=== PATIENT | male | born 1945 | race Caucasian/White ===

== ENCOUNTER → 2017-09-19 08:16 | Outpatient (CLI) | payer MEDICARE, OTHER, SELFPAY ==
--- NOTE | 2017-09-19 08:35 | MERGEMPI_ITS ---
*[facility]* *[facility]* [address] [place] [address] Myocardial Perfusion Imaging - SPECT Kumar protocol Date of study: 09/19/2017 *PATIENT PRESENTATION* Height: 175.3cm (69in) Blood Pressure: Weight: 116.4kg (256lb) BSA: 2.43m^2 Referring physician: Russell Moreira Ordering physician: Jimmy Swann Impressions: Normal myocardial perfusion and contraction after pharmacological stress. Summary: 1. Myocardial perfusion imaging: No myocardial perfusion defects noted. 2. The calculated left ventricular ejection fraction after stress: 57%. LV global systolic function is normal. No left ventricular regional motion abnormality. 3. 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 4. Imaging information: gated. Image quality reduced due to diaphragmatic attenuation. Attenuation correction used. Indication: R07.9. History: REASON FOR TESTING: EXERTIONAL CHEST PAIN OVER THE LAST SEVERAL MONTHS. PMH: HYPERTENSION, HYPERLIPIDEMIA, DEPRESSION, DM, CAD S/P LAD STENTING IN 2001, AND NSTEMI S/PLAD TANVI 10/2013. ERECTILE DISORDER. FAMILY HX: FATHER- HYPERTENSION, HYPERCHOLESTEROLEMIA, ASCD. MOTHER- CVA, HYPERCHOLESTEROLEMIA. SMOKING: FORMER SMOKER. QUIT 2001 EXCERCISE: NO REGULAR EXCERCISE. Risk factors: Cholesterol: 178mg/dl. HDL: 54mg/dl. LDL: 114mg/dl. Triglycerides: 84mg/dl. ALLERGIES: NKDA. MEDICATIONS: ASPIRIN 81 MG DAILY, ATORVASTATIN 80 MG DAILY, BUPROPION HCL 150 MG BID, LORATADINE 10 MG DAILY, LOSARTAN 50 MG DAILY, METOPROLOL 25 MG BID, MULTIVITAMIN 1 DAILY, NITROGLYCERIN 0.4 MG SL NEEDED, SILDENAFIL 50 MG NEEDED, TICAGRELOR 90 MG BID. Imaging Technique: Protocol: Kumar protocol. Acquisition: Gated SPECT; 1 day - rest/stress. The patient was imaged in the supine position. Attenuation correction used. Isotope administration: - Rest. Tc[99m]-sestamibi. Dose: 12.6mCi. Injection time: 09:00 AM. Injection to stress time: 00:45. - Stress. Tc[99m]-sestamibi. Dose: 37mCi. Injection time: 11:25 AM. 1-2 min before end of exercise Baseline ECG: LAST EKG 10/17/13- SINUS RHYTHM, FIRST DEGREE AVB, RBBB, LAFB. HR 62. TODAY'S EKG-SINUS RHYTH, FIRST DEGREE AVB, RBBB, LAFB. HR 62. 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 Stress protocol: + +---+ +---+ !Stage !HR !BP (mmHg) !Sat! + +---+ +---+ !Baseline supine !62 !180/94 (123)!97%! + +---+ +---+ !Baseline standing !62 !174/90 (118)!---! + +---+ +---+ !Stage I; 1.7mph, 10degrees; 3 min!124!184/90 (121)!95%! + +---+ +---+ !Recovery; 1 min !132!210/98 (135)!---! + +---+ +---+ !Recovery; 3 min !89 !218/90 (133)!---! + +---+ +---+ !Recovery; 6 min !79 !178/88 (118)!---! + +---+ +---+ * Stress results: The rate-pressure product for the peak heart rate and blood pressure was 20038tt Hg/min. Stress ECG: EXCERCISE TESTING ENDED IN 4MINS, 15 SECS DUE TO FATIGUE . MAX HR WAS 138, 93% OF TARGET. HYPERTENSIVE BLOOD PRESSURE RESPONSE. METS: 6.14. ECTOPY: NONE NOTED. ANGINA: NO REPORTED CHEST PAIN OR PRESSURE. ISCHEMIA: NO ISCHEMIC CHANGES NOTED, FUNCTIONAL CAPACITY: AVERAGE CAPACITY. Myocardial perfusion: Imaging information: gated. Image quality reduced due to diaphragmatic attenuation. Left ventricular size is normal. No myocardial perfusion defects noted. Ventricular Function (Wall Motion): The calculated left ventricular ejection fraction after stress: 57%. LV global systolic function is normal. No left ventricular regional motion abnormality. Study data: Russell Moreira MD supervised and was readily available during the procedure. This study was interpreted by [facility]. Study status: Routine. Consent: The risks, benefits, and alternatives to the procedure were explained to the patient and informed consent was obtained. Procedure: Initial setup. A baseline ECG was recorded. Surface ECG leads and manual cuff blood pressure measurements were monitored. Heart sounds: Normal. Lung sounds: Normal. Treadmill exercise testing was performed using the Kumar protocol. Study completion: All catheters inserted during the procedure were removed. The patient tolerated the procedure well and was discharged from the lab. Discharge: The patient left the laboratory in stable condition. Birthdate: Patient birthdate: 1945. Sex: Gender: male. Study date: Study date: 09/19/2017. Study time: 08:35 AM. Signature Documentation: - The imaging portion of this study was interpreted by [facility]utter Russell Moreira MD. - The Stress ECG portion of this study was interpreted by Russell Moreira MD. Electronically signed by Russell Moreira 09/19/2017 12:58
== END ==
PROVIDERS: PCP Family Medicine; Visit Provider Family Medicine
DX: R07.89 Other chest pain (principal); I10 Essential (primary) hypertension; E78.5 Hyperlipidemia, unspecified; Z95.5 Presence of coronary angioplasty implant and graft
CPT/HCPCS: 78452; 93017; 93016; 93018

== ENCOUNTER 2017-10-29 11:38 | Outpatient (CLI) | payer MEDICARE, OTHER, SELFPAY ==
[2017-10-29 14:57] LABS: BUN 16 mg/dL (7-18); Calcium 9.1 mg/dL (8.5-10.1); Chloride 104 mmol/L (98-107); Glucose 99 mg/dL (70-100); Potassium 4.3 mmol/L (3.5-5.1); Sodium 141 mmol/L (136-145)
== END 2017-10-29 11:58 ==
PROVIDERS: PCP Family Medicine; Visit Provider Family Medicine
DX: I10 Essential (primary) hypertension (principal)
CPT/HCPCS: 36415; 80048

== ENCOUNTER 2018-10-19 16:37 | Emergency (ER) | payer MEDICARE, OTHER, SELFPAY ==
[2018-10-19] VITALS (41 sets, daily range): BP systolic 133–178; BP diastolic 61–97; PULSE 56–92; RESP 11–24; TEMP 36.7; O2SAT 92–98
[2018-10-19 17:18] LABS: Abs Immature Grans 0.03 k/cumm (0.0-0.09); Absolute Basophil Count 0.05 k/cumm (0.0-0.2); Absolute Eosinophil Count 0.09 k/cumm (0.0-0.7); Absolute Lymphocyte Count 2.06 k/cumm (1.2-3.4); Absolute Monocyte Count 0.77 k/cumm (0.11-0.7); Absolute Neutrophil Count 7.51 k/cumm (1.2-6.7); Basophils % 0.5; Eosinophils % 0.9; HGB 15.1 g/dL (13.5-17.5); Immature Grans % 0.3; Lymphocytes % 19.6; Mean Corp. HGB Concentration 33.6 g/dL (32.0-36.0); Mean Corpuscular Hemoglobin 30.5 pg (27.0-33.0); Mean Corpuscular Volume 90.9 fL (80-95); Monocytes % 7.3; Neutrophils % 71.4; Platelet Count 266 x1000/uL (130-400); RBC 4.95 m/cumm (4.50-6.00); White Blood Cell Count 10.51 k/cumm (4.4-10.8)
[2018-10-19] MEDS: MORPHine 10 MG/ML VIAL 2 MG IVP ×2 (17:19→18:18)
[2018-10-19] MEDS: Ondansetron 4 MG/2 ML VIAL IVP (17:19)
[2018-10-19 17:31] LABS: PTT Activated 24.8 sec (21.0-31.4); Prothrombin Time 10.4 sec (9.3-11.0)
--- NOTE | 2018-10-19 17:32 | DI.RAD_ITS ---
SYMPTOM/DIAGNOSIS: CHEST PAIN PA AND LATERAL CHEST: The heart is at the upper limits of normal in size. Lungs appear grossly clear. No pleural effusion is seen. CONCLUSION: No evidence of acute intrapulmonary process.
[2018-10-19 17:36] LABS: ALT 32 U/L (16-63); AST 19 U/L (15-37); Albumin 3.5 g/dL (3.4-5.0); Alkaline Phosphatase 66 U/L (46-116); Anion Gap 8.7 mmol/L (3-11); BUN 22 mg/dL (7-18); Bilirubin, Total 0.5 mg/dL (0.2-1.0); CO2 27.3 mmol/L (21.0-32.0); CREATININE 1.01 mg/dL (0.70-1.30); Calcium 9.1 mg/dL (8.5-10.1); Chloride 105 mmol/L (98-107); Glucose 116 mg/dL (70-100); Magnesium 1.5 mg/dL (1.8-2.4); NT-proBNP 646 pg/mL; Potassium 3.7 mmol/L (3.5-5.1); Sodium 141 mmol/L (136-145); Total Protein 7.1 g/dL (6.4-8.2)
[2018-10-19 17:39] LABS: Troponin I 0.11 ng/mL (0.00-0.06)
[2018-10-19] MEDS: Aspirin 81 MG CHEW 324 MG CH (17:59)
--- NOTE | 2018-10-19 18:07 | DI.VRAD_ITS ---
EXAM: XR Chest, 2 Views EXAM DATE/TIME: 10/19/2018 5:06 PM CLINICAL HISTORY: 72 years old, male; Chest pain TECHNIQUE: Imaging protocol: XR of the chest Views: 2 views. COMPARISON: CR LEFT RIBS TO INCLUDE CXR 09/07/2014 6:39 PM FINDINGS: Lungs: Hyperexpanded lung maki consistent with COPD Pleural space: Unremarkable. No pleural effusion. No pneumothorax. Heart/Mediastinum: Stable cardiac silhouette Bones/joints: Osseous structures are stable IMPRESSION: Hyperexpanded lung maki consistent with COPD Dictated and Authenticated by: Kika George MD. Ordering:SARAY Bailey MD
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
[2018-10-19] MEDS: Heparin 5,000 UNITS/ML VIAL 6700 UNITS IV (19:20)
== END 2018-10-19 20:55 ==
LOC: ER 17:26
PROVIDERS: Emergency Provider Physician Assistant; PCP Family Medicine
DX: R07.9 Chest pain, unspecified (principal); I25.2 Old myocardial infarction; Z87.891 Personal history of nicotine dependence
CPT/HCPCS: 36415; 80053; 93005; 96365; 96367; 96375; 96376; 99285; 71046; 83735; 83880; 84484; 85025; 85610; 85730; 93010; J1644; J2270; J2405

== ENCOUNTER 2018-11-05 15:06 | Outpatient (RCR) | payer MEDICARE, OTHER, SELFPAY | END 2018-11-11 23:59 | disposition home or self-care (01) | LOC: CR 15:06 | PROVIDERS: PCP Family Medicine; Visit Provider Family Medicine | DX: Z51.89 Encounter for other specified aftercare (principal) ==

== ENCOUNTER 2018-12-09 13:07 | Outpatient (RCR) | payer MEDICARE, OTHER, SELFPAY | END 2018-12-12 23:59 | disposition home or self-care (01) | LOC: CR 13:07 | PROVIDERS: PCP Family Medicine; Visit Provider Family Medicine | DX: Z51.89 Encounter for other specified aftercare (principal) | CPT/HCPCS: S9472 ==

== ENCOUNTER 2019-01-08 11:40 | Outpatient (RCR) | payer MEDICARE, OTHER, SELFPAY | END 2019-01-11 23:59 | disposition home or self-care (01) | LOC: CR 11:40 | PROVIDERS: PCP Family Medicine; Visit Provider Family Medicine | DX: Z51.89 Encounter for other specified aftercare (principal); I25.2 Old myocardial infarction; Z98.61 Coronary angioplasty status | CPT/HCPCS: S9472 ==

== ENCOUNTER 2019-02-07 14:22 | Outpatient (RCR) | payer MEDICARE, OTHER, SELFPAY | END 2019-02-11 23:59 | disposition home or self-care (01) | LOC: CR 14:22 | PROVIDERS: PCP Family Medicine; Visit Provider Family Medicine | DX: Z51.89 Encounter for other specified aftercare (principal); I25.2 Old myocardial infarction; Z98.61 Coronary angioplasty status | CPT/HCPCS: S9472 ==

== ENCOUNTER 2019-03-12 11:02 | Outpatient (RCR) | payer MEDICARE, OTHER, SELFPAY | END 2019-03-14 23:59 | disposition home or self-care (01) | LOC: CR 11:02 | PROVIDERS: PCP Family Medicine; Visit Provider Family Medicine | DX: Z51.89 Encounter for other specified aftercare (principal); I25.2 Old myocardial infarction; Z98.61 Coronary angioplasty status | CPT/HCPCS: S9472 ==

== ENCOUNTER 2019-04-11 13:39 | Outpatient (RCR) | payer MEDICARE, OTHER, SELFPAY | END 2019-04-12 23:59 | disposition home or self-care (01) | LOC: CR 13:39 | PROVIDERS: PCP Family Medicine; Visit Provider Family Medicine | DX: I25.2 Old myocardial infarction (principal); Z98.61 Coronary angioplasty status; Z51.89 Encounter for other specified aftercare | CPT/HCPCS: S9472 ==

== ENCOUNTER 2019-04-18 13:44 | Outpatient (RCR) | payer MEDICARE, OTHER, SELFPAY | END 2019-05-13 23:59 | disposition home or self-care (01) | LOC: CR 13:44 | PROVIDERS: PCP Family Medicine; Visit Provider Family Medicine | DX: I25.2 Old myocardial infarction (principal); Z98.61 Coronary angioplasty status; Z51.89 Encounter for other specified aftercare | CPT/HCPCS: S9472 ==

== ENCOUNTER 2020-06-25 03:58 | Outpatient (CLI) | payer MEDICARE, OTHER, SELFPAY ==
[2020-06-25 12:00] LABS: Hemoglobin A1C 6.6 % (<5.7)
[2020-06-25 12:49] LABS: Calculated LDL 64 mg/dL (<100); Cholesterol 118 mg/dL (<200); HDL Cholesterol 46 mg/dL (40-60); Potassium 4.8 mmol/L (3.5-5.1); Triglyceride 44 mg/dL (<150)
== END 2020-06-25 03:59 | disposition home or self-care (01) ==
LOC: LBO 03:59
PROVIDERS: PCP Nurse Practitioner; Visit Provider Nurse Practitioner
DX: I10 Essential (primary) hypertension (principal); R73.03 Prediabetes; I25.10 Atherosclerotic heart disease of native coronary artery without angina pectoris
CPT/HCPCS: 36415; 80061; 82565; 83036; 84132

== ENCOUNTER → 2020-07-06 08:57 | Outpatient (BNVA) | payer MEDICARE, OTHER, SELFPAY | PROVIDERS: PCP Nurse Practitioner; Referring Provider Nurse Practitioner; Visit Provider Surgery | DX: L72.3 Sebaceous cyst (principal); I25.2 Old myocardial infarction; Z79.01 Long term (current) use of anticoagulants | CPT/HCPCS: 99212; 99213 ==

== ENCOUNTER → 2020-07-16 09:25 | Outpatient (BNVA) | payer MEDICARE, OTHER, SELFPAY | PROVIDERS: PCP Nurse Practitioner; Referring Provider Nurse Practitioner; Visit Provider Surgery | DX: L72.3 Sebaceous cyst (principal) | CPT/HCPCS: 11404; 11422; 99212 ==

== ENCOUNTER 2020-08-02 14:41 | Emergency (ER) | payer MEDICARE, OTHER, SELFPAY ==
[2020-08-02] VITALS (17 sets, daily range): BP systolic 102–135; BP diastolic 48–62; PULSE 58–64; RESP 7–19; TEMP 36.6; O2SAT 90–96
--- NOTE | 2020-08-02 14:30 | RT.EKG_ITS ---
APPROVED REPORT Exam: Resting ECG Reason for Exam: chest trauma Patient Location: E HR:62 bpm ECG Measurements Heart Rate 62 AXIS HI 264 P 0 QRSd 153 QRS -93 QT 421 T 24 QTc 430 Conclusion Sinus rhythm...normal P axis, V-rate 60- 99 Prolonged HI interval...HI >220, V-rate 50- 90 RBBB and LAFB...QRSd >120mS, axis(-40,240) Physician: No stemi, unchanged
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
[2020-08-02] MEDS: Acetaminophen 500 MG TAB 1000 MG PO (15:08)
[2020-08-02] MEDS: Lidocaine 5% Patch 1 PATCH TP (15:08)
[2020-08-02 15:17] LABS: Abs Immature Grans 0.05 10^3/uL (0.0-0.06); Absolute Basophil Count 0.06 10^3/uL (0.0-0.2); Absolute Eosinophil Count 0.03 10^3/uL (0.0-0.7); Absolute Lymphocyte Count 1.21 10^3/uL (1.2-3.4); Absolute Neutrophil Count 10.27 10^3/uL (1.2-6.7); Basophils % 0.5; Eosinophils % 0.2; HCT 44.1 % (40.0-50.0); HGB 14.3 g/dL (13.5-17.5); Immature Grans % 0.4; Lymphocytes % 9.7; MCHC 32.4 % (32.0-36.0); MCV 92.6 fL (80-95); MPV 9.7 fL (8.0-11.0); Monocytes % 7.2; Nucleated RBC 0 %; Platelet Count 306 10^3/uL (130-400); RBC 4.76 10^6/uL (4.36-5.78); RDW 14.6 % (11.8-14.1); RDW-SD 49.9 fL; WBC 12.52 10^3/uL (4.4-10.8)
[2020-08-02 15:32] LABS: ALT 51 U/L (16-63); AST 31 U/L (15-37); Albumin 3.3 g/dL (3.4-5.0); Alkaline Phosphatase 65 U/L (46-116); Anion Gap 9.6 mmol/L (3-11); BUN 19 mg/dL (7-18); Bilirubin, Total 0.6 mg/dL (0.2-1.0); CO2 25.4 mmol/L (21.0-32.0); CREATININE 1.3 mg/dL (0.70-1.30); Calcium 9.2 mg/dL (8.5-10.1); Chloride 105 mmol/L (98-107); Estimated GFR 53.67 (mL/min/1.73m2); Glucose 151 mg/dL (74-106); Lipase 94 U/L (73-393); Potassium 4.6 mmol/L (3.5-5.1); Sodium 140 mmol/L (136-145); Total Protein 6.9 g/dL (6.4-8.2)
[2020-08-02 15:42] LABS: Troponin I < 0.05 ng/mL (<0.06)
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
--- NOTE | 2020-08-03 08:07 | ED.FU.B_ITS ---
Dr. Resendiz called today to state he noted a discrepancy on the CT chest read as negative for fracture per vrad yesterday as Possible acute versus chronic left superior sternal fracture at the chondral junction with the left 1st rib. Please correlate clinically. Review of pt's chart notes that pt c/o L sided chest pain. These images were pushed to [facility] trauma who reviewed them and noted that if this is an acute fracture, recommendations would have been for 6 to 8 hours of observation in the ED with a negative troponin and EKG. Review of chart notes that patient had a negative troponin and unchanged EKG from previous. Recommend discussion with patient and if he denies any palpitations, dizziness or other concerning cardiac type symptoms, recommend supportive care with pain control at this time and no other recommendations. Patient was called at home stating that he has had some pain in the area but denies any palpitations, dizziness, shortness of breath. Patient is on Plavix and aspirin and cannot take ibuprofen. He is requesting Tylenol No. 3 for pain. A prescription for 7 tablets of Acetaminophen 300mg/codeine 30 mg sent electronically to [facility] in [place]. Dr. Resendiz also noted an Incidental 7 millimeter mean diameter left upper lobe pulmonary nodule. Six-month follow-up chest CT recommended in a smoker, 12 month follow-up chest CT in a nonsmoker. of which pt had been made aware yesterday. This was also discussed with patient and he is aware and will follow up with his primary care doctor in [address] chest. Patient also advised to follow-up with his primary care doctor within the next week for reevaluation and to return here immediately with any worsening symptoms.
== END 2020-08-02 17:28 | disposition home or self-care (01) ==
PROVIDERS: Emergency Provider Student in an Organized Health Care Education/Training Program; PCP Nurse Practitioner
DX: R07.82 Intercostal pain (principal); M25.512 Pain in left shoulder
CPT/HCPCS: 36415; 71250; 80053; 83690; 93005; 99285; 84484; 85025; 93010

== ENCOUNTER 2020-10-25 04:18 | Outpatient (CLI) | payer MEDICARE, OTHER, SELFPAY | END 2020-10-25 04:19 | disposition home or self-care (01) | LOC: LBO 04:18 | PROVIDERS: PCP Nurse Practitioner; Visit Provider Nurse Practitioner | DX: I10 Essential (primary) hypertension (principal); E11.9 Type 2 diabetes mellitus without complications | CPT/HCPCS: 36415; 82565 ==

== ENCOUNTER 2020-11-04 00:26 | Outpatient (CLI) | payer MEDICARE, OTHER, SELFPAY ==
--- NOTE | 2020-11-04 07:30 | DI.CT_ITS ---
Exam(s) CT CHEST WO EXAM: CT CHEST WO CLINICAL HISTORY: follow up PULMONARY NODULE,R91.1. TECHNIQUE: Multi planar reconstructions were performed. CONTRAST MATERIAL: None COMPARISON: CT CT CHEST WO from 08/02/[address] THORACIC SPINE RECONS from 08/02/2020 FINDINGS: CHEST: LUNGS: The previously described 6-7 millimeter nodule in the posterior segment the left upper lobe is unchanged. No new additional left lung findings. No pleural effusion. In the opposite-right lung there is an unchanged 4 millimeter nodule in the right middle lobe. Anoth er smaller nearby 2 millimeter nodules also unchanged. Tiny calcified granuloma in the posterior bas al segment of the right lower lobe is unchanged. No new right lung findings. No pleural effusion. There are no new significant findings in the trachea and mainstem bronchi. MEDIASTINUM: There is no obvious hilar nor mediastinal adenopathy. Visualized thyroid unremarkable.No obvious axillary adenopathy CARDIAC: Heart size normal. No pericardial effusion. Heavy coronary artery calcification in LAD not ed.Caliber of the thoracic aorta is within normal limits. VISUALIZED UPPER ABDOMEN:No significant adrenal masses. Multiple tiny splenic granulomas noted. Gal lbladder is surgically absent. Tiny granuloma in the right hepatic lobe noted. OSSEOUS: No significant osseous lesions.. IMPRESSION: 1. Stable appearance of the small bilateral nodules, unchanged from the recent CT scan of 08/03/2019, 3 months ago. No new focal pulmonary findings nor pleural effusions. No obvious intrathoracic minesh opathy. 2. Coronary artery calcification is noted. 3. Recommend follow-up CT scan in 6 months. RADIATION DOSE DELIVERED: 712.7mGy.cm Total DLP DATA REPOSITORY: All CT scans at this facility are submitted to the National Radiology Data Registry (NRDR) Dose Index Registry (DIR) with the [employer] (ACR). RADIATION OPTIMIZATION: All CT scans at this facility use at least one of these dose optimization te chniques: automated exposure control; mA and/or kV adjustment per patient size (includes targeted exa ms where dose is matched to clinical indication); or iterative reconstruction.
== END 2020-11-04 00:46 ==
PROVIDERS: PCP Nurse Practitioner; Visit Provider Nurse Practitioner
DX: R91.1 Solitary pulmonary nodule (principal); I25.10 Atherosclerotic heart disease of native coronary artery without angina pectoris
CPT/HCPCS: 71250

== ENCOUNTER 2021-03-08 12:48 | Outpatient (CLI) | payer MEDICARE, OTHER, SELFPAY ==
--- NOTE | 2021-03-08 09:45 | DI.US_ITS ---
Exam(s) US SCROTUM EXAM: US SCROTUM CLINICAL HISTORY: worsening testicular pain, N50.819. TECHNIQUE: Scrotal ultrasound performed using grayscale, color-flow and spectral Doppler analysis. COMPARISON: No exams were available for comparison FINDINGS: Right testicle: 3.8 x 2.2 x 3.0 cm Echogenicity: Normal. Contour: Smooth. Mass: None seen. Microlithiasis: None. Hydrocele: There is a small hydrocele. It measures 3.9 x 1.2 x 3.3 cm. Variocele: None. Hernia: No peristalsing bowel loop identified. Epididymis: Normal. Right inguinal region: No mass is seen sonographically. Left testicle: 3.4 x 1.9 x 2.3 cm Echogenicity: Normal. Contour: Smooth. Mass: None seen. Microlithiasis: None. Hydrocele: None. Variocele: None. Hernia: No peristalsing bowel loop identified. Epididymis: Normal. DOPPLER: Color: Symmetric and uniform, no hyperemia. Duplex: Bilateral testicular arterial waveforms visualized. IMPRESSION: 1. Normal appearing bilateral testicles. 2. Small right hydrocele. 3. No sonographic evidence of a right inguinal mass or hernia. DATA REPOSITORY:
== END 2021-03-08 13:08 ==
PROVIDERS: PCP Nurse Practitioner; Visit Provider Nurse Practitioner
DX: N50.811 Right testicular pain (principal); N43.3 Hydrocele, unspecified
CPT/HCPCS: 76870

== ENCOUNTER 2021-06-02 18:48 | Inpatient (IN) | payer MEDICARE, OTHER, SELFPAY ==
[2021-06-02] VITALS (27 sets, daily range): BP systolic 110–140; BP diastolic 55–96; PULSE 57–72; RESP 10–21; TEMP 36.4–36.7; O2SAT 94–99
--- NOTE | 2021-06-02 18:45 | DI.CT_ITS ---
Exam(s) CT HEAD - STROKE PROTOCOL EXAM: CT HEAD - STROKE PROTOCOL CLINICAL HISTORY: left sided weakness, balance issues for 3 days. TECHNIQUE: Imaging Protocol: Axial computed tomography images with coronal and sagittal reformatted images were created and reviewed COMPARISON: No exams were available for comparison FINDINGS: Ventricles and Extra axial spaces: Ventricular asymmetry due to mild right-sided edema. Hemorrhage: None. Cerebral parenchyma: Mild atrophy greatest in the frontal regions. Area of intermediate low signal i n the right basal ganglia region as well as low-density in the right parietal region, watershed area, consistent with subacute infarcts. Midline shift: None. Brainstem/Cerebellum: Normal. Calvarium: Normal. Visualized Paranasal sinuses/Mastoids: Clear. Soft Tissues: Unremarkable. IMPRESSION: Areas of subacute infarct in the right basal ganglia and right parietal lobe. RADIATION DOSE DELIVERED: 768.42mGy.cm Total DLP DATA REPOSITORY: All CT scans at this facility are submitted to the National Radiology Data Registry (NRDR) Dose Index Registry (DIR) with the [employer] (ACR). RADIATION OPTIMIZATION: All CT scans at this facility use at least one of these dose optimization te chniques: automated exposure control; mA and/or kV adjustment per patient size (includes targeted exa ms where dose is matched to clinical indication); or iterative reconstruction.
--- NOTE | 2021-06-02 18:45 | RT.EKG_ITS ---
APPROVED REPORT Exam: Resting ECG Reason for Exam: stroke Patient Location: E HR:58 bpm ECG Measurements Heart Rate 58 AXIS WV 307 P 55 QRSd 149 QRS -71 QT 449 T 1 QTc 439 Conclusion Sinus bradycardia...rate< 60 Prolonged WV interval...WV >220, V-rate 50- 90 RBBB and LAFB...QRSd >120mS, axis(-40,240) sinus bradycardia, prolonged WV, normal QT, bifasciular block old
--- NOTE | 2021-06-02 18:58 | DI.RAD_ITS ---
Exam(s) XR PORTABLE CHEST AP EXAM: XR PORTABLE CHEST AP CLINICAL HISTORY: left sided weakness, hx of CAD TECHNIQUE: 2D digital imaging was performed. Portable semi-erect view. COMPARISON: CR,XR XR CHEST 2V PA LATERAL from 10/19/[address] CHEST WO from 11/04/2020 FINDINGS: LUNGS: Suboptimally inflated but clear. No pleural abnormality seen. HEART: Normal. Aorta mildly tortuous. MEDIASTINUM: Normal. BONES: Degenerative changes. IMPRESSION: No acute pulmonary findings. DATA REPOSITORY: RADIATION DOSE DELIVERED:
--- NOTE | 2021-06-02 19:16 | ED.GENADUL_ITS ---
Discharge Plan Disposition Patient Disposition: STILL A PATIENT Condition: Stable Discharge Details Chief Complaint: CVA/TIA Clinical Impression: Ischemic stroke, Weakness, Facial droop Primary Care Provider: Renae Ferrer ED Provider: Jordy George Home Meds and New Rx's Prescriptions: No Action lisinopril 40 mg tablet 40 mg PO DAILY Qty: 90 4RF atenolol 25 mg tablet 25 mg PO DAILY Qty: 90 4RF metformin 500 mg tablet 500 mg PO BID Qty: 180 4RF sildenafil [Viagra] 50 mg tablet 50 mg PO PRN Qty: 10 3RF Rx Instructions: as directed, do not use within 24 hrs of Nitro cyclobenzaprine 10 mg tablet 10 mg PO HS Qty: 30 0RF multivitamin Tablet 1 tab PO DAILY 0RF nitroglycerin [Nitrostat] 0.4 mg tablet, sublingual 0.4 mg Sublingual PRN Qty: 25 3RF Rx Instructions: 1 TAB SL PRN chest pain hydrochlorothiazide 25 mg tablet 25 mg PO DAILY Qty: 90 4RF aspirin [Aspir-81] 81 MG tablet,delayed release (DR/EC) 81 mg PO DAILY 0RF atorvastatin 80 mg tablet 80 mg PO DAILY Qty: 90 4RF ipratropium bromide 42 mcg (0.06 %) spray,non-aerosol 2 spray ENRIQUE TID PRN (Reason: allergy symptoms) Qty: 15 11RF Rx Instructions: administer into each nostril amlodipine 10 mg tablet 10 mg PO DAILY Qty: 90 4RF Medical Decision Making 75-year-old male history of coronary disease, stent, presents with 3 days of worsening left upper and lower extremity weakness, left facial droop and balance issues, normal speech, 4 out of 5 strength left upper and left lower, 5 out of 5 strength upper and lower on the right extremity, left facial droop, concern for subacute stroke versus intracranial hemorrhage versus less likely Salcedo's palsy versus less likely electrolyte abnormality or infectious process. Screening labs imaging CT CTA head neck, close reassessment patient is outside window for thrombolytics, will need admission for MRI and neurology work-up 20: 37 resting comfortably no acute distress, evidence of subacute stroke right hemispheres consider embolic process given multifocal nature, currently determine what anticoagulant patient is on. Awaiting CTA results will be admitted for MRI and neurology. HPI General Date/Time Provider Initiated Documentation: 06/02/21 18:57 . HPI Narrative: 75-year-old male history of coronary disease, stents, presents brought in by EMS from bar, over the past 3 days his family and friends have noticed that he has had worsening balance and weakness specifically on his left side, patient had 1 drink in front of him per EMS, fingerstick normal in the field, patient is on blood thinner however he does not know which 1. Related Data Home Medications Medication Instructions Recorded Confirmed aspirin 81 mg tablet,delayed 81 mg PO DAILY tab-cap 10/22/13 04/05/21 release (Aspir-) metformin 500 mg tablet 500 mg PO BID #180 tab 08/05/20 04/05/21 atorvastatin 80 mg tablet 80 mg PO DAILY #90 tab-cap 08/31/20 04/05/21 ipratropium bromide 42 mcg (0.06 2 spray ENRIQUE TID PRN #15 ml 08/31/20 04/05/21 %) nasal spray amlodipine 10 mg tablet 10 mg PO DAILY #90 tab 09/30/20 04/05/21 atenolol 25 mg tablet 25 mg PO DAILY #90 tab 12/10/20 04/05/21 lisinopril 40 mg tablet 40 mg PO DAILY #90 tab 12/10/20 04/05/21 sildenafil 50 mg tablet (Viagra) 50 mg PO PRN #10 tab-cap 02/24/21 04/05/21 cyclobenzaprine 10 mg tablet 10 mg PO HS #30 tab 03/17/21 04/05/21 hydrochlorothiazide 25 mg tablet 25 mg PO DAILY #90 tab 04/05/21 04/05/21 multivitamin 1 tab PO DAILY 04/05/21 04/05/21 nitroglycerin 0.4 mg sublingual 0.4 mg SUBLINGUAL PRN #25 tab 04/05/21 04/05/21 tablet (Nitrostat) Previous Rx's Medication Instructions Recorded metformin 500 mg tablet 500 mg PO BID #180 tab 08/05/20 atorvastatin 80 mg tablet 80 mg PO DAILY #90 tab-cap 08/31/20 ipratropium bromide 42 mcg (0.06 2 spray ENRIQUE TID PRN #15 ml 08/31/20 %) nasal spray amlodipine 10 mg tablet 10 mg PO DAILY #90 tab 09/30/20 atenolol 25 mg tablet 25 mg PO DAILY #90 tab 12/10/20 lisinopril 40 mg tablet 40 mg PO DAILY #90 tab 12/10/20 sildenafil 50 mg tablet (Viagra) 50 mg PO PRN #10 tab-cap 02/24/21 cyclobenzaprine 10 mg tablet 10 mg PO HS #30 tab 03/17/21 hydrochlorothiazide 25 mg tablet 25 mg PO DAILY #90 tab 04/05/21 nitroglycerin 0.4 mg sublingual 0.4 mg SUBLINGUAL PRN #25 tab 04/05/21 tablet (Nitrostat) Allergies Allergy/AdvReac Type Severity Reaction Status Date / Time No Known Drug Allergies Allergy Unverified 06/02/21 19:29 General Stated Complaint: CVA/TIA YANELIS: 2 Review of Systems Narrative: Review of Systems Constitutional: negative Eyes: negative ENT: negative Cardiovascular: negative Respiratory: negative Gastrointestinal: negative : negative Musculoskeletal: negative Skin: negative Neurologic: Left-sided weakness, balance issues Psych: negative PFSH All Active Problems (Updated 06/02/21 @ 20:39 by Jordy George MD) Ischemic stroke (Acute) Weakness (Acute) Facial droop (Acute) Groin pain, chronic, right (Acute) Incidental lung nodule, > 3mm and < 8mm (Acute) 10/2020 CT 6-7mm KANIKA lobe; repeat 6 months 11/2020- pt refuses f/u CT Skin lesion (Acute) 11/2020- removed [facility] [place] benign Diabetes type 2, controlled (Acute) Essential hypertension (Acute) Status post coronary artery stent placement (Acute) 10/2018 (most recent) now has a total of 5 ([facility] [place]) NSTEMI (non-ST elevated myocardial infarction) (Acute) most recent 10/2018 [facility] [place] Diarrhea (Acute) Gastroesophageal reflux disease (Acute 01/28/13) diet controlled CAD (coronary artery disease) (Chronic) Hyperlipidemia (Chronic) Obesity (Chronic) Erectile dysfunction (Chronic) Seasonal allergies (Chronic) Medical History Closed fracture of radius Depression resolved when taken off beta neftali History of tobacco use quit smoking age 48 Myocardial infarct, old a. 1994 Perforation of tympanic membrane Pilonidal cyst 2 surgeries in the past- stable Surgical History Cholecystectomy (~09/2013) History of Surgical Procedure a. Tonsillectomy. b. Pilonidal cysts removed. c. Stenting LAD 2001 d. vasectomy PROCEDURES EXCISION OF PILONID CYST INSERT 1 VASCULAR STENT, 12/14; HEART Status post cholecystectomy Status post tonsillectomy Status post vasectomy Tonsillectomy Vasectomy Family History Mother Hyperlipidemia Stroke Breast cancer Father , 59 Diabetes Essential hypertension Heart disease Hyperlipidemia Maternal Grandfather Essential hypertension Heart disease Paternal Grandfather No problems noted. Maternal Grandmother Stroke Paternal Grandmother No problems noted. Sister No problems noted. Son No problems noted. Daughter No problems noted. Social History (Updated 12/20/20 @ 12:14 by Saima Ariza) Smoking/Tobacco Use Status: Former Tobacco Use tobacco type: cigarettes, pipe and cigars Tobacco: How many years used: 27 Second Hand Exposure: Yes Smoking risk assessment performed?: Yes Alcohol Intake: current Alcohol Intake frequency: a few times a week Alcohol type: beer, wine and hard liquor Substance use type: marijuana Caregiver/Support person: No Household members: none Housing: house Communication Needs: Hard of Hearing and Corrective Lenses Do you need help understanding health information?: Rarely Pets and animals: No Sexually active: No Current gender identity: decline to answer What is your relationship status?: How often do you talk on the phone with friends or family?: once per week How often do you get together with friends or relatives?: once per week How often do you attend scientologist or jewish services?: decline to answer Do you belong to any clubs or organized social groups?: yes Panel score (0-1 are the most socially isolated patients): 1 What type of physical activity do you participate in: none Nery/Episcopal: Holiness Special nery needs: No Seatbelt use: always Helmet use: Yes Helmet use: always Drive intox or ride w/intox limo driver: No Do you feel safe at home: Yes Do you feel safe in your relationship?: Yes Exam Narrative Exam Narrative: Physical Examination General: alert, awake, cooperative, resting comfortably, no acute distress HEENT: normocephalic, atraumatic; PERRL, EOM intact, conjunctiva normal; no nasal discharge; moist mucous membranes, oral and pharyngeal mucosa normal, tolerating secretions Neck: supple, trachea midline; full ROM Chest: normal to inspection Respiratory: normal respiratory effort, speaking in full sentences, clear to auscultation, no wheezing, rales or rhonchi Cardiac: regular rate, regular rhythm, S1S2 intact, no murmurs rubs or gallops GI: abdomen soft, non-tender, non-distended; no palpable mass or hepatosplenomegaly Skin: no lesions, rashes or trauma appreciated Neuro: AAOx3, normal speech, moving all extremities, 4 out of 5 strength left upper and left lower extremity, 5 out of 5 strength right upper and right lower extremity, slight facial droop left labial fold, normal speech, given patient's presentation I did not ambulate him Psych: Appropriate mood and affect Course Vital Signs Vital signs: Vital Signs Temperature 36.7 C 06/02/21 18:53 Pulse 57 L 06/02/21 18:53 Respiratory Rate 16 06/02/21 18:53 Blood Pressure 137/66 06/02/21 18:53 Pulse Oximetry 99 06/02/21 18:53 Temperature 36.7 C 06/02/21 18:53 Temperature Source Temporal Artery Scan 06/02/21 18:53 Pulse 57 L 06/02/21 18:53 Respiratory Rate 16 06/02/21 18:53 Respiratory Effort 06/02/21 18:53 Blood Pressure 137/66 06/02/21 18:53 Blood Pressure Position Supine 06/02/21 18:53 Pulse Oximetry 99 06/02/21 18:53 Oxygen Delivery Method Room Air 06/02/21 18:53 Oxygen Flow Rate 0 06/02/21 18:53 Pain Level 4 06/02/21 18:53 Comment 06/02/21 18:53
--- NOTE | 2021-06-02 19:23 | DI.VRAD_ITS ---
Addendum created by Yana Keita MD on 06/02/2021 7:28:47 PM EDT: I discussed case findings with Jordy George 06/02/2021 7:28 PM EDT. Initial report created on 06/02/2021 7:22:34 PM EDT: PROCEDURE INFORMATION: Exam: CT Head Without Contrast Exam date and time: 06/02/2021 7:13 PM Age: 75 years old Clinical indication: Weakness, extremity; Left; Additional info: Stroke protocol TECHNIQUE: Imaging protocol: Computed tomography of the head without contrast. Radiation optimization: All CT scans at this facility use at least one of these dose optimization techniques: automated exposure control; mA and/or kV adjustment per patient size (includes targeted exams where dose is matched to clinical indication); or iterative reconstruction. Other technique: STROKE PROTOCOL was implemented. COMPARISON: No relevant prior studies available. FINDINGS: Brain: Cerebral volume loss noted. There are areas of decreased attenuation involving the right basal ganglia and right temporoparietal watershed region with loss of weiss-white matter differentiation. The basal ganglial configuration is lobular extending to the centrum semiovale. There may be some very subtle involvement of the anterior right temporal lobe versus beam hardening artifact from bone of the middle cranial fossa. Scattered areas of decreased attenuation in the deep periventricular white matter consistent with small vessel ischemic change. No evidence for acute intracranial hemorrhage. Cerebral ventricles: No ventriculomegaly. Paranasal sinuses: Visualized sinuses are unremarkable. No fluid levels. Mastoid air cells: Visualized mastoid air cells are well aerated. Bones/joints: Unremarkable. No acute fracture. Soft tissues: Unremarkable. IMPRESSION: 1. Concern for cytotoxic edema involving right basal ganglia and parietotemporal watershed. Mild temporal lobe involvement on the right not excludable. 2. Senescent changes noted. ASSESSMENT: ASPECTS ([place] Stroke Program Early CT Score) is 8. Dictated and Authenticated by: Yana Keita MD. Ordering:LINDY Spence MD
[2021-06-02 19:29] LABS: Abs Immature Grans 0.04 10^3/uL (0.0-0.06); Absolute Basophil Count 0.08 10^3/uL (0.0-0.2); Absolute Eosinophil Count 0.08 10^3/uL (0.0-0.7); Absolute Lymphocyte Count 2.25 10^3/uL (1.2-3.4); Absolute Neutrophil Count 7.44 10^3/uL (1.2-6.7); Basophils % 0.7; Eosinophils % 0.7; HCT 36.3 % (40.0-50.0); HGB 11.5 g/dL (13.5-17.5); Immature Grans % 0.4; MCH 30.3 pg (27.0-33.0); MCHC 31.7 % (32.0-36.0); MCV 95.8 fL (80-95); MPV 9.8 fL (8.0-11.0); Monocytes % 7.5; Neutrophils % 69.7; Platelet Count 233 10^3/uL (130-400); RBC 3.79 10^6/uL (4.36-5.78); RDW 15.6 % (11.8-14.1); RDW-SD 54.8 fL; WBC 10.69 10^3/uL (4.4-10.8)
--- NOTE | 2021-06-02 19:30 | DI.VRAD_ITS ---
PROCEDURE INFORMATION: Exam: XR Chest Exam date and time: 06/02/2021 7:05 PM Age: 75 years old Clinical indication: Other: Weakness; Additional info: Stroke protocol TECHNIQUE: Imaging protocol: XR of the chest. Views: 1 view. Other technique: Portable exam. COMPARISON: CT CHEST WO 11/04/2020 1:17 PM FINDINGS: Lungs: There appear to be 1 or 2 calcified granulomata present in the lungs. No focal consolidation. Pleural spaces: Unremarkable. No pleural effusion. No pneumothorax. Heart/Mediastinum: Borderline cardiomegaly. Vasculature: Moderate aortic ectasia. Bones/joints: Unremarkable. IMPRESSION: No definite acute abnormality seen in the chest. Dictated and Authenticated by: Yana Keita MD. Ordering:LINDY Spence MD
[2021-06-02 19:43] LABS: PTT Activated 24.2 sec (21.0-27.5); Prothrombin Time 10.4 sec (9.3-11.0)
--- NOTE | 2021-06-02 19:45 | DI.CT_ITS ---
Exam(s) CT BRAIN NECK CTA EXAM: CT BRAIN NECK CTA CLINICAL HISTORY: left sided weakness. TECHNIQUE: Imaging Protocol: Axial CT angiography was performed with multi-slice acquisition and mu lti-planar and/or 3D reconstructions. CONTRAST MATERIAL: Intravenous: Omnipaque 350 Contrast volume:structured data in ml COMPARISON: CT CT HEAD - STROKE PROTOCOL from 06/02/2021 FINDINGS: CT Head W contrast: Ventricles and Extra axial spaces: Ventricular asymmetry secondary to mild edema. Hemorrhage: None. Cerebral parenchyma: Right basal ganglia and right parietal infarcts. Midline shift: None. Brainstem/Cerebellum: Normal. Calvarium: Normal. Visualized Paranasal sinuses/Mastoids: Clear. Soft Tissues: Unremarkable. Enhancement: No enhancing mass. CTA Brain W: Internal Carotid Arteries: Petrous: Normal. Cavernous: Normal. Cerebral: Normal. Middle Cerebral Arteries: Right: Occlusion middle cerebral artery at the M2 segments and severe stenosis of the M3 and M4 segme nts. No aneurysm. Left: No aneurysm, occlusion or significant stenosis. Anterior Cerebral Arteries: Right: No aneurysm, occlusion or significant stenosis. Left: No aneurysm, occlusion or significant stenosis. Posterior cerebral Arteries: Right: No aneurysm, occlusion or significant stenosis. Left: No aneurysm, occlusion or significant stenosis. Vertebral Arteries: Right: No aneurysm, occlusion or significant stenosis. Left: No aneurysm, occlusion or significant stenosis. Basilar Artery: No aneurysm, occlusion or significant stenosis. CTA Neck W: Common Carotid: Right: No aneurysm, occlusion or significant stenosis. Left: No aneurysm, occlusion or significant stenosis. External Carotid: Right: No aneurysm, occlusion or significant stenosis. Left: No aneurysm, occlusion or significant stenosis. Internal Carotid: Right: No aneurysm, occlusion or significant stenosis. Left: No aneurysm, occlusion or significant stenosis. Vertebral Artery: Right: No aneurysm, occlusion or significant stenosis. Left: No aneurysm, occlusion or significant stenosis. Lung Apices: Respiratory motion. Bones: Degenerative changes lower cervical spine. Soft Tissues: Normal. IMPRESSION: 1. 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 Severe stenosis of the M3 and M4 segments. 2. Subacute infarcts right basal ganglia and right parietal lobe. 3. Normal CTA examination of the neck. RADIATION DOSE DELIVERED: 1,351.57mGy.cm Total DLP 1,351.57mGy.cm Total DLP DATA REPOSITORY: All CT scans at this facility are submitted to the National Radiology Data Registry (NRDR) Dose Index Registry (DIR) with the [employer] (ACR). RADIATION OPTIMIZATION: All CT scans at this facility use at least one of these dose optimization te chniques: automated exposure control; mA and/or kV adjustment per patient size (includes targeted exa ms where dose is matched to clinical indication); or iterative reconstruction.
[2021-06-02 19:54] LABS: ALT 46 U/L (16-63); AST 31 U/L (15-37); Albumin 3.2 g/dL (3.4-5.0); Alkaline Phosphatase 67 U/L (46-116); Anion Gap 10.5 mmol/L (3-11); BUN 18 mg/dL (7-18); Bilirubin, Total 0.6 mg/dL (0.2-1.0); CO2 25.5 mmol/L (21.0-32.0); CREATININE 0.9 mg/dL (0.70-1.30); Calcium 8.8 mg/dL (8.5-10.1); Chloride 103 mmol/L (98-107); ETHANOL BLOOD 47.6 mg/dL (<10); Glucose 81 mg/dL (74-106); Magnesium 1.7 mg/dL (1.8-2.4); Potassium 3.5 mmol/L (3.5-5.1); Sodium 139 mmol/L (136-145); Total Protein 6.4 g/dL (6.4-8.2); Troponin I < 50 ng/L (<or=60)
[2021-06-02 20:39] LABS: Clarity Clear (Clear); Glucose Negative (Negative); Ketones 15 mg/dL (Negative); Leukocyte Esterase Negative (Negative); Nitrite Negative (Negative); Specific Gravity > 1.030 (1.005-1.025); pH 5.5 (5-8)
--- NOTE | 2021-06-02 20:39 | DI.VRAD_ITS ---
Addendum created by Yana Keita MD on 06/02/2021 8:44:56 PM EDT: I discussed case findings with Jordy George 06/02/2021 8:43 PM EDT. Initial report created on 06/02/2021 8:39:01 PM EDT: PROCEDURE INFORMATION: Exam: CT Angiography Head With Contrast, Arteriography Exam date and time: 06/02/2021 8:09 PM Age: 75 years old Clinical indication: Weakness; Additional info: Left sided weakness TECHNIQUE: Imaging protocol: Computed tomography angiography of the head with contrast. Exam focused on the arteries. 3D rendering (Not supervised by radiologist): MIP and/or 3D reconstructed images were created by the technologist. Radiation optimization: All CT scans at this facility use at least one of these dose optimization techniques: automated exposure control; mA and/or kV adjustment per patient size (includes targeted exams where dose is matched to clinical indication); or iterative reconstruction. Contrast material: OMNI 350; Contrast volume: 100 ml; Contrast route: INTRAVENOUS (IV); COMPARISON: CT HEAD - STROKE PROTOCOL 06/02/2021 7:13 PM FINDINGS: ANTERIOR CIRCULATION: Right internal carotid artery: Unremarkable. Intracranial segment is patent with no significant stenosis. No aneurysm. Right middle cerebral artery: There is thrombus and occlusion of the right M2 segment with markedly decreased flow with near total occlusion in the M3 and M4 segments of the middle cerebral artery. There may be M 5 involvement as well. Right anterior cerebral artery: Unremarkable. No occlusion or significant stenosis. No aneurysm. Left internal carotid artery: Unremarkable. Intracranial segment is patent with no significant stenosis. No aneurysm. Left middle cerebral artery: Unremarkable. No occlusion or significant stenosis. No aneurysm. Left anterior cerebral artery: Unremarkable. No occlusion or significant stenosis. No aneurysm. POSTERIOR CIRCULATION: Right vertebral artery: Unremarkable. No occlusion or significant stenosis. No aneurysm. Left vertebral artery: Unremarkable. No occlusion or significant stenosis. No aneurysm. Basilar artery: Unremarkable. No occlusion or significant stenosis. No aneurysm. Right posterior cerebral artery: Unremarkable. No occlusion or significant stenosis. No aneurysm. Left posterior cerebral artery: Unremarkable. No occlusion or significant stenosis. No aneurysm. Brain: No definite mass, mass effect, or midline shift. Cerebral ventricles: No ventriculomegaly. Bones/joints: Unremarkable. No acute fracture. Soft tissues: Unremarkable. IMPRESSION: Findings of concern for acute thrombus in the right MCA M2 segment with markedly decreased flow and near total occlusion in the M3, M4 and probable M 5 segments. PROCEDURE INFORMATION: Exam: CT Angiography Neck With Contrast Exam date and time: 06/02/2021 8:09 PM Age: 75 years old Clinical indication: Weakness; Additional info: Left sided weakness TECHNIQUE: Imaging protocol: Computed tomography angiography of the neck with contrast. 3D rendering (Not supervised by radiologist): MIP and/or 3D reconstructed images were created by the technologist. Radiation optimization: All CT scans at this facility use at least one of these dose optimization techniques: automated exposure control; mA and/or kV adjustment per patient size (includes targeted exams where dose is matched to clinical indication); or iterative reconstruction. Contrast material: OMNI 350; Contrast volume: 100 ml; Contrast route: INTRAVENOUS (IV); COMPARISON: CT HEAD - STROKE PROTOCOL 06/02/2021 7:13 PM FINDINGS: Right common carotid artery: No stenosis. No dissection or occlusion. Right internal carotid artery: No stenosis of the extracranial segment. No dissection or occlusion. Right external carotid artery: No occlusion or stenosis of the origin. Left common carotid artery: No stenosis. No dissection or occlusion. Left internal carotid artery: No stenosis of the extracranial segment. No dissection or occlusion. Left external carotid artery: No occlusion or stenosis of the origin. Right vertebral artery: No stenosis. No dissection or occlusion. Left vertebral artery: No stenosis. No dissection or occlusion. Soft tissues: Normal. No significant soft tissue swelling. Bones/joints: No acute fracture. IMPRESSION: No evidence for hemodynamically significant stenosis or occlusion. REFERENCES: NASCET CRITERIA. The degree of internal carotid artery stenosis is based on NASCET criteria. Normal is no stenosis. Mild is less than 50% stenosis. Moderate is 50-69% stenosis. Severe is 70% to 99% stenosis. Total occlusion is no detectable patent lumen. Dictated and Authenticated by: Yana Keita MD. Ordering:LINDY Spence MD
[2021-06-02 20:40] LABS: Bilirubin Negative (Negative); Blood Negative (Negative); Urobilinogen 0.2 EU/dL (Up TO 0.2)
[2021-06-02 21:02] LABS: *AMPHETAMINES SCREEN URINE Negative (Negative); *BARBITURATES SCREEN URINE Negative (Negative); *BENZODIAZEPINES SCREEN URINE Negative (Negative); Cannabinoids THC Positive (Negative); Cocaine Screen,Urine Negative (Negative); METHADONE URINE SCREEN Negative (Negative); OPIATES URINE SCREEN Negative (Negative)
--- NOTE | 2021-06-02 21:04 | ED.PROG_ITS ---
Date of service: 06/02/21 Time of Service: 21:04 Medical Decision Making Case is signed out to me by my colleague Dr. Radha Mayberry. Please refer to his HPI, physical exam, assessment and plan. Time of transfer of care 8:45 PM Abbreviated history, patient states that for the last 4 days he has been weak on the left-hand side. In spite of this he has continued to go through life, this evening he was found at the bar after having a few drinks and was acting a bit more weak than normal on the left-hand side. He was brought into the ER for further assessment. Family states that about 4 to 5 hours prior to arrival he felt that his symptoms may have gotten a little bit worse. Initial CT scan demonstrated prior strokes, Dr. Radha Mayberry then ordered CTA which showed evidence of an acute thrombus in the right MCA M2 segment markedly decreased flow near total occlusion in the M3, M4, and M5 segments. Results were received from [facility] at 8:40 PM. We did go in and reassessed the patient, and his neurologic assessment remained stable. We will reach out to [facility] for further discussion with neurology about the case. Of note initially the patient did think that he was on an anticoagulant medication, however nursing was able to verify just now that he is actually not on an anticoagulant and he is only on aspirin. 10:15 PM Discussed the case with [facility] neurology Dr. Quintero. He reviewed the images and assessment. At this time clinically the patient actually looks very well. Minimal decrease in strength on the left upper and lower extremity. Minimal left-sided facial droop. Patient feels very functional otherwise. He actually drove himself here from [place] [employer], and has been walking around all day, including here initially. After discussion with [facility], they do not feel that the patient would be a candidate for thrombolytics secondary to the timing of 4 days for the symptoms, additionally on their review of the imaging they feel that there is not necessarily a large clot present, however even if there was, they feel that the damage/ischemic damage to the tissue has already been done and based on his exam that the risk is a direct process recommend full dose aspirin, 300 mg of Plavix, and antihypercholesterol medication. They do not recommend heparin at this time. They recommend MRI as well. Otherwise I do not recommend transfer at this time. Discussed the case with the hospitalist Dr. Castañeda, he agrees with the assessment and plan. I have extensively reviewed the treatment plan with the patient. I have addressed all patient concerns at this time. I have also discussed the plan with the admitting physician and they agree with the current assessment and plan and have agreed to assume responsibility for the patient. All parties demonstrate verbal understanding and agreement with our assessment and plan at this time. The documentation in this chart was dictated using [employer] dictation software. Please excuse any dictation errors. Sign Out Sign Out Data: Sign Out Comment: awaiting CTA results for admission for neuro/MRI, subacute ischemic stroke Last updated by Jordy George MD at 06/02/21 20:41 Discharge Plan Disposition Patient Disposition: [facility] Condition: Stable Discharge Details Clinical Impression: Ischemic stroke, Weakness, Facial droop Primary Care Provider: Renae Ferrer ED Provider: Rubén Cobos Home Meds and New Rx's Prescriptions: No Action lisinopril 40 mg tablet 40 mg PO DAILY Qty: 90 4RF atenolol 25 mg tablet 25 mg PO DAILY Qty: 90 4RF metformin 500 mg tablet 500 mg PO BID Qty: 180 4RF sildenafil [Viagra] 50 mg tablet 50 mg PO PRN Qty: 10 3RF Rx Instructions: as directed, do not use within 24 hrs of Nitro cyclobenzaprine 10 mg tablet 10 mg PO HS Qty: 30 0RF multivitamin Tablet 1 tab PO DAILY 0RF nitroglycerin [Nitrostat] 0.4 mg tablet, sublingual 0.4 mg Sublingual PRN Qty: 25 3RF Rx Instructions: 1 TAB SL PRN chest pain hydrochlorothiazide 25 mg tablet 25 mg PO DAILY Qty: 90 4RF aspirin [Aspir-81] 81 MG tablet,delayed release (DR/EC) 81 mg PO DAILY 0RF atorvastatin 80 mg tablet 80 mg PO DAILY Qty: 90 4RF ipratropium bromide 42 mcg (0.06 %) spray,non-aerosol 2 spray ENRIQUE TID PRN (Reason: allergy symptoms) Qty: 15 11RF Rx Instructions: administer into each nostril amlodipine 10 mg tablet 10 mg PO DAILY Qty: 90 4RF
[2021-06-02 21:16] LABS: Tricyclic Antidepressants Negative (Negative)
[2021-06-02] MEDS: Clopidogrel 300 MG TAB PO (22:07)
[2021-06-02] MEDS: Aspirin 325 MG TAB PO (22:08)
--- NOTE | 2021-06-02 22:15 | HPE_ITS ---
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 He has a family history of atherosclerotic vessel disease and has been on high-dose statin with atorvastatin 80 mg daily and baby aspirin along with atenolol. In the ED he was loaded with Plavix 300 mg and will continue 75 mg daily. His aspirin was increased to full dose 325 mg daily and he will continue atorvastatin with beta-neftali to be metoprolol split dosing attempted to have permissive hypertension. Patient neurological symptoms appear to have slightly worsened since the ED note the patient was awakened from sleep for exam. Plan MRI with PT, OT and CARDIOLOGY PHYSICIAN to evaluate. Patient is a full code. He was not a candidate for tPA or more aggressive therapy because of late presentation as per [facility] teleneurology. He was advised to not have use of aspirin or Lovenox for DVT prophylaxis while having further evaluation of his subacute right CVA. (2) Essential hypertension: Status: Chronic Assessment and plan: Patient will be treated with metoprolol rather than atenolol and hold his other antihypertensives with permissive hypertension while being evaluated for his acute neurological symptoms. (3) Diabetes type 2, controlled: Status: Chronic Assessment and plan: Monitor while in the hospital with glucometer checks AC at bedtime as well as short acting insulin coverage if needed using sensitive scale. History of Present Illness History of Present Illness Chief Complaint: Left-sided weakness Narrative: This is a 75-year-old male patient who describes a 4 to 5 day history of intermittent left-sided weakness and left facial droop which he did not seek care until symptoms worsen and several hours prior to presentation to the ED via EMS. Patient was having a drink at the local [employer] bar and had driven himself to that location. He was evaluated in the ED and found to have positive CT for subacute changes in the right MCA distribution. He also was found to have decreased flow password. He had an acute thrombus in the same region. Teleneurology did not recommend acute intervention with patient outside window for tPA but did advise increased aspirin and loaded with Plavix with plans to continue. Presentation would include MRI with echo and bubble study. Cardiac monitoring was recommended as well. Hospitalization he was comfortable and seemed to have left-sided facial droop and weakness slightly increased from what was described by the last ED physician exam with strength being 4 out of 5. Patient was awakened in bed during my exam. He had no complaints of headache. He has had a history of atherosclerotic vessel disease. His risk factors are elevated. He does have high-dose statin as chronic treatment because of his heart disease and was only on a baby aspirin along with atenolol. It was advised that we observe patient with permissive hypertension with was to be performed with holding his usual regimen and having split dose metoprolol for blood pressure management. Patient offers no further history or complaints. See ED report with hand off and updated history. 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 Review of Systems Narrative: 13 point review of systems otherwise unrevealing or stable. Patient lives independently. PFS All Active Problems (Updated 06/03/21 @ 14:35 by Edvin Castañeda) Right sided cerebral hemisphere cerebrovascular accident (Acute) Ischemic stroke (Acute) Weakness (Acute) Facial droop (Acute) Groin pain, chronic, right (Acute) Incidental lung nodule, > 3mm and < 8mm (Acute) 10/2020 CT 6-7mm KANIKA lobe; repeat 6 months 11/2020- pt refuses f/u CT Skin lesion (Acute) 11/2020- removed [facility] benign Diabetes type 2, controlled (Chronic) Essential hypertension (Chronic) Status post coronary artery stent placement (Acute) 10/2018 (most recent) now has a total of 5 ([facility]) NSTEMI (non-ST elevated myocardial infarction) (Acute) most recent 10/2018 [facility] Diarrhea (Acute) Gastroesophageal reflux disease (Acute 01/28/13) diet controlled CAD (coronary artery disease) (Chronic) Hyperlipidemia (Chronic) Obesity (Chronic) Erectile dysfunction (Chronic) Seasonal allergies (Chronic) Medical History Closed fracture of radius Depression resolved when taken off beta neftali History of tobacco use quit smoking age 48 Myocardial infarct, old a. 1994 Perforation of tympanic membrane Pilonidal cyst 2 surgeries in the past- stable Surgical History Cholecystectomy (~09/2013) History of Surgical Procedure a. Tonsillectomy. b. Pilonidal cysts removed. c. Stenting LAD 2001 d. vasectomy PROCEDURES EXCISION OF PILONID CYST INSERT 1 VASCULAR STENT, 12/14; HEART Status post cholecystectomy Status post tonsillectomy Status post vasectomy Tonsillectomy Vasectomy Family History Mother Hyperlipidemia Stroke Breast cancer Father , 59 Diabetes Essential hypertension Heart disease Hyperlipidemia Maternal Grandfather Essential hypertension Heart disease Paternal Grandfather No problems noted. Maternal Grandmother Stroke Paternal Grandmother No problems noted. Sister No problems noted. Son No problems noted. Daughter No problems noted. Social History Smoking/Tobacco Use Status: Former Tobacco Use tobacco type: cigarettes, pipe and cigars Tobacco: How many years used: 27 Second Hand Exposure: Yes Smoking risk assessment performed?: Yes Alcohol Intake: current Alcohol Intake frequency: a few times a week Alcohol type: beer, wine and hard liquor Substance use type: marijuana Caregiver/Support person: No Household members: none Housing: house Communication Needs: Hard of Hearing and Corrective Lenses Do you need help understanding health information?: Rarely Pets and animals: No Sexually active: No Current gender identity: decline to answer What is your relationship status?: How often do you talk on the phone with friends or family?: once per week How often do you get together with friends or relatives?: once per week How often do you attend anglican or restoration services?: decline to answer Do you belong to any clubs or organized social groups?: yes Panel score (0-1 are the most socially isolated patients): 1 What type of physical activity do you participate in: none Nery/Church: Pentecostalism Special nery needs: No Seatbelt use: always Helmet use: Yes Helmet use: always Drive intox or ride w/intox motor bus driver: No Do you feel safe at home: Yes Do you feel safe in your relationship?: Yes Meds Allergies and Home Medications Allergies Allergy/AdvReac Type Severity Reaction Status Date / Time No Known Drug Allergies Allergy Unverified 06/02/21 19:29 Home Medications Medication Instructions Recorded Confirmed Type aspirin 81 mg tablet,delayed 81 mg PO DAILY tab-cap 10/22/13 06/02/21 History release (Aspir-) metformin 500 mg tablet 500 mg PO BID #180 tab 08/05/20 06/02/21 Rx atorvastatin 80 mg tablet 80 mg PO DAILY #90 tab-cap 08/31/20 06/02/21 Rx ipratropium bromide 42 mcg (0.06 2 spray ENRIQUE TID PRN #15 ml 08/31/20 06/02/21 Rx %) nasal spray amlodipine 10 mg tablet 10 mg PO DAILY #90 tab 09/30/20 06/02/21 Rx atenolol 25 mg tablet 25 mg PO DAILY #90 tab 12/10/20 06/02/21 Rx lisinopril 40 mg tablet 40 mg PO DAILY #90 tab 12/10/20 06/02/21 Rx sildenafil 50 mg tablet (Viagra) 50 mg PO PRN #10 tab-cap 02/24/21 06/02/21 Rx cyclobenzaprine 10 mg tablet 10 mg PO HS #30 tab 03/17/21 06/02/21 Rx hydrochlorothiazide 25 mg tablet 25 mg PO DAILY #90 tab 04/05/21 06/02/21 Rx multivitamin 1 tab PO DAILY 04/05/21 06/02/21 History nitroglycerin 0.4 mg sublingual 0.4 mg SUBLINGUAL PRN #25 tab 04/05/21 06/02/21 Rx tablet (Nitrostat) Exam Narrative Exam Narrative: General: Patient appears older than stated age, he is easily awakened and speaks clearly with only slight dysarthria with his left facial droop. In no acute distress. Alert and oriented x3. HEENT: Normocephalic, long weiss hair and weiss fontana with coarsened facial features. There is a left-sided facial droop when patient looks upward and at rest with the left corner of the mouth drooping. Eyes with pupils equal and reactive light symmetrically, extraocular movement intact and sclera anicteric. Oropharynx with moist mucosa. Tongue protrudes midline. Neck: Supple without JVD. No auscultated bruits. Back: Stooped posture without CVA tenderness. Lungs: Fair aeration and clear to auscultation percussion. Heart: Regular rate and rhythm with no appreciable murmur or gallop. Abdomen: Obese contour, soft nontender to palpation with no palpable hepatosplenomegaly. Genitalia/rectal exam: Exam deferred. Extremities: Without clubbing, cyanosis or pitting edema. No joint swelling. Joints have fair range of motion with patient having decreased movement of his left side. Peripheral pulses grossly intact. Skin: Pale, warm and dry with rough texture and slight decrease turgor. Neuro: Cranial nerves II through XII grossly intact except for left facial droop. Right upper and lower extremity has normal strength and movement. Left upper extremity with decreased grasp and 3 out of 5 strength with left lower extremity having 2-3 out of 5 strength and positive Babinski. Psych: Flattened affect with normal mood. No abnormal thought processes. Remote and recent memory appear to be grossly intact. Results Imaging Imaging Studies: Exam: CT Head Without Contrast Exam date and time: 06/02/2021 7:13 PM Age: 75 years old Clinical indication: Weakness, extremity; Left; Additional info: Stroke protocol TECHNIQUE: Imaging protocol: Computed tomography of the head without contrast. Radiation optimization: All CT scans at this facility use at least one of these dose optimization techniques: automated exposure control; mA and/or kV adjustment per patient size (includes targeted exams where dose is matched to clinical indication); or iterative reconstruction. Other technique: STROKE PROTOCOL was implemented. COMPARISON: No relevant prior studies available. FINDINGS: Brain: Cerebral volume loss noted. There are areas of decreased attenuation involving the right basal ganglia and right temporoparietal watershed region with loss of weiss-white matter differentiation. The basal ganglial configuration is lobular extending to the centrum semiovale. There may be some very subtle involvement of the anterior right temporal lobe versus beam hardening artifact from bone of the middle cranial fossa. Scattered areas of decreased attenuation in the deep periventricular white matter consistent with small vessel ischemic change. No evidence for acute intracranial hemorrhage. Cerebral ventricles: No ventriculomegaly. Paranasal sinuses: Visualized sinuses are unremarkable. No fluid levels. Mastoid air cells: Visualized mastoid air cells are well aerated. Bones/joints: Unremarkable. No acute fracture. Soft tissues: Unremarkable. IMPRESSION: 1. Concern for cytotoxic edema involving right basal ganglia and parietotemporal watershed. Mild temporal lobe involvement on the right not excludable. 2. Senescent changes noted. Exam: CT Angiography Head With Contrast, Arteriography Exam date and time: 06/02/2021 8:09 PM Age: 75 years old Clinical indication: Weakness; Additional info: Left sided weakness TECHNIQUE: Imaging protocol: Computed tomography angiography of the head with contrast. Exam focused on the arteries. 3D rendering (Not supervised by radiologist): MIP and/or 3D reconstructed images were created by the technologist. Radiation optimization: All CT scans at this facility use at least one of these dose optimization techniques: automated exposure control; mA and/or kV adjustment per patient size (includes targeted exams where dose is matched to clinical indication); or iterative reconstruction. Contrast material: OMNI 350; Contrast volume: 100 ml; Contrast route: INTRAVENOUS (IV);? COMPARISON: CT HEAD - STROKE PROTOCOL 06/02/2021 7:13 PM FINDINGS: ANTERIOR CIRCULATION: Right internal carotid artery: Unremarkable. Intracranial segment is patent with no significant stenosis. No aneurysm. Right middle cerebral artery: There is thrombus and occlusion of the right M2 segment with markedly decreased flow with near total occlusion in the M3 and M4 segments of the middle cerebral artery. There may be M 5 involvement as well. Right anterior cerebral artery: Unremarkable. No occlusion or significant stenosis. No aneurysm.? Left internal carotid artery: Unremarkable. Intracranial segment is patent with no significant stenosis. No aneurysm. Left middle cerebral artery: Unremarkable. No occlusion or significant stenosis. No aneurysm.? Left anterior cerebral artery: Unremarkable. No occlusion or significant stenosis. No aneurysm.? POSTERIOR CIRCULATION: Right vertebral artery: Unremarkable. No occlusion or significant stenosis. No aneurysm.? Left vertebral artery: Unremarkable. No occlusion or significant stenosis. No aneurysm.? Basilar artery: Unremarkable. No occlusion or significant stenosis. No aneurysm. Right posterior cerebral artery: Unremarkable. No occlusion or significant stenosis. No aneurysm.? Left posterior cerebral artery: Unremarkable. No occlusion or significant stenosis. No aneurysm.? Brain: No definite mass, mass effect, or midline shift. Cerebral ventricles: No ventriculomegaly. Bones/joints: Unremarkable. No acute fracture. Soft tissues: Unremarkable. IMPRESSION: Findings of concern for acute thrombus in the right MCA M2 segment with markedly decreased flow and near total occlusion in the M3, M4 and probable M 5 segments. PROCEDURE INFORMATION: Exam: CT Angiography Neck With Contrast Exam date and time: 06/02/2021 8:09 PM Age: 75 years old Clinical indication: Weakness; Additional info: Left sided weakness TECHNIQUE: Imaging protocol: Computed tomography angiography of the neck with contrast. 3D rendering (Not supervised by radiologist): MIP and/or 3D reconstructed images were created by the technologist. Radiation optimization: All CT scans at this facility use at least one of these dose optimization techniques: automated exposure control; mA and/or kV adjustment per patient size (includes targeted exams where dose is matched to clinical indication); or iterative reconstruction. Contrast material: OMNI 350; Contrast volume: 100 ml; Contrast route: INTRAVENOUS (IV);? COMPARISON: CT HEAD - STROKE PROTOCOL 06/02/2021 7:13 PM FINDINGS: Right common carotid artery: No stenosis. No dissection or occlusion. Right internal carotid artery: No stenosis of the extracranial segment. No dissection or occlusion. Right external carotid artery: No occlusion or stenosis of the origin.? Left common carotid artery: No stenosis. No dissection or occlusion. Left internal carotid artery: No stenosis of the extracranial segment. No dissection or occlusion. Left external carotid artery: No occlusion or stenosis of the origin.? Right vertebral artery: No stenosis. No dissection or occlusion. Left vertebral artery: No stenosis. No dissection or occlusion. Soft tissues: Normal. No significant soft tissue swelling. Bones/joints: No acute fracture. IMPRESSION: No evidence for hemodynamically significant stenosis or occlusion. Labs Result diagrams: 06/03/21 06:00 06/03/21 06:00 Labs: Laboratory Results - last 24 hr 06/02/21 06/02/21 06/02/21 18:58 19:05 19:05 WBC 10.69 RBC 3.79 L Hgb 11.5 L Hct 36.3 L MCV 95.8 H MCH 30.3 MCHC 31.7 L RDW 15.6 H Plt Count 233 MPV 9.8 Immature Gran % 0.4 Neutrophils % 69.7 Lymphocytes % 21.0 Monocytes % 7.5 Eosinophils % 0.7 Basophils % 0.7 Nucleated RBC % 0.0 Absolute Neutrophils 7.44 H Absolute Lymphocytes 2.25 Absolute Monocytes 0.80 Absolute Eosinophils 0.08 Absolute Basophils 0.08 PT 10.4 INR 1.0 APTT 24.2 Sodium 139 Potassium 3.5 Chloride 103 Carbon Dioxide 25.5 Anion Gap 10.5 BUN 18 Creatinine 0.9 Estimated GFR/1.73 m2 >= 60.00 Glucose 81 Calcium 8.8 Magnesium 1.7 L Total Bilirubin 0.6 AST 31 ALT 46 Alkaline Phosphatase 67 Troponin I < 50 Total Protein 6.4 Albumin 3.2 L TSH 2.60 Urine Color Urine Clarity Urine pH Ur Specific Nixon Urine Protein Urine Ketones Urine Blood Urine Nitrite Urine Bilirubin Urine Urobilinogen Ur Leukocyte Esterase Urine Glucose Urine Opiates Screen Urine Methadone Screen Ur Barbiturates Screen Ur Tricyclics Screen Ur Amphetamines Screen U Benzodiazepines Scrn Urine Cocaine Screen Ur THC Screen Ethyl Alcohol 47.6 H 06/02/21 06/02/21 20:27 20:27 WBC RBC Hgb Hct MCV MCH MCHC RDW Plt Count MPV Immature Gran % Neutrophils % Lymphocytes % Monocytes % Eosinophils % Basophils % Nucleated RBC % Absolute Neutrophils Absolute Lymphocytes Absolute Monocytes Absolute Eosinophils Absolute Basophils PT INR APTT Sodium Potassium Chloride Carbon Dioxide Anion Gap BUN Creatinine Estimated GFR/1.73 m2 Glucose Calcium Magnesium Total Bilirubin AST ALT Alkaline Phosphatase Troponin I Total Protein Albumin TSH Urine Color Yellow Urine Clarity Clear Urine pH 5.5 Ur Specific Nixon > 1.030 H Urine Protein Negative Urine Ketones 15 H Urine Blood Negative Urine Nitrite Negative Urine Bilirubin Negative Urine Urobilinogen 0.2 Ur Leukocyte Esterase Negative Urine Glucose Negative Urine Opiates Screen Negative Urine Methadone Screen Negative Ur Barbiturates Screen Negative Ur Tricyclics Screen Negative Ur Amphetamines Screen Negative U Benzodiazepines Scrn Negative Urine Cocaine Screen Negative Ur THC Screen Positive A Ethyl Alcohol Last Vital Signs Temp 36.7 C 06/02/21 18:53 Pulse 71 06/02/21 21:31 Resp 16 06/02/21 21:50 BP 131/69 06/02/21 21:31 Pulse Ox 96 06/02/21 21:10
[2021-06-02 23:49] LABS: Source Nasal/Nares
[2021-06-03] VITALS (9 sets, daily range): BP systolic 128–158; BP diastolic 52–70; PULSE 48–60; RESP 16–18; TEMP 36.3–36.9; O2SAT 94–97
[2021-06-03 00:55] LABS: COVID-19 PCR Negative (Negative)
[2021-06-03] MEDS: Magnesium Oxide 400 MG TAB PO ×3 (01:15→19:48)
[2021-06-03 06:19] LABS: Abs Immature Grans 0.04 10^3/uL (0.0-0.06); Absolute Basophil Count 0.08 10^3/uL (0.0-0.2); Absolute Eosinophil Count 0.17 10^3/uL (0.0-0.7); Absolute Lymphocyte Count 2.06 10^3/uL (1.2-3.4); Absolute Neutrophil Count 6.61 10^3/uL (1.2-6.7); Basophils % 0.8; Eosinophils % 1.7; HCT 37.4 % (40.0-50.0); HGB 12.3 g/dL (13.5-17.5); Immature Grans % 0.4; Lymphocytes % 20.7; MCH 30.4 pg (27.0-33.0); MCHC 32.9 % (32.0-36.0); MCV 92.6 fL (80-95); MPV 9.9 fL (8.0-11.0); Neutrophils % 66.4; Platelet Count 217 10^3/uL (130-400); RBC 4.04 10^6/uL (4.36-5.78); RDW 15.4 % (11.8-14.1); RDW-SD 52.8 fL; WBC 9.96 10^3/uL (4.4-10.8)
[2021-06-03 06:35] LABS: Magnesium 1.9 mg/dL (1.8-2.4)
[2021-06-03 06:41] LABS: ALT 38 U/L (16-63); AST 23 U/L (15-37); Alkaline Phosphatase 67 U/L (46-116); Anion Gap 6.7 mmol/L (3-11); BUN 15 mg/dL (7-18); Bilirubin, Total 0.6 mg/dL (0.2-1.0); CO2 25.3 mmol/L (21.0-32.0); CREATININE 0.7 mg/dL (0.70-1.30); Calcium 8.4 mg/dL (8.5-10.1); Chloride 105 mmol/L (98-107); Glucose 105 mg/dL (74-106); Potassium 3.3 mmol/L (3.5-5.1); Sodium 137 mmol/L (136-145); Total Protein 5.8 g/dL (6.4-8.2)
--- NOTE | 2021-06-03 07:00 | DI.MRI_ITS ---
Exam(s) MR BRAIN WO EXAM: MR BRAIN WO CLINICAL HISTORY: Right CVA. TECHNIQUE: Multiplanar multisequence MRI of the brain was performed. CONTRAST MATERIAL: noncontrast. COMPARISON: CT CT BRAIN NECK CTA from 06/02/2021 FINDINGS: Exam mildly limited by patient motion. VENTRICLES AND EXTRA AXIAL SPACES: Mild ventricular asymmetry due to mild edema related to right skyler ventricular infarct. HEMORRHAGE: T1 weighted images show high signal peripherally in the gyri of the right posterior parie geo lobe. Susceptibility weighted images show a minimal amount of increased susceptibility artifact consistent with mild amount of hemorrhage. CEREBRAL PARENCHYMA: Areas of restricted diffusion seen in the right basal ganglia extending along th e right lateral ventricle, worst at the region of the right parietal lobe as well as anterior aspect of the right temporal lobe. Mild underlying atrophy and white matter changes of small vessel disease . No space-occupying lesion identified. MIDLINE SHIFT: None. BRAINSTEM/CEREBELLUM: Normal. CALVARIUM: Normal. ENHANCEMENT: No suspicious enhancement identified. VISUALIZED PARANASAL SINUSES/MASTOIDS: Clear. OTHER FINDINGS: Decreased flow void distal right middle cerebral artery. Partially empty sella. IMPRESSION: Subacute infarct right posterior parietal lobe with a mild amount of hemorrhagic transformation. Inf arcts also seen in the anterior right temporal lobe and right basal ganglia. DATA REPOSITORY:
--- NOTE | 2021-06-03 07:43 | DI.US_ITS ---
APPROVED REPORT EXAM: Comprehensive 2D, Doppler, and color-flow Echocardiogram Patient Location: In-Patient Room/Bed: [facility] Property Officer: Micaela Woods RDCS (AE) Indications: Right CVA Echo Enhancing Agent Indication: Rule out Shunt Agent(s) / Amount(s) Used: Agitated Saline 24.0 cc Comments: Contrast study was performed with 3 IV injections of 10ccs of agitated normal saline, at [facility], with cough and post valsalva maneuver. Negative contrast study for shunt flow. Other Information Study Quality: Fair. Technically limited study due to body habitus, inability to position patient. Conclusion Normal left ventricular wall thickness and chamber size. Estimated ejection fraction is 55 to 60%. Wall motion is normal Right ventricle appears grossly normal in size and function Both atria are normal in size There is no structural or hemodynamically significant valvular disease No intracardiac shunting is identified with agitated saline injection Wall motion Left Ventricle The left ventricle is normal size. The left ventricular systolic function is normal. The left ventric ular ejection fraction is within the normal range. There is normal left ventricular wall thickness. T here is normal LV segmental wall motion. There is no ventricular septal defect visualized. LVEF is 58 %. Right Ventricle Right ventricle is grossly normal in size. Right ventricular systolic function is grossly normal. Atria The left atrium size is normal. The right atrium size is normal. The interatrial septum is intact wit h no evidence for an atrial septal defect. Saline bubble contrast intravenous injection does not demo nstrate PFO. Aortic Valve The aortic valve is normal in structure. Aortic valve is trileaflet. There is no aortic valvular sten osis. No aortic regurgitation is present. Mitral Valve The mitral valve is normal in structure. No evidence of mitral valve stenosis. Mild mitral regurgitat ion. Tricuspid Valve The tricuspid valve is normal in structure. There is no tricuspid valve stenosis. Trace tricuspid reg urgitation. Unable to assess PA pressure. Pulmonic Valve Pulmonic valve is not well visualized. There is no pulmonic valvular stenosis. There is no pulmonic v alvular regurgitation. Great Vessels The aortic root is normal in size. Ascending aorta is not well visualized. Aortic arch is not well vi sualized. IVC is normal in size and collapses >50% with inspiration. Pericardium Technically limited subcostal views. 2D Dimensions IVSD d PLAX 0.99 cm M: 0.6-1.2 LV Vol A2C d MOD 80.8 mL LVPW d PLAX 0.97 cm M: 0.6 - 1.2 LV Vol A4C d MOD 93.7 mL LVID d PLAX 4.62 cm M: 4.2 - 5.8 LA Area A4C s MOD 17.11 cm2 LVDs 3.20 cm M: 2.5 - 4.0 LA Area A2C s MOD 16.28 cm2 Ao Root d 2.99 cm M: 3.1 - 3.7 LV EF A4C MOD 58.6 % RA Area A4C 14.95 cm2 LV EF A2C MOD 57.6 % Ao Asc Diam d 3.48 cm M: 2.6 - 3.4 LV EF Biplane MOD 58.2 % LV EF Teichholz 57.0 % SV 51.44 mL LVEF (Falcon's) 58.20 % M: 52 - 72 LV Volume 88.38 mL M: 62 - 150 LV Volume Index 39.81 mL/m2 M: 34 - 74 LV Vol Biplane MOD 88.4 mL FS 29.80 % M-Mode TAPSE 1.58 cm (M/F) >1.7 LV Diastology MV E' medial 0.069 (>0.07 m/s) E/A Ratio 1.5 LV E/e MED 11.90 (<14) MV E Vmax 0.83 (0.4-1.3 m/s) MV E' lateral 0.060 (>0.1 m/s) MV A Vmax 0.55 (0.4-1.3 m/s) LV E/e LAT 13.70 (<14) MV E/A Ratio 1.46 MV E/E' medial 11.93 MV E/E' lateral 13.70 Aortic Valve LVOT Area 3.53 cm2 AoV Area Vmax 3.14 cm2 LVOT Vmax 1.03 m/s ALIREZA Mean Terry. 3.19 cm2 LVOT Mean Terry. 0.70 m/s LVOT Peak Grad 4.3 mmHg LVOT Mean Grad 2.2 mmHg LVOT VTI 0.231 m LVOT Diam s 2.10 cm AoV Vmax 1.16 m/s Velocity Ratio 0.88 AoV Mean Terry. 0.77 m/s AoV Peak Grad 5.4 mmHg LVOT SV 81.59 mL AoV Mean Grad 2.8 mmHg AoV VTI 0.268 m AoV Area VTI 3.04 cm2 Mitral Valve MV DT 255 (160-240 msec) MV PHT 74 msec MV Area PHT 2.98 cm2 MV VTI 0.335 m MV Area VTI 2.44 (4.0-6.0 cm2) Pulmonary Valve PV Vmax 0.93 (0.5-1.5 m/s) RVOT Peak Gr. 2.04 mmHg PV Peak Grad 3.5 mmHg RVOT Mean Gr. 1.10 mmHg PV Mean Grad 2.0 mmHg RVOT VTI 0.179 m PV VTI 0.242 m RVOT Vmax 0.71 m/s
[2021-06-03] MEDS: Clopidogrel 75 MG TAB PO (07:55)
[2021-06-03] MEDS: Aspirin 325 MG TAB PO (07:56)
[2021-06-03] MEDS: Multivitamin TAB 1 TAB PO (07:56)
[2021-06-03] MEDS: Atorvastatin 40 MG TAB 80 MG PO (07:57)
[2021-06-03] MEDS: Potassium Chloride 20 MEQ TABCR PO (09:31)
[2021-06-03] MEDS: Thiamine 100 MG TAB PO (09:31)
[2021-06-03] MEDS: MAGNESIUM SULFATE 2 GM/50 ML BAG IVPB (09:31)
[2021-06-03] MEDS: Enoxaparin 40 MG/0.4 ML SYR SC (09:31)
--- NOTE | 2021-06-03 09:50 | IN_ITS ---
Date of service: 06/03/21 Time of Service: 09:50 PT Notes Visit Reasons: Subacute Right CVA Physical Therapy Inpatient Initial Evaluation Date: 06/03/2021 Referring Doctor: Edvin Castañeda MD PT Orders: PT CONSULT: Safety consult for D/C Precautions: Fall. Standard. Activity as tolerated. Patient Profile/Admitting Diagnosis: Anoop is a 75-year-old male who presented to the ED on 06/02/2021 due to weakness on the left hand and the left leg along with a left facial droop. Patient was diagnosed with a right sided cerebral hemisphere cerebrovascular accident, essential hypertension, and type 2 diabetes mellitus. PMHX: All Active Problems?(Updated 06/02/21 @ 22:55 by Edvin Castañeda) Right sided cerebral hemisphere cerebrovascular accident (Acute) Ischemic stroke (Acute) Weakness (Acute) Facial droop (Acute) Groin pain, chronic, right (Acute) Incidental lung nodule, > 3mm and < 8mm (Acute) 10/2020 CT 6-7mm KANIKA lobe; repeat 6 months 11/2020- pt refuses f/u CTSkin lesion (Acute) 11/2020- [place] [facility] benignDiabetes type 2, controlled (Acute) Essential hypertension (Acute) Status post coronary artery stent placement (Acute) 10/2018 (most recent) now has a total of 5 ([facility]NSTEMI (non-ST elevated myocardial infarction) (Acute) most recent 10[facility] [place]) Gastroesophageal reflux disease (Acute 01/28/13) diet controlled CAD (coronary artery disease) (Chronic) Hyperlipidemia (Chronic) Obesity (Chronic) Erectile dysfunction (Chronic) Seasonal allergies (Chronic) Medical History? Closed fracture of radius Depression resolved when taken off beta blockerHistory of tobacco use quit smoking age 48Myocardial infarct, old a.? 1995Perforation of tympanic membrane Pilonidal cyst 2 surgeries in the past- stable Surgical History? Cholecystectomy (~09/2013) History of Surgical Procedure a. Tonsillectomy. b. Pilonidal cysts removed. c. Stenting LAD 2001 d.? vasectomyPROCEDURES EXCISION OF PILONID CYST INSERT 1 VASCULAR STENT, 12/14;? HEART Status post cholecystectomy Status post tonsillectomy Status post vasectomy Tonsillectomy Vasectomy Social History/Home Situation: Lives alone in a private home with 4 steps to enter with rails on both sides. He has another flight of steps to the second part of the house where his bedroom is. Independent with all aspects of ADLs prior to admission. 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 Equipment Owned/DME: [facility] Subjective: Agreeable to PT consult. Reports weakness left upper extremity and lower extremity. While sitting at edge of bed denied headache, chest pain, and dizziness. However when he was transferred to the bedside commode began to report increasing dizziness. Nurse King retook vital signs which were all within normal limits. Agreeable to [facility] prior to discharge to home. Objective: General Observation: IV in the left UE. Left UE flaccid. Supine in bed. Nurse present throughout mobility assessment. Facial asymmetry noted. Mental Status: Alert and oriented as to person, place, time, and purpose. Able to pay attention, focus, and respond appropriately. Pain: Denies Vital Signs: Within normal limits as taken by nurse King after bed to bedside commode transfer ROM: Right Upper Extremity: Shoulder Flexion allows 100 degrees. Shoulder abduction allows 90 degrees. Elbow flexion WFL. Wrist flexion WFL. Functional opening and closing of hand WFL. Left Upper Extremity: Shoulder Flexion about 30 degrees. Shoulder abduction allows about 30 degrees. Elbow flexion none. Wrist flexion none. Functional opening and closing of hand unable. Right Lower Extremity: Hip flexion WFL. Hip abduction WFL. Knee flexion WFL. Ankle dorsiflexion WFL. Ankle plantarflexion WFL. Left Lower Extremity: Hip flexion lacks about 10 degrees from 90 degrees while seated at bed. Hip abduction allows 10 degrees. Knee flexion -45 to 90 degrees. Ankle dorsiflexion to neutral only. Ankle plantarflexion WFL. Strength: Right Upper Extremity: Shoulder flexors 3-/5. Shoulder abductors 3-/5. Elbow flexors 4-/5. Elbow extensors 4-/5. Mechanics Supervisor strong. Left Upper Extremity: Shoulder flexors 2-/5. Shoulder abductors 2-/5. Elbow flexors 0/5. Elbow extensors 0/5. Mechanics Supervisor absent. Right Lower Extremity: Hip flexors 4-/5. Hip abductors 4-/5. Knee flexors 4-/5. Knee extensors 4-/5. Ankle dorsiflexors 4-/5. Ankle plantarflexors 4-/5. Left Lower Extremity: Hip flexors 3-/5. Hip abductors 3-/5. Knee flexors 3-/5. Knee extensors 3-/5. Ankle dorsiflexors 3-/5. Ankle plantarflexors 3-/5. Bed Mobility/Transfers: Rolling minimal assist Supine to sit minimal assist Sit to supine minimal assist Sit to stand minimal assist of 2 Stand to sit minimal assist of 2 Bed to bedside commode minimal assist of 2 Bedside commode to bedside chair minimal assist of 2 Gait: 6 steps + 10 steps using FWW. L grasp absent and needed full assist of PT to prevent L hand from sliding off the handle. Required minimla assist and standby assist of Nurse Christine for safety and IV pole management. Increased trunk lean to L. Decreased step heigh/length on L. Balance: Static Sitting: Fair Dynamic Sitting: Fair Static Standing: Poor Dynamic Standing: Poor Special Tests: Mobility Limitations Standardized Measure [facility] AM-PAC 6 clicks Basic Mobility Inpatient Short Form: Raw Score: 11 CMS Score: 73% deficit Informed Consent/Education: Patient was instructed in purpose of PT consult and plan of care. Agreeable to proceed with established PT POC to achieve personal goals. Assessment: L UE/LE weakness from right MCA thrombotic stroke, left UE more affected than left LE. Functional mobility decline, dependent with transfers and ambulation tasks, impaired balance, increased risk for falls due to. Patient presents with clinical signs and symptoms consistent with current/admitting diagnoses that have resulted to mobility limitations, gait instability, generalized weakness, and overall ADL decline as demonstrated by the following impairment level findings: 1. Decreased strength to L LUE /LE major muscle groups 2. Impaired sitting/standing balance 3. Impaired activity tolerance 4. Limitation of joint range of motion in L L UE/LE 5. Fatigue Impairments are contributing to the following functional limitations: 1. Decline in bed mobility skills 2. Decline in transfer skills 3. Difficulty with ambulation without assistive device and physical assistance 4. Increased completion time for mobility ADL performance 5. Increased risk for falls 6. Difficulty with managing steps alone safely Patient is assessed as a 98976 moderate complexity based on the following: History: 75-year-old malewith past medical history as indicated above Examination: Demonstrable impairment in strength, balance, and mobility level with underlying impairments and functional limitations as exhibited above as well as deficit score of 73% utilizing the [facility] Mobility Inpatient Short Form Presentation: Evolving Decision Makin moderate complexity Goals: Goals X1 week 1. Supine-Sit independent 2. Sit-Supine independent 3. Sit-Stand independent 4. Stand-Sit independent with platform FWW 5. Bed-Chair independent with platform FWW 6. Chair-Bed independent with platform FWW 7. Independent gait on level surface with use of with platform FWW for at least 100 feet without report of pain nor dyspnea 8. Independent stair negotiation while holding onto B rails for at least 15 steps without report of pain nor dyspnea Plan of Care/Treatment Plan: 1-2x/day, 7 days/week x 1 week. Plan of care has been reviewed with the LIVING SPECIALIST providing the service under Physical Therapy direction. Initiate Physical Therapy intervention for pain management as needed, strengthening, bed mobility, transfers, gait, stairs, balance training, and use of assistive device. DISCHARGE RECOMMENDATIONS: [] Home with no services [] [] Home with services [specify] [] Home with outpatient PT [] [X] SNF for continued rehabilitation. Patient will benefit from [facility] facility [facility] for continued skilled physical therapy services in order to progress mobility level, strength, and balance in preparation for a safe discharge to home. [] [facility] [] [] SNF versus LTC based on ability to participate and progress [] TREATMENT CODE/TIME: 9716 2 x 20 minutes, 44328 x 14 minutes beginning at 9:50 AM. Thank you for the opportunity to participate in the care of this patient. Tory Crisostomo PT, DPT, CLT [facility] [place], [place] Thank you for the opportunity to participate in the care of this patient. Tory Crisostomo PT, DPT, CLT [facility] [place], [place]
--- NOTE | 2021-06-03 11:08 | SP_ITS ---
Date of service: 06/03/21 Time of Service: 11:08 Subjective Referred by: Edvin Castañeda given L facial droop, R MCA CVA for cognitive- communication and swallowing evaluation. HPI: Anoop is a 75y/o M who noticed left sided weakness about 4 days ago. He was brought to the ER when friends noticed his functioning appeared worsened and he noticed his symptoms had worsened still a few hours before he was brought to the ER. Upon admit, imaging was performend and he was found with prior and acute changes to R MCA (occlusions/reduced flow in M2-5). MRI also performed this date indicating R parietal infarct with hemorrhagic transformation as well as R temporal and R basal ganglia infarcts. Medical history also significant for GERD and depression. Findings: Structure/Function evaluation: Indicates decreased L side cranial nerve motor innervation of for facial and lingual movements at a minimum, consistent with disrupted innervation originating at site of R MCA CVA. Speech: Mild dysarthria vs baseline rushed speech. Patient was provided with speech strategies (Think big, over-exaggerate/over-enunciate) to address rate, volume, and enunciation. Swallowing: Suspect mild-moderate oral>pharyngeal dysphagia due to L sided deficits resulting from CVA. L sided pocketing, mild/infrequent s/sx aspiration with thin liquids appearing well-mitigated with strategies (see recommendations below) . Diet modification not needed at this time provided he can adhere to recommendations. Cognitive-Communication: Mild cognitive-communication impairments. Noting L inattention. Environmental modifications will be appropriate. Noting primary difficulties in immediate memory (likely attention/working memory). Suspect performance today also impacted by patient's apparent level of fatigue and may be under-representation of functional status. Overall, patient appears to be at a safe functional level for independence with iADL's, but would benefit from provision of accommodations as detailed in recommendations below. If cognitive-communication status or swallowing status do not resolve prior to discharge he may benefit from outpatient WELL LOGGING OPERATOR MUD ANALYSIS referral. If he is placed in a rehab facility, he would benefit from [employer] LOGGING OPERATOR [employer]UD ANALYSIS re-assessment upon admit. Consider MBSS if patient remains inpatient next week, or as outpatient to r/o aspiration. Prognosis: Good given patient's level of insight, prior level of function, mild severity. Recommendations: Further inpatient [employer] LOGGING OPERATOR [facility]UD ANALYSIS services are warranted. Discharge: Patient likely able to function safely & independently at home from a cognitive standpoint, but may still benefit from WELL LOGGING OPERATOR MUD ANALYSIS services at d/c location p ending progress in cognitive-communication, swallow, speech. Swallowing: Diet: Reg/Thin (no changes) Meds: One at a time, place on R side of mouth. Liquids or puree OK. Safe swallow strategies: small bites&sips, L finger/lingual sweep to clear residue, alternate bites & sips to promote oral clearance LEVEL OF ASSIST: Nursing to facilitate oral care BID and before/after PO intake, set-up assist with tray and intermittent supervision during meals. Risk management strategies: Oral hygiene BID and before/after PO intake using friction with toothbrush on all oral structures as tolerated HOB upright as tolerated; upright for all PO intake. Encourage physical mobility as tolerated. Cognitive Communication Recommendations: Place call button, lunch tray items, etc on RIGHT side of patient to promote attention/use. Provide information and instructions one step at a time. Provide written reminders/visual aids for important information. Plan: WE[employer] LOGGING OPERATOR [facility]UD ANALYSIS to continue to follow while on unit and provide updated recommendations prn. Subjective: Patient was received in his hospital room, reclined at bedside and somnolent. Appearing fatigued but rousable to participate in initial interview and examination. Session was interrupted prior to initiation of cognitive- communication assessment when the patient was taken down early for MRI by RN. WELL LOGGING OPERATOR MUD ANALYSIS re-contacted patient after MRI to continue with cog-comm and PO trials portions of this evaluation. Patient reported symptoms: Memory/cognitive changes: He has been misplacing things more the past few days. Denies difficulty solving problems or completing complex tasks. Language Comprehension: denies increased difficulty understanding others. Language expression: denies word-finding difficulties Speech: endorses slurred speech Swallowing: denies changes to chewing or swallowing. denies increased coughing when eating or drinking. denies sensation of pharyngeal residue or food going down the wrong tube Current diet (prior to swallow evaluation): 7: Regular solids / 0: Thin liquids Social history: Patient shares that his daughter has relocated to [place] from [place] and is staying with him now until she finds her own place. Prior to this he has lived alone. 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 marijuana Communication Needs:? Hard of Hearing and Corrective Lenses All Active Problems?(Updated 06/02/21 @ 22:55 by Edvin Castañeda) Right sided cerebral hemisphere cerebrovascular accident (Acute) Ischemic stroke (Acute) Weakness (Acute) Facial droop (Acute) Groin pain, chronic, right (Acute) Incidental lung nodule, > 3mm and < 8mm (Acute) 10/2020 CT 6-7mm KANIKA lobe; repeat 6 months 11/2020- pt refuses f/u CTSkin lesion (Acute) 11/2020- [place] [facility] benignDiabetes type 2, controlled (Acute) Essential hypertension (Acute) Status post coronary artery stent placement (Acute) 10/2018 (most recent) now has a total of 5 ([facility]NSTEMI (non-ST elevated myocardial infarction) (Acute) [facility]) Gastroesophageal reflux disease (Acute 01/28/13) diet controlledCAD (coronary artery disease) (Chronic) Hyperlipidemia (Chronic) Obesity (Chronic) Erectile dysfunction (Chronic) Seasonal allergies (Chronic) Medical History? Closed fracture of radius Depression resolved when taken off beta blockerHistory of tobacco use quit smoking age 48Myocardial infarct, old a.? 1995Perforation of tympanic membrane Pilonidal cyst 2 surgeries in the past- stable Surgical History? Cholecystectomy (~09/2013) History of Surgical Procedure a. Tonsillectomy. b. Pilonidal cysts removed. c. Stenting LAD 2001 d.? vasectomyPROCEDURES EXCISION OF PILONID CYST INSERT 1 VASCULAR STENT, 12/14;? HEART Status post cholecystectomy Status post tonsillectomy Status post vasectomy Tonsillectomy Vasectomy Recent imaging: Exam: CT Head Without Contrast Exam date and time: 06/02/2021 7:13 PM IMPRESSION: 1. Concern for cytotoxic edema involving right basal ganglia and parietotemporal watershed. Mild temporal lobe involvement on the right not excludable. 2. Senescent changes noted. Exam: CT Angiography Head With Contrast, Arteriography Exam date and time: 06/02/2021 8:09 PM IMPRESSION: Findings of concern for acute thrombus in the right MCA M2 segment with markedly decreased flow and near total occlusion in the M3, M4 and probable M 5 segments. Exam: CT Angiography Neck With Contrast Exam date and time: 06/02/2021 8:09 PM IMPRESSION: No evidence for hemodynamically significant stenosis or occlusion. Exam: MRI WO CONTRAST Exam date: 06/03/2021 IMPRESSION Subacute infarct right posterior parietal lobe with a mild amount of hemorrhagic transformation.? Infarcts also seen in the anterior right temporal lobe and right basal ganglia. Objective Objective Oral Motor & Peripheral Exam: ? CN V - Trigeminal ? Sensation WFL ? Jaw Movement WFL ? CN VII ? Labial/Facial ? Flattened L naso-labial fold ? Impaired ROM: L ? Impaired strength: L weakness against retraction ? Impaired tongue sensation ? CN IX ? Palate - difficulty visualizing. No nasal emissions ? CN X ? Laryngeal ? Vocal quality: Mild breathy ?Volitional cough WFL ? CN XII ? Lingual ? Impaired symmetry: L deviation (shaina cates L weakness) ? Impaired ROM to R (indicates L weakness) ? Impaired strength: mild to L lateralization resistance ? Volitional Swallow ? Suspect WFL laryngeal elevation ? Suspect delayed onset of swallow ? Swallow/PO Trials: 0 Thin liquid X8 sips, 7 Regular solid X5, 4 Puree (mashed po shell) x4 Oral phase: L sided pocketing/residue Pharyngeal phase: Cough x1 with liquids, eliminated with Behaviors: Large sip size Strategies trialed: Small sip size, L finger & lingual sweep, alternate bites/sips Cognitive-Communication: Orientation: Day+ Month+ Year+ Day of weekX Town+ State+ Hosp+ Situation+ Self+ Memory: Demonstrates accurate and detailed recall of medical information recently provided to him (e.g., MRI results, etc) Immediate: +6/10 Delayed/Recent: +9/10 Visual processing: Visual scanning: L inattention neglect noted when attempting to locate items on lunch tray, but not on letter/symbol scanning tasks. Writing: occasional alignment issues (long-term through a line, patient abruptly moves line of text up 1/2 inch indicating possible inattention to L side of page) Insight/anosagnosia: Appears with good insight into deficits. Clock drawing: Accurate time shown, spacing relatively accurate, all numbers present & accurate, short/long hand clearly indicated. Generative naming (patient is given a category and furnishes examples/items in that category: across 4 trials, able to produce minimum 10, maximum 17 items in semantic categories. Category naming (patient is given list of nouns and asked to name the category they belong to): +6/6 Sequential commands: +10/10 (commands range from 2-4 action/item components) ? Speech: ~90% intelligible. Noting fast rate, monotone, and low speaking volume. Patient endorses being a mumbler at baseline. Plan Short Term Goals: 1. Patient & caregivers will verbalize/demonstrate understanding of impact of CVA on swallow function, rationale for aspiration precautions and recommended swallow management strategies, including oral care, in order to decrease patient's risk of aspiration-related pulmonary complications. 2. Patient & caregivers will verbalize/demonstrate understanding of impact of CVA on cognitive, communication, speech function, role of WELL LOGGING OPERATOR MUD ANALYSIS, and recommended strategies given patient's current level of function. 3. Patient will safely and efficiently tolerate safest/least restrictive diet with use of swallow strategies and risk management strategies given min cues. 4. Patient will utilize speech strategies in order to increase intelligibility and clarity of communication in discourse/conversation level speech given min cues from clinician. Total time spent: 75 min across am&pm sessions. CPT/treat code: 87065 [id number] Coding Diagnoses Dysphagia as late effect of cerebrovascular accident (CVA) I69.391 Dysarthria as late effect of cerebrovascular accident (CVA) I69.322 Cognitive deficit as late effect of cerebrovascular accident (CVA) I69.319 Assessment and Plan Assessment and plan (1) Dysphagia as late effect of cerebrovascular accident (CVA): Status: Acute (2) Dysarthria as late effect of cerebrovascular accident (CVA): Status: Acute (3) Cognitive deficit as late effect of cerebrovascular accident (CVA): Status: Acute
--- NOTE | 2021-06-03 11:10 | PDOC.CMIN ---
- If Service Date Differs Date of service: 06/03/21 Time of Service: 11:10 Care Management Initial Assess PAST MEDICAL HISTORY/PAST SURGICAL HISTORY:: All Active Problems (Updated 06/02/21 @ 22:55 by Edvin Castañeda). Right sided cerebral hemisphere cerebrovascular accident (Acute). Ischemic stroke (Acute). Weakness (Acute). Facial droop (Acute). Groin pain, chronic, right (Acute). Incidental lung nodule, > 3mm and < 8mm (Acute). 10/2020 CT 6-7mm KANIKA lobe; repeat 6 months. 11/2020- pt refuses f/u CT. Skin lesion (Acute). 11/2020- removed [facility] benign. Diabetes type 2, controlled (Acute). Essential hypertension (Acute). Status post coronary artery stent placement (Acute). 10/2018 (most recent) now has a total of 5 ([facility]). NSTEMI (non-ST elevated myocardial infarction) (Acute). most recent 10/2018 [facility]. Diarrhea (Acute). Gastroesophageal reflux disease (Acute 01/28/13). diet controlled. CAD (coronary artery disease) (Chronic). Hyperlipidemia (Chronic). Obesity (Chronic). Erectile dysfunction (Chronic). Seasonal allergies (Chronic). Medical History . Closed fracture of radius. Depression. resolved when taken off beta neftali. History of tobacco use. quit smoking age 48. Myocardial infarct, old. a. 1994. Perforation of tympanic membrane. Pilonidal cyst. 2 surgeries in the past- stable. Surgical History . Cholecystectomy (~09/2013). History of Surgical Procedure. a. Tonsillectomy. b. Pilonidal cysts removed. c. Stenting LAD 2001. d. vasectomy. PROCEDURES. EXCISION OF PILONID CYST. INSERT 1 VASCULAR STENT, 12/14; HEART. Status post cholecystectomy. Status post tonsillectomy. Status post vasectomy. Tonsillectomy. Vasectomy PREVIOUS FUNCTIONAL STATUS/SOCIAL/FAMILY SUPPORTS:: Anoop lives in [facility]. His daughter is temporarily living with him while she buys a house. Anoop has a girlfriend who stays with him frequently. 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 He drives and is independent at baseline. He has 2 adult children, Meet and Ingrid that are supportive. CURRENT FUNCTIONAL STATUS:: Anoop was sitting up in bed when CM met with him. He was talking with his son and daughter via his cell phone. He was alert, oriented and easy to engage in conversation. 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 He is open to SNF for short term rehab if needed. ADVANCE DIRECTIVES:: [facility] is Kel Arrieta and/or Ingrid Arrieta. Has patient been provided with info about the portal/API?: Yes Did the patient sign up for the portal?: Yes (Prior to admission) CODE STATUS:: Full Code INSURANCE COVERAGE / FINANCIAL ISSUES:: . Medicare. [employer] [facility] CURRENT HOME/COMMUNITY SERVICES/EQUIPMENT:: [facility]. Uses a [facility] PRN PRIMARY CARE PHYSICIAN:: Renae Ferrer POTENTIAL DISCHARGE NEEDS:: SNF for rehab, follow up appointments PATIENT/FAMILY EDUCATION NEEDS:: Review discharge instructions, limitations, medications and plan to follow up with community providers. ask me three. TRANSPORTATION:: Dependent on disposition. PLAN:: Anticipate, Anoop will discharge to SNF for continued rehabilitation vs home with [facility] RN/PT/OT/[facility], when medically ready. [facility]. Transportation to be determined by disposition and patients mobility level at time of discharge.
[2021-06-03] MEDS: POTASSIUM CHLORIDE 20 MEQ/100 ML BAG 50 MEQ IVPB ×2 (12:03→14:22)
--- NOTE | 2021-06-03 14:16 | W.PM.PROGNOT ---
Date of Service Date of service: 06/03/21 Time of Service: 12:00 Assessment and Plan Assessment and plan (1) Right sided cerebral hemisphere cerebrovascular accident: Start date: 06/03/21 Start time: 12:00 Status: Acute Assessment and plan: Patient sx began 5 days ago however presents yesterday. MRI with : Subacute infarct right posterior parietal lobe with a mild amount of hemorrhagic transformation.? Infarcts also seen in the anterior right temporal lobe and right basal ganglia. All anticoagulants held. Teds/scds ordered. Allow for permissive HTN. Spoke with Dr. Momin from [facility] states the hemorrhage is small enough to keep on dual antiplatelet therapy will use along with heparin subcu BID, Repeat CT in 48H to make sure that bleeding is not worse. facial droop, left sided babinski positive, left hand with weakness inability to move fingers and lift up to elbow PT/OT consulted Continue telemetry Echo with no PFO (2) Weakness: Start date: 06/03/21 Start time: 12:00 Status: Acute Assessment and plan: as above (3) Facial droop: Start date: 06/03/21 Start time: 12:00 Status: Acute Assessment and plan: as above (4) CAD (coronary artery disease): Start date: 06/03/21 Start time: 12:00 Status: Chronic Assessment and plan: holding medications at this time due to MRI results and allowing for permissive HTN awaiting for [facility] to call back (5) Hyperlipidemia: Start date: 06/03/21 Start time: 12:00 Status: Chronic Assessment and plan: atorvastatin 80 mg (6) Essential hypertension: Start date: 06/03/21 Start time: 12:00 Status: Chronic Assessment and plan: as above (7) Alcohol abuse: Start date: 06/03/21 Start time: 12:00 Status: Chronic Assessment and plan: came in to the ED with ethyl level of 47.6 (8) DVT prophylaxis: Start date: 06/03/21 Start time: 12:00 Status: Acute Assessment and plan: subcu heparin (9) Discharge planning issues: Start date: 06/03/21 Start time: 12:00 Status: Acute Assessment and plan: Will likely need rehab on discharge discussed with Dr. Parra Subjective Subjective Patient reports: other Interval history since last seen: Patient sitting up in chair. Left facial droop, unable to lift left arm from elbow down. Unable to wiggle fingers. Positive babinski to left foot. He is able to move left leg weaker than right. MRI reveals: Subacute infarct right posterior parietal lobe with a mild amount of hemorrhagic transformation.? Infarcts also seen in the anterior right temporal lobe and right basal ganglia. Dr. Momin called back recommended dual platelet therapy. Will also give subcu heparin Exam Const General: cooperative, comfortable and no acute distress Nutritional Appearance: overweight HENMT Head: normal to inspection, normocephalic and atraumatic Face and sinus: face asymmetric and other (left sided facial droop) Mouth: moist mucous membranes Eyes Eyelids: eyelids normal Sclera: sclerae normal Pupils: PERRL EOM: EOM intact bilaterally Neck Neck: normal visual inspection, full ROM and no lymphadenopathy Chest Chest: normal inspection of the chest Resp Effort & Inspection: normal respiratory effort Auscultation: clear to auscultation bilaterally Cardio Jugular venous pressure: no JVD Rate: bradycardic Rhythm: regular rhythm Heart Sounds: S1 normal and S2 normal GI Inspection: obesity Palpation: soft Percussion: normal to percussion Auscultation: normal bowel sounds Skin General skin exam: no rashes or lesions noted Neuro General: patient alert, patient awake, patient oriented x3, focal motor deficits present, CN's II-XI not intact bilaterally and abnormal sensation to monofilament Cognition: normal cognition Coordination: [id number] test abnormal, [id number] test normal and abnormal rapid alternating movement LE Other: positive babinski to left foot. left hand unable to wiggle fingers or lift left hand. Can lift elbow and shoulder. only Left lower extremity he is able to move slightly weaker then left. Extrem General: abnormal ROM Left upper extremity: No abnormal to inspection, ROM limited, wrist not examined and hand not examined Objective Last Vital Signs Temp 36.8 C 06/03/21 10:24 Pulse 53 L 06/03/21 10:24 Resp 18 06/03/21 10:24 BP 145/65 H 06/03/21 10:24 Pulse Ox 94 06/03/21 10:24 Laboratory Results - last 24 hr 06/02/21 06/02/21 06/02/21 06:00 18:58 19:05 WBC RBC Hgb Hct MCV MCH MCHC RDW Plt Count MPV Immature Gran % Neutrophils % Lymphocytes % Monocytes % Eosinophils % Basophils % Nucleated RBC % Absolute Neutrophils Absolute Lymphocytes Absolute Monocytes Absolute Eosinophils Absolute Basophils PT 10.4 INR 1.0 APTT 24.2 Sodium 139 Potassium 3.5 Chloride 103 Carbon Dioxide 25.5 Anion Gap 10.5 BUN 18 Creatinine 0.9 Estimated GFR/1.73 m2 >= 60.00 Glucose 81 Calcium 8.8 Magnesium 1.9 1.7 L Total Bilirubin 0.6 AST 31 ALT 46 Alkaline Phosphatase 67 Troponin I < 50 Total Protein 6.4 Albumin 3.2 L TSH 2.60 Urine Color Urine Clarity Urine pH Ur Specific Henderson Urine Protein Urine Ketones Urine Blood Urine Nitrite Urine Bilirubin Urine Urobilinogen Ur Leukocyte Esterase Urine Glucose Urine Opiates Screen Urine Methadone Screen Ur Barbiturates Screen Ur Tricyclics Screen Ur Amphetamines Screen U Benzodiazepines Scrn Urine Cocaine Screen Ur THC Screen Ethyl Alcohol 47.6 H COVID-19 Source SARS-CoV-2 (PCR) 06/02/21 06/02/21 06/02/21 19:05 20:27 20:27 WBC 10.69 RBC 3.79 L Hgb 11.5 L Hct 36.3 L MCV 95.8 H MCH 30.3 MCHC 31.7 L RDW 15.6 H Plt Count 233 MPV 9.8 Immature Gran % 0.4 Neutrophils % 69.7 Lymphocytes % 21.0 Monocytes % 7.5 Eosinophils % 0.7 Basophils % 0.7 Nucleated RBC % 0.0 Absolute Neutrophils 7.44 H Absolute Lymphocytes 2.25 Absolute Monocytes 0.80 Absolute Eosinophils 0.08 Absolute Basophils 0.08 PT INR APTT Sodium Potassium Chloride Carbon Dioxide Anion Gap BUN Creatinine Estimated GFR/1.73 m2 Glucose Calcium Magnesium Total Bilirubin AST ALT Alkaline Phosphatase Troponin I Total Protein Albumin TSH Urine Color Yellow Urine Clarity Clear Urine pH 5.5 Ur Specific Henderson > 1.030 H Urine Protein Negative Urine Ketones 15 H Urine Blood Negative Urine Nitrite Negative Urine Bilirubin Negative Urine Urobilinogen 0.2 Ur Leukocyte Esterase Negative Urine Glucose Negative Urine Opiates Screen Negative Urine Methadone Screen Negative Ur Barbiturates Screen Negative Ur Tricyclics Screen Negative Ur Amphetamines Screen Negative U Benzodiazepines Scrn Negative Urine Cocaine Screen Negative Ur THC Screen Positive A Ethyl Alcohol COVID-19 Source SARS-CoV-2 (PCR) 06/02/21 06/03/21 06/03/21 23:28 06:00 06:00 WBC 9.96 RBC 4.04 L Hgb 12.3 L Hct 37.4 L MCV 92.6 D MCH 30.4 MCHC 32.9 RDW 15.4 H Plt Count 217 MPV 9.9 Immature Gran % 0.4 Neutrophils % 66.4 Lymphocytes % 20.7 Monocytes % 10.0 Eosinophils % 1.7 Basophils % 0.8 Nucleated RBC % 0.0 Absolute Neutrophils 6.61 Absolute Lymphocytes 2.06 Absolute Monocytes 1.00 H Absolute Eosinophils 0.17 Absolute Basophils 0.08 PT INR APTT Sodium 137 Potassium 3.3 L Chloride 105 Carbon Dioxide 25.3 Anion Gap 6.7 BUN 15 Creatinine 0.7 Estimated GFR/1.73 m2 >= 60.00 Glucose 105 Calcium 8.4 L Magnesium Total Bilirubin 0.6 AST 23 ALT 38 Alkaline Phosphatase 67 Troponin I Total Protein 5.8 L Albumin 3.0 L TSH Urine Color Urine Clarity Urine pH Ur Specific Henderson Urine Protein Urine Ketones Urine Blood Urine Nitrite Urine Bilirubin Urine Urobilinogen Ur Leukocyte Esterase Urine Glucose Urine Opiates Screen Urine Methadone Screen Ur Barbiturates Screen Ur Tricyclics Screen Ur Amphetamines Screen U Benzodiazepines Scrn Urine Cocaine Screen Ur THC Screen Ethyl Alcohol COVID-19 Source Nasal/Nares SARS-CoV-2 (PCR) Negative
[2021-06-03] MEDS: Heparin 5,000 UNITS/ML VIAL 5000 UNITS SC (16:40)
[2021-06-03] MEDS: Cyclobenzaprine 10 MG TAB PO (21:28)
[2021-06-04] VITALS (9 sets, daily range): BP systolic 157–178; BP diastolic 73–94; PULSE 48–59; RESP 16; TEMP 36.3–36.9; O2SAT 96–100
[2021-06-04] MEDS: Heparin 5,000 UNITS/ML VIAL 5000 UNITS SC ×2 (03:44→17:30)
[2021-06-04 07:12] LABS: Hemoglobin A1C 6.4 % (<5.7)
[2021-06-04 07:24] LABS: Anion Gap 5.7 mmol/L (3-11); BUN 11 mg/dL (7-18); CO2 25.3 mmol/L (21.0-32.0); CREATININE 0.7 mg/dL (0.70-1.30); Calcium 8.2 mg/dL (8.5-10.1); Calculated LDL 72 mg/dL (<100); Chloride 108 mmol/L (98-107); Cholesterol 128 mg/dL (<200); Folate 7.7 ng/mL (8.6-20.0); Glucose 104 mg/dL (74-106); HDL Cholesterol 44 mg/dL (40-60); Potassium 3.8 mmol/L (3.5-5.1); Sodium 139 mmol/L (136-145); Triglyceride 60 mg/dL (<150); Vitamin B12 344 pg/mL (193-986)
[2021-06-04] MEDS: Thiamine 100 MG TAB PO (08:01)
[2021-06-04] MEDS: Multivitamin TAB 1 TAB PO (08:01)
[2021-06-04] MEDS: Atorvastatin 40 MG TAB 80 MG PO (08:01)
[2021-06-04] MEDS: Clopidogrel 75 MG TAB PO (08:01)
[2021-06-04] MEDS: Folic Acid 1 MG TAB PO (08:02)
[2021-06-04] MEDS: Normal Saline Flush 10 ML SYR IVP (08:02)
[2021-06-04] MEDS: Aspirin E.C. 81 MG TABEC PO (08:02)
[2021-06-04] MEDS: Magnesium Oxide 400 MG TAB PO ×2 (08:02→19:36)
--- NOTE | 2021-06-04 13:05 | PT.INTREAT ---
Date of service: 06/04/21 Time of Service: 08:30 PT Notes Visit Reasons: Subacute Right CVA Inpatient Physical Therapy Treatment Note [facility] Date: 06/04/2021 PRECAUTIONS: Activty as tolerated. Platform FWW due to weak left UE SUBJECTIVE: Stated he is still not able to use his left hand, but is able to wiggle his index finger today. OBJECTIVE: ? PAIN: No complaints of pain offered ? BED MOBILITY/TRANSFERS? Up on commode when I arrived to room? Sit-stand: CGA of 1-2 ? Stand-sit: CGA of 1-2 ? GAIT? Assistive Device: FWW with left UE platform, assist required to bring forearm upon/ down off platform ? Weight bearing: FWB Assist: CGA of 2 with ambulation and CGA of 1 with transfers chair-commode/ commode-chair ? Distance:? 8ft x 1 and 3ft x 2? Static standing with FWW for 5 minutes and 2 minutes with SBA while having buttock region cleaned post x 2 on commode for BM. ? THEREX: Performed AP, Seated hip flexion, Seated hip abd/add, LAQ x 10 reps each LE and AAROM with left UE for shoulder flexion to 90, shoulder scaption to 90, rows and PROM of wrist, forearm and supination / pronation x 10 reps each. Issued ball to work on trying to squeeze left fingers. Noted slight movement with index finger this am. ? ASSESSMENT:? Tolerated session fair. PLAN: Work on balance activities tomorrow in sitting and standing. TREATMENT CODE/TIME: 41435m5 and [id number], 8:30 to 9:00 am
--- NOTE | 2021-06-04 16:24 | PGE_ITS ---
Date of Service Date of service: 06/04/21 Time of Service: 16:24 Assessment and Plan Assessment and plan (1) Right sided cerebral hemisphere cerebrovascular accident: Status: Acute Assessment and plan: Subacute infarct right posterior parietal lobe with a mild amount of hemorrhagic transformation, as well as infarcts anterior temporal lobe and right basal ganglia. Atheroembolic vs cardioembolic. No arrhythmic events on tele. No evidence of PFO and no obvious thrombi on TTE. Because it is not clear whether it was cardio or atheroembolic, we are not transitioning to blood thinners at this time. Patient was discussed with [facility] [place] neurology yesterday: recommendation was made to continue asa and plavix despite a small amount of hemorrhage. We will continue permissive hypotension. Continue atorvastatin. Lipids at goal. A1C 6.4. Await formal neurology evaluation. PT/OT/Speech consulted. Continue neurochecks. (2) Dysarthria: Status: Acute Assessment and plan: Continue working with speech. (3) CAD (coronary artery disease): Status: Chronic Assessment and plan: Hold metoprolol. On asa, statin. (4) Diabetes type 2, controlled: Status: Chronic Assessment and plan: A1C 6.4 on metformin as outpatient. Hold metformin while inpatient. Cover with SSI. Carb consistent diet. (5) Hyperlipidemia: Status: Chronic Assessment and plan: Continue atorvastatin 80 mg (6) Essential hypertension: Status: Chronic Assessment and plan: Holding BP meds in light of permissive hypotension. (7) Alcohol abuse: Status: Chronic Assessment and plan: No evidence of EtOH withdrawal. Continue MVI, Thiamine. Evidence of B12 and folate deficiencies - replete both. 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 He states that he is frustrated with his LUE not working, but is pleased that his LLE is getting better. He has more strength in it today and feels stronger on his feet. He denied headache, dizziness, numbness, tingling. Endorsed still feeling like his speech is slurred. States that his mental status is alright. He understands that he will have to go to a SNF from here. Exam Narrative Exam Narrative: General: Pleasant elderly male who is very subtly dysarthric, A&Ox3, following commands, not tremulous Neuro: L facial weakness, mild dysarthria, otherwise CN II-XII intact, 0/5 LUE strength, 4+/5 LLE strength, 5/5 RUE and RLE strength. HEENT: EOMI, MMM Heart: RRR, no m/r/g Lungs: CTAB Abdomen: soft, nontender, nondistended Extremities: no edema BLEs, 1+ pedal pulses B Objective Last Vital Signs Temp 36.3 C L 06/04/21 15:27 Pulse 54 L 06/04/21 15:27 Resp 16 06/04/21 15:27 BP 163/73 H 06/04/21 15:27 Pulse Ox 97 06/04/21 15:27 Laboratory Results - last 24 hr 06/04/21 06/04/21 05:58 05:58 Sodium 139 Potassium 3.8 Chloride 108 H Carbon Dioxide 25.3 Anion Gap 5.7 BUN 11 Creatinine 0.7 Estimated GFR/1.73 m2 >= 60.00 Glucose 104 Hemoglobin A1c 6.4 H Calcium 8.2 L Magnesium 2.0 Triglycerides 60 Total Cholesterol 128 LDL Cholesterol, Calc 72 HDL Cholesterol 44 Vitamin B12 344 Folate 7.7 L Objective Narrative Objective Narrative: MRI brain: Subacute infarct right posterior parietal lobe with a mild amount of hemorrhagic transformation.? Infarcts also seen in the anterior right temporal lobe and right basal ganglia. Echo: Normal left ventricular wall thickness and chamber size.? Estimated ejection fraction is 55 to 60%.? Wall motion is normal Right ventricle appears grossly normal in size and function Both atria are normal in size There is no structural or hemodynamically significant valvular disease No intracardiac shunting is identified with agitated saline injection
[2021-06-04] MEDS: Cyclobenzaprine 10 MG TAB PO (21:00)
[2021-06-05] VITALS (10 sets, daily range): BP systolic 137–160; BP diastolic 60–84; PULSE 51–61; RESP 16–20; TEMP 36.3–37.2; O2SAT 93–97
--- NOTE | 2021-06-05 | DI.CT_ITS ---
Exam(s) CT HEAD WO EXAM: CT HEAD WO CLINICAL HISTORY: change in mental status, paralysis. TECHNIQUE: Imaging Protocol: Axial computed tomography images with coronal and sagittal reformatted images were created and reviewed COMPARISON: CT CT BRAIN NECK CTA from 06/02/[address] HEAD - STROKE PROTOCOL from 06/02/2021 FINDINGS: There is moderate generalized cerebral atrophy.. There are areas of apparent old infarction in righ t basal ganglia and temporoparietal region, unchanged from examination of June 02. No evidence of acute intracranial hemorrhage, mass effect, or midline shift. The orbital structures are unremarkable. The temporal bone structures appear intact. Calvarium: Normal. Visualized Paranasal sinuses/Mastoids: Clear. IMPRESSION: No no evidence of acute change. Additional evaluation with MRI may be considered if clinically appro priate. RADIATION DOSE DELIVERED: 803.05mGy.cm Total DLP 803.05mGy.cm Total DLP !Error CTDIvol DATA REPOSITORY: All CT scans at this facility are submitted to the National Radiology Data Registry (NRDR) Dose Index Registry (DIR) with the [employer] (ACR). RADIATION OPTIMIZATION: All CT scans at this facility use at least one of these dose optimization te chniques: automated exposure control; mA and/or kV adjustment per patient size (includes targeted exa ms where dose is matched to clinical indication); or iterative reconstruction.
[2021-06-05] MEDS: Heparin 5,000 UNITS/ML VIAL 5000 UNITS SC ×2 (03:31→16:45)
[2021-06-05 06:51] LABS: Platelet Count 249 10^3/uL (130-400)
[2021-06-05] MEDS: Aspirin E.C. 81 MG TABEC PO (08:21)
[2021-06-05] MEDS: Atorvastatin 40 MG TAB 80 MG PO (08:21)
[2021-06-05] MEDS: Thiamine 100 MG TAB PO (08:22)
[2021-06-05] MEDS: Clopidogrel 75 MG TAB PO (08:22)
[2021-06-05] MEDS: Magnesium Oxide 400 MG TAB PO ×2 (08:22→19:36)
[2021-06-05] MEDS: Folic Acid 1 MG TAB PO (08:22)
[2021-06-05] MEDS: Cyanocobalamin 500 MCG TAB 1000 MCG PO (08:22)
[2021-06-05] MEDS: Multivitamin TAB 1 TAB PO (08:23)
--- NOTE | 2021-06-05 12:56 | PT.INTREAT ---
Date of service: 06/05/21 Time of Service: 10:40 PT Notes Visit Reasons: Subacute Right CVA Inpatient Physical Therapy Treatment Note [facility] Date: 06/05/2021 PRECAUTIONS:Activity as tolerated. Platform FFW due to weak left UE SUBJECTIVE: Stated he is not able to move his fingers today. No complaints of discomfort post arm platform becoming dislodged from walker and patient having to be lowered into recliner chair. OBJECTIVE: PAIN: No reports of pain. BED MOBILITY/TRANSFERS Sit-supine: CGA of 2, slight assist with positioning left arm Sit-stand: CGA of 1-2 Stand-sit: CGA of 1-2 GAIT Assistive Device: Left UE platform FWW Weight bearing: Full Assist: CGA of one with transfer commode to recliner, requiring mod assist when arm platform became dislodged from walker causing patient to loose balance and require assist to be lowered to recliner chair. CGA of 2 with recliner to bed prior to lunch. Distance: 2ft commode to recliner and 7ft recliner to bed Deviation: Slight drift to the right due to lack of left arm / leg strength. THEREX: Performed seated AP, seated hip flexion and red t-band resisted hip abd/add, as per flow sheet. Performed AAROM of left shoulder flexion to 80 degrees, shoulder abduction to 70 degrees and PROM of left wrist and digits for 10 reps each. Avoided bicep flexion / extension due to IV placement. ASSESSMENT: Appeared to have decreased strength in left UE today. Unable to even make weak squeeze with fingers and required increased assistance with lifting left arm into flexion and abduction today. This was discussed with physician. PLAN: Continue with current plan of care, with focus on improving left UE and LE strength and ADL function. TREATMENT CODE/TIME: 38189 x 2, 10:40 to 10:55 (15') amb commode to recliner / chair activities and 11:30 to 11:40 am (10') ambulation chair to bed
[2021-06-05] MEDS: Normal Saline Flush 10 ML SYR IVP ×2 (13:58→19:36)
[2021-06-05] MEDS: THIAMINE 500 MG in Normal Saline 100 ML 200 MG IVPB ×2 (14:25→21:32)
[2021-06-05] MEDS: Normal Saline 500 ML 30 ML IV (14:26)
--- NOTE | 2021-06-05 16:10 | W.PM.PROGNOT ---
Date of Service Date of service: 06/05/21 Time of Service: Assessment and Plan Assessment and plan (1) Right sided cerebral hemisphere cerebrovascular accident: Start date: 06/05/21 Start time: Status: Acute Assessment and plan: Subacute infarct right posterior parietal lobe with a mild amount of hemorrhagic transformation, as well as infarcts anterior temporal lobe and right basal ganglia. Atheroembolic vs cardioembolic. No arrhythmic events on tele. No evidence of PFO and no obvious thrombi on TTE. Because it is not clear whether it was cardio or atheroembolic, we are not transitioning to blood thinners at this time. Patient was discussed with [facility] [place] neurology yesterday: recommendation was made to continue asa and plavix despite a small amount of hemorrhage. We will continue permissive hypotension. Continue atorvastatin. Lipids at goal. A1C 6.4. (see subjective) Await formal neurology evaluation. PT/OT/Speech consulted. Continue neurochecks. (2) Dysarthria: Start date: 06/05/21 Start time: Status: Acute Assessment and plan: Continue working with speech. Intermittent, clear speech with myself today, able to pronounce everything clearly (3) CAD (coronary artery disease): Start date: 06/05/21 Start time: 30 Status: Chronic Assessment and plan: Hold metoprolol. On asa, statin. (4) Diabetes type 2, controlled: Start date: 06/05/21 Start time: 30 Status: Chronic Assessment and plan: A1C 6.4 on metformin as outpatient. Hold metformin while inpatient. Cover with SSI. Carb consistent diet. (5) Hyperlipidemia: Start date: 06/05/21 Start time: 30 Status: Chronic Assessment and plan: Continue atorvastatin 80 mg (6) Essential hypertension: Start date: 06/05/21 Start time: 30 Status: Chronic Assessment and plan: Holding BP meds in light of permissive hypotension. (7) Alcohol abuse: Start date: 06/05/21 Start time: 30 Status: Chronic Assessment and plan: No evidence of EtOH withdrawal. Continue MVI, High dose thiamine due to comphrension changes Evidence of B12 and folate deficiencies - replete both. (8) B12 deficiency: Start date: 06/05/21 Start time: 30 Status: Acute Assessment and plan: Replete (9) Folate deficiency: Start date: 06/05/21 Start time: :30 Status: Acute Assessment and plan: replete (10) DVT prophylaxis: Start date: 06/05/21 Start time: Status: Acute Assessment and plan: SC heparin (11) Discharge planning issues: Start date: 06/05/21 Start time: Status: Acute Assessment and plan: Physical therapy recommends SNF on discharge Full code discussed with Subjective Subjective Patient reports: other Interval history since last seen: Patient sitting in chair, unable to move right arm completely flaccid. He asked three times if his fingers were wiggling, this provider had to remind him that he was paralyzed. This is a big deteriotation from when I examined him on Sunday. Sunday he was able to lift his arm from his should to his elbow while sitting still and he was able to chef assistant my hands using both hand and all fingers, he was also able to wiggle his fingers with his hand still, he could not move his hand sunday but he was able to wiggle his fingers, today however that arm is completely flaccid and he is not comprehending what is being told to him. He appears more tired and frail. He also did not do as well today with PT. He has had decompensation over 24 hours, therefore repeat CT scan done revealing no acute change, will wait for neurology opinon on whether to get another MRI. He is also having a pronating drift to LLE that was not present on Sunday. He spoke clearly to myself when asked questions. He has not had any difficulty with swallowing and was evaluated by speech and found to be able to have a normal diet. He denies CP, SOB. He also has hx alcohol use, he was drinking night before admission, though [facility] negative question of wernickis brain. Exam Narrative Exam Narrative: General: Pleasant elderly sitting up in chair, A&Ox3, following commands, not tremulous Neuro: L facial weakness, otherwise CN II-XII intact, 0/5 LUE strength, 3+/5 LLE strength, 5/5 RUE and RLE strength. Pronating drift to LLE new from Sunday HEENT: EOMI, MMM Heart: RRR, no m/r/g Lungs: CTAB Abdomen: soft, nontender, nondistended Extremities: no edema BLEs, 1+ pedal pulses B Objective Last Vital Signs Temp 36.8 C 06/05/21 11:43 Pulse 61 06/05/21 11:43 Resp 19 06/05/21 11:43 BP 137/77 06/05/21 11:43 Pulse Ox 97 06/05/21 11:43 Laboratory Results - last 24 hr 06/05/21 06:28 Plt Count 249
[2021-06-05] MEDS: Cyclobenzaprine 10 MG TAB PO (21:32)
[2021-06-06] VITALS (12 sets, daily range): BP systolic 124–154; BP diastolic 56–83; PULSE 52–63; RESP 18–22; TEMP 36.4–37; O2SAT 92–97
--- NOTE | 2021-06-06 | DI.MRI_ITS ---
Exam(s) MR BRAIN WO EXAM: MR BRAIN WO CLINICAL HISTORY: deteroation of LUE and LLE, flaccid TECHNIQUE: Multiplanar multisequence MRI of the brain was performed. COMPARISON: MR MR BRAIN WO from 06/03/2021 FINDINGS: VENTRICLES AND EXTRA AXIAL SPACES: Normal in size and morphology for the patient's age. MIDLINE SHIFT: None. CEREBRAL PARENCHYMA: There again seen areas of restricted diffusion involving the right basal ganglia , right posterior parietal lobe and the right temporal lobe. There has been slight increase in size of the area of restricted diffusion adjacent to the right lateral ventricle. No other areas of restr icted diffusion are seen. There are hyperintense areas in the white matter on the T2 and FLAIR image s most consistent with small vessel ischemic disease. HEMORRHAGE: None. BRAINSTEM/CEREBELLUM: Normal. CALVARIUM: Normal. VISUALIZED PARANASAL SINUSES/MASTOIDS:Clear. [place]: There is again seen lack of a flow void in branches of the right middle cerebral ar shelia. PITUITARY GLAND: There is a partially empty sella. OTHER FINDINGS: None. IMPRESSION: Slight progression of the right MCA distribution infarcts. There has been slight increase in size in the infarct adjacent to the right lateral ventricle. DATA REPOSITORY:
[2021-06-06] MEDS: Heparin 5,000 UNITS/ML VIAL 5000 UNITS SC ×2 (04:39→15:55)
[2021-06-06] MEDS: THIAMINE 500 MG in Normal Saline 100 ML 200 MG IVPB ×3 (06:21→21:20)
--- NOTE | 2021-06-06 07:01 | OTIE_ITS ---
Occupational Therapy Notes Inpatient Occupational Therapy Evaluation Date: 06/07/21 Referring Doctor:Edvin Castañeda MD OT Orders: Non urgent Precautions: Fall, standard, DNR/DNI PATIENT PROFILE/ADMITTING DIAGNOSIS: Pt is a 75 year old male who was admitted to Med Surg with a diagnosis of (L) hemiparesis, folate deficiency, dysarthria, cognitive deficit d/t CVA, alcohol abuse, ischemic stroke, weakness, facial droop, groin pain, skin lesion, essential HTN, NSTEMI, CAD, hyperlipidemia, and obesity. Past Medical History: All Active Problems?(Updated 06/03/21 @ 14:35 by Edvin Castañeda) Right sided cerebral hemisphere cerebrovascular accident (Acute) Ischemic stroke (Acute) Weakness (Acute) Facial droop (Acute) Groin pain, chronic, right (Acute) Incidental lung nodule, > 3mm and < 8mm (Acute) 10/2020 CT 6-7mm KANIKA lobe; repeat 6 months 11/2020- pt refuses f/u CTSkin lesion (Acute) 11/2020- removed [facility] benignDiabetes type 2, controlled (Chronic) Essential hypertension (Chronic) Status post coronary artery stent placement (Acute) 10/2018 (most recent) now has a total of 5 ([facility])NSTEMI (non-ST elevated myocar dial infarction) (Acute) most recent 10/2018 [facility]) Gastroesophageal reflux disease (Acute 01/28/13) diet controlledCAD (coronary artery disease) (Chronic) Hyperlipidemia (Chronic) Obesity (Chronic) Erectile dysfunction (Chronic) Seasonal allergies (Chronic) Medical History? Closed fracture of radius Depression resolved when taken off beta blockerHistory of tobacco use quit smoking age 48Myocardial infarct, old a.? 1995Perforation of tympanic membrane Pilonidal cyst 2 surgeries in the past- stable Surgical History? Cholecystectomy (~09/2013) History of Surgical Procedure a. Tonsillectomy. b. Pilonidal cysts removed. c. Stenting LAD 2001 d.? vasectomyPROCEDURES EXCISION OF PILONID CYST INSERT 1 VASCULAR STENT, 12/14;? HEART Status post cholecystectomy Status post tonsillectomy Status post vasectomy Tonsillectomy Vasectomy Social History/Home Situation: Pt states that he lives alone in a private home. He has steps to enter but also reports that he has steps inside his home. He reports that he was (I) at his baseline level of function. He states that he had no services or issues prior. Equipment owned/DME: Unable to assess SUBJECTIVE: Pt states that he is not doing well today. He notes that he feels that his weakness has gotten worse. OBJECTIVE: General Observation: Giordano, facial droop, leg droop/weakness, flaccid (L) UE Mental Status: A&Ox2 Pain: no c/o pain ROM: RUE AROM WFL L UE Flaccid (L) UE minimal movement actively STRENGTH: RUE 4/5 throughout LUE no strength or able to assume accurate testing positions. FUNCTIONAL MOBILITY/ADLS: Transfers with CGAx2 Supine-sit Max (A) x2 Sit-Stand Max (A) x2 Stand-sit Max (A) x2 Bed-Chair Standing had to bring the chair to pt because he was unable to go to chair BATHING sitting in chair Bathing UE with (R) UE (I) with face and denied all other bathing DRESSING pt denies performance. He did attempt the (R) sock which he was unable to perform. EATING sitting in chair, he was able to cut his food with fork but required mod vc for small bites and to go over HEAD SCHOOL CUSTODIAN recommendations as he was trying to eat large bites at once. He states that he is (I) with eating although set up and vc were needed throughout session. BALANCE: Static sitting Good Dynamic Sitting Fair Static Standing Poor Dynamic Standing Poor SPECIAL TESTS: Daily Activity Limitations Standardized Measure [facility] AM -PAC ?6 clicks? Daily Activity Inpatient Short Form: Raw score: 11 Standardized score: 29.04 CMS score: 70.42% INFORMED CONSENT/EDUCATION: Pt instructed in purpose of OT Consult and plan of care. ASSESSMENT: Patient is a 75-year-old male referred to occupational therapy services with diagnosis of (L) hemiparesis, folate deficiency, dysarthria, cognitive deficit d/t CVA, alcohol abuse, ischemic stroke, weakness, facial droop, groin pain, skin lesion, essential HTN, NSTEMI, CAD, hyperlipidemia, obesity. Patient presents with clinical signs and symptoms consistent with dx, as demonstrated by the following impairment level findings/functional limitations: Impairments in ADL/IADL and leisure activities, decreased strength in (L) UE/LE, decreased functional mobility, decreased functional activity tolerance. AMPAC score 11 Patient is assessed as a high 76992 complexity based on the following: History: see above Examination: see functional limitations as noted above Presentation: evolving Decision Making: AMPAC score 11 GOALS Goals x1 week 1. Grooming- standing at this sink pt will be min (A) with oral hygiene 2. Dressing- sitting in chair, pts will be (I) UE and mod (I) LE 3. Bathing- sitting in chair with max (A) Set up (I) face and mod (A) LE 4. Toileting- on commode (I) 5. Eating- (I) PLAN OF CARE/TREATMENT PLAN: 1x/day, 5 days/ week x 1week Initiate Occupational Therapy Services for bathing, dressing, grooming, toileting, eating, transfer training. DISCHARGE RECOMMENDATIONS Based on pts current level of function and decline in functional mobility, OT recommends SNF for continued rehabilitation when pt is medically cleared per MD. TREATMENT TIME/MINUTES/CODES 34849, 50234, 25 minutes (07:45) Venessa Pendleton OTR/L [facility]
[2021-06-06] MEDS: Folic Acid 1 MG TAB PO (09:33)
[2021-06-06] MEDS: Atorvastatin 40 MG TAB 80 MG PO (09:33)
[2021-06-06] MEDS: Magnesium Oxide 400 MG TAB PO ×2 (09:33→19:06)
[2021-06-06] MEDS: Cyanocobalamin 500 MCG TAB 1000 MCG PO (09:33)
[2021-06-06] MEDS: Clopidogrel 75 MG TAB PO (09:33)
[2021-06-06] MEDS: Normal Saline Flush 10 ML SYR IVP ×4 (09:34→21:24)
[2021-06-06] MEDS: Multivitamin TAB 1 TAB PO (09:34)
--- NOTE | 2021-06-06 10:06 | DM INPTCON_ITS ---
Date of service: 06/06/21 Time of Service: 10:07 Diabetes Inpatient Consult Reason for Visit: dm DESCRIPTION/ASSESSMENT: 75 year old male admitted with CVA with long standing hx of alcohol abuse, B12/folate deficiency, obestiy, hyperlipidemia, Dm2. Most recent A1C: 6.4% (06/04/21) indicating well controlled DM2 with current home meds (metformin 500 mg BID). Following diabetic diet and currently meeting 100% nutrient/fluid needs by mouth. Awaiting EATING DISORDER SPECIALIST consult. Supplemented for repletion the thiamin, folate, B12. MVI. INTERVENTION: none at this time PLAN: Will provided education prn. Time Spent in Nutritional Counseling and Treatment: 0
[2021-06-06] MEDS: Aspirin E.C. 81 MG TABEC PO (10:22)
--- NOTE | 2021-06-06 15:38 | NCONE_ITS ---
Date of service: 06/06/21 Time of Service: 15:38 Assessment and Plan Assessment and plan (1) Right sided cerebral hemisphere cerebrovascular accident: Status: Acute (2) Dysarthria: Status: Acute (3) Left hemiparesis: Status: Acute Assessment and plan: Mr. Arrieta is a 75 year-old, right-handed man admitted with: #1. Acute right hemisphere ischemic stroke with progression, stable in the last 48+ hours but now with a flaccid left hemiparesis and mild dysarthria. MRI shows ischemia in the right MCA distribution including the basal ganglia and the temporal and parietal lobes. The most likely etiology is intracranial atherosclerosis. A cardiac embolus remains in the differential and thus I recommend 30 day extended cardiac monitoring at discharge. For secondary stroke prevention: He should continue ASA 81mg daily + clopidogrel 75mg daily x 30 days, after which ASA should be stopped. He should continue atorvastatin at his outpatient dose of 80mg daily. Given 48 hours of stability, ok to start slowing reducing BP to goal of 120-140/80-90. Agree with inpatient PT/OT/ST. He should follow-up in clinic in ~6 weeks. History of Present Illness History of Present Illness Chief Complaint: stroke Narrative: Handedness: right. Mr. Arrieta is a 75 year-old man with hypertension, hyperlipidemia, DM2, and heart disease s/p stent x5. He is a former smoker. Mr. Arrieta was admitted on 06/02/21 after presenting with 3 days of progressive left hemiparesis involving the face, arm, and leg with increasing imbalance and dysarthria. He underwent imaging as below which was significant for R MCA ischemic strokes. He not a candidate for tPA or intervention as he was outside of the time window. He was already on ASA + statin at home. Upon admission, he was started on a combination of clopidogrel + ASA. He was evaluated by ST with no dietary changes made/significant dysphagia found. He underwent MRI brain imaging on 06/03/21 early in the day. There was evidence of microhemorrhage in the right parietal lobe. Antiplatelets were continued unchanged. It appears some time later on 06/03 or early 06/04, Mr. Arrieta's left hemiparesis worsened such that he evolved from a 4/5 to a flaccid hemiparesis. He notes no change since that time. MRI brain was repeated today which confirms extension of his stroke. Microhemorrhage was stable/unchanged. He had some low BPs on 06/02, but no significant hypotension on 06/03 or 06/04 to explain the decline. Work-up: -CTH (06/02/21): subacute R BG and parietal infarcts. I reviewed these images personally and this is my personal interpretation. -CTA head/neck (06/02/21): occluded R MCA at M2 segment. I reviewed these images personally and this is my personal interpretation. -MRI brain (06/03/21): Subacute infarcts in the R MCA distribution including the medial temporal, posterior temporal, parietal lobes and BG. I reviewed these images personally and this is my personal interpretation. -TTE (06/03/21): EF 55-60%. No wall motion abnormalities. LA normal. -Labs (A1c 6.4, LDL 72, B12 344, TSH 2.60, +THC, ETOH 47.6 -MRI brain (06/06/21): Slight progression of prior infarcts. Stable prior microhemorrhage. I reviewed these images personally and this is my personal interpretation. -Tele: no afib thus far. Review of Systems All systems reviewed & are unremarkable except as noted in HPI and below PFSH All Active Problems (Updated 06/06/21 @ 17:14 by Flavia Del Cid MD) Left hemiparesis (Acute) Folate deficiency (Acute) B12 deficiency (Acute) Dysarthria (Acute) Cognitive deficit as late effect of cerebrovascular accident (CVA) (Acute) Dysarthria as late effect of cerebrovascular accident (CVA) (Acute) Dysphagia as late effect of cerebrovascular accident (CVA) (Acute) Discharge planning issues (Acute) DVT prophylaxis (Acute) Alcohol abuse (Chronic) Right sided cerebral hemisphere cerebrovascular accident (Acute) Ischemic stroke (Acute) Weakness (Acute) Facial droop (Acute) Groin pain, chronic, right (Acute) Incidental lung nodule, > 3mm and < 8mm (Acute) 10/2020 CT 6-7mm KANIKA lobe; repeat 6 months 11/2020- pt refuses f/u CT Skin lesion (Acute) [place]2020- [place] [facility] [place] Diabetes type 2, controlled (Chronic) Essential hypertension (Chronic) Status post coronary artery stent placement (Acute) 10/2018 (most recent) now has a total of 5 [place] [place] NSTEMI (non-ST elevated myocardial infarction) (Acute) most recent 10/2018 [facility] [place]arrhea (Acute) Gastroesophageal reflux disease (Acute 01/28/13) diet controlled CAD (coronary artery disease) (Chronic) Hyperlipidemia (Chronic) Obesity (Chronic) Erectile dysfunction (Chronic) Seasonal allergies (Chronic) Medical History Closed fracture of radius Depression resolved when taken off beta neftali History of tobacco use quit smoking age 48 Myocardial infarct, old a. 1994 Perforation of tympanic membrane Pilonidal cyst 2 surgeries in the past- stable Surgical History Cholecystectomy (~09/2013) History of Surgical Procedure a. Tonsillectomy. b. Pilonidal cysts removed. c. Stenting LAD 2001 d. vasectomy PROCEDURES EXCISION OF PILONID CYST INSERT 1 VASCULAR STENT, 12/14; HEART Status post cholecystectomy Status post tonsillectomy Status post vasectomy Tonsillectomy Vasectomy Family History Mother Hyperlipidemia Stroke Breast cancer Father , 59 Diabetes Essential hypertension Heart disease Hyperlipidemia Maternal Grandfather Essential hypertension Heart disease Paternal Grandfather No problems noted. Maternal Grandmother Stroke Paternal Grandmother No problems noted. Sister No problems noted. Son No problems noted. Daughter No problems noted. Social History Smoking/Tobacco Use Status: Former Tobacco Use tobacco type: cigarettes, pipe and cigars Tobacco: How many years used: 27 Second Hand Exposure: Yes Smoking risk assessment performed?: Yes Alcohol Intake: current Alcohol Intake frequency: a few times a week Alcohol type: beer, wine and hard liquor Substance use type: marijuana Caregiver/Support person: No Household members: none Housing: house Communication Needs: Hard of Hearing and Corrective Lenses Do you need help understanding health information?: Rarely Pets and animals: No Sexually active: No Current gender identity: decline to answer What is your relationship status?: How often do you talk on the phone with friends or family?: once per week How often do you get together with friends or relatives?: once per week How often do you attend congregational or methodist services?: decline to answer Do you belong to any clubs or organized social groups?: yes Panel score (0-1 are the most socially isolated patients): 1 What type of physical activity do you participate in: none Nery/Denominational: Religion Special nery needs: No Seatbelt use: always Helmet use: Yes Helmet use: always Drive 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 81 Mg Tabec PO 81 mg DAILY BOZENA Administration Atorvastatin Calcium 80 mg 06/03/21 08:30 06/06/21 09:33 Atorvastatin 40 Mg Tab PO 80 mg DAILY BOZENA Administration Clopidogrel Bisulfate 75 mg 06/04/21 08:30 06/06/21 09:33 Clopidogrel 75 Mg Tab PO 75 mg DAILY BOZENA Administration Cyanocobalamin 1,000 mcg 06/04/21 07:45 Cyanocobalamin 1000 Mcg/Ml Vial IM/SC TODAY BOZENA Cyanocobalamin 1,000 mcg 06/05/21 08:30 06/06/21 09:33 Cyanocobalamin 500 Mcg Tab PO 1,000 mcg DAILY BOZENA Administration Cyclobenzaprine HCl 10 mg 06/03/21 22:00 06/05/21 21:32 Cyclobenzaprine 10 Mg Tab PO 10 mg HS BOZENA Administration Dextrose 0 gm 06/02/21 22:56 Glucose 40% Oral Solution 15 Gm/37.5 Gm Tube PO DIRECTED PRN Dextrose/Water 0 gm 06/02/21 22:56 Dextrose 50%-Water 25 Gm/50 Ml Syr IVP DIRECTED PRN Dimethicone/Zinc Oxide 0 gm 06/02/21 22:33 Marysol Protect Cream 142 Gm Tube TP PRN PRN Docusate Sodium 100 mg 06/02/21 22:33 Docusate Sodium 100 Mg Cap PO TID PRN PRN Folic Acid 1 mg 06/04/21 08:30 06/06/21 09:33 Folic Acid 1 Mg Tab PO 1 mg DAILY [facility] Administration Heparin Sodium (Porcine) 5,000 units 06/03/21 16:00 06/06/21 04:39 Heparin 5,000 Units/Ml Vial SC 5,000 units Q12H BOZENA Administration Sodium Chloride 500 mls @ 0 mls/hr 06/02/21 22:33 06/05/21 14:26 Saline 500ml Bag IV 30 mls/hr PRN PRN Administration As Directed Thiamine HCl 500 mg/ Sodium 105 mls @ 200 mls/hr 06/05/21 14:00 06/06/21 14:24 Chloride IVPB 06/08/21 06:32 200 mls/hr Q8H [facility] Administration IV Miscellaneous Supplies 1 each 06/02/21 22:45 Iv Access IV DIRECTED [facility] Insulin Aspart 0 units 06/03/21 07:30 06/06/21 12:56 Insulin Aspart 300 Units/3 Ml Pen SC Not Given AC [facility] Protocol Lorazepam 0 mg 06/03/21 07:52 Lorazepam 1 Mg Tab PO/SL DIRECTED PRN Magnesium Hydroxide 30 ml 06/02/21 22:33 Milk Of Magnesia 30 Ml Cup PO DAILY PRN PRN Magnesium Oxide 400 mg 06/02/21 23:30 06/06/21 09:33 Magnesium Oxide 400 Mg Tab PO 400 mg BID [facility] Administration Metoprolol Tartrate 12.5 mg 06/03/21 00:00 06/03/21 01:06 Metoprolol 12.5 Mg Tab PO Not Given Q8H [facility] Multivitamins 1 tab 06/03/21 08:30 06/06/21 09:34 Multivitamin Tab PO 1 tab DAILY [facility] Administration Nitroglycerin 0.4 mg 06/06/21 09:25 Nitroglycerin 0.4 Mg Tab SL Q5 MIN PRN X3 PRN Polyethylene Glycol 17 gm 06/02/21 22:33 Polyethylene Glycol 3350 17 Gm Packet PO DAILY PRN PRN Constipation Sodium Chloride 0 ml 06/02/21 22:33 06/06/21 14:25 Normal Saline Flush 10 Ml Syr IVP 10 ml PRN PRN Administration Allergies No Known Drug Allergies Allergy (Unverified 06/02/21 19:29) Exam Narrative Exam Narrative: Physical Exam: Gen: Patient of apparent stated age, NAD Head and face: no facial or cranial abnormalities Neck: Supple, no meningismus, no occipital tenderness CV: + S1, S2, RRR, no murmur Resp: CTA B/L Abd: soft, nontender, nondistended Ext: No edema. No clubbing or cyanosis. No bony deformity. Neuro Exam: Language: fluency, naming, repetition, and comprehension intact; Mental Status: AAOx3, current events intact, fund of knowledge intact; Speech: mild dysarthria Cranial nerves: Funduscopy: not performed CN II: visual maki intact CN III, IV, : extraocular movements intact, no nystagmus, pupils symmetric and reactive to light CN V: face sensation intact to LT and PP CN VII: left lower face weakness CN VIII: hearing intact bilaterally CN IX, X: palate rises symmetrically CN XI:SCM 5/5 bilaterally; trapezius 0/5 on left CN XII: protrudes tongue symmetrically Sensory: intact to LT, PP, and joint position in all extremities; reduced vibration in the toes bilaterally; Motor: bulk intact. Fine motor movements intact on R with no R pronator drift. Strength 5/5 throughout on the R. Flaccid left hemiparesis 0/5. Reflexes: 2+ at the biceps, triceps, brachioradialis, patella, and achilles tendons bilaterally; +L Babinski Coordination: FTN and HTS intact on the right; unable to test on the left Gait: not tested Results Last Vital Signs Temp 97.9 F 06/06/21 13:00 Pulse 58 L 06/06/21 13:00 Resp 19 06/06/21 13:00 BP 130/76 06/06/21 13:00 Pulse Ox 97 06/06/21 13:00 Labs Result diagrams: 06/05/21 06:28 06/04/21 05:58
--- NOTE | 2021-06-06 16:04 | PDOC.CMPRO ---
- If Service Date Differs Date of service: 06/06/21 Time of Service: 16:04 Care Management Progress Note S/O: Anoop met with Dr. Thao in Palliative Care today. He completed a COLST and decided on changing his code status to DNR/DNI. Anoop has been accepted to [facility] for SNF prior to returning home. Anticipate he will be ready for discharge tomorrow. CM will contact Opal in the morning to discuss discharge. He will need to transport via EMS. A: 75 year old male admitted to [facility] on 43 for Subacute Right CVA P: Anticipate, Anoop will discharge to SNF for continued rehabilitation vs home with [facility] RN/PT/OT/[employer], when medically ready. Anoop has been accepted to [facility]. PT recommends that he transport via EMS. Anoop in connected to the [facility].
--- NOTE | 2021-06-06 16:59 | PT.INTREAT ---
Date of service: 06/06/21 Time of Service: 15:45 PT Notes Visit Reasons: Subacute Right CVA Inpatient Physical Therapy Treatment Note [facility] Date: 06/06/2021 PRECAUTIONS: L hemiparesis, Fall, Activity as tolerated SUBJECTIVE: Anoop is pleasant and agreeable to participating in PT. He reports feeling frustrated with the left-sided hemiparesis. OBJECTIVE: ? PAIN: No c/o pain ? BED MOBILITY/TRANSFERS? Sit-stand: Min A x2? Stand-sit: Mod A x2? GAIT? Assistive Device: FWW with platform on L? Weight bearing: WBAT L Assist: Mod A x2 ? Distance:? 2 steps (held further attempts at ambulation due to the inability to advance L LE) ? THEREX: PROM to L UE throughout all planes x5. Patient demonstrates complete flaccidity in L UE, although continues to demonstrate full ROM. Patient completes weight shifting with Mod A x2 and FWW support. ASSESSMENT: Patient demonstrates complete flaccidity in L UE and LE at this time. He is unable to advance L LE with gait training, therefore gait training was held for safety reasons. PLAN: Continue with ROM activities, as well as weight shifting and transfer training. TREATMENT CODE/TIME: 20 minutes; 75134 (15:45)
--- NOTE | 2021-06-06 17:48 | W.PM.PROGNOT ---
Date of Service Date of service: 06/06/21 Time of Service: 15:30 Assessment and Plan Assessment and plan (1) Right sided cerebral hemisphere cerebrovascular accident: Start date: 06/06/21 Start time: 17:52 Status: Acute Assessment and plan: Repeat echo after talking to Neuro this am with concerns for change after admission. Edema to brain, however she did evaluate him and he is clearing up and doing better. Continues to be flaccid to LUE, facial droop and LLE drift He can however be discharged tomorrow to h/r 30 days on plavix and asa then d/c asa and continue plavix Echo done reading not back yet (2) Dysarthria: Start date: 06/06/21 Start time: 18:01 Status: Acute Assessment and plan: Continue working with speech, they did not appreciate dyarthria as well, likely it waxes and wanes Intermittent, clear speech with myself today, able to pronounce everything clearly (3) CAD (coronary artery disease): Start date: 06/06/21 Start time: 18:01 Status: Chronic Assessment and plan: Hold metoprolol. On asa, statin. (4) Diabetes type 2, controlled: Start date: 06/06/21 Start time: 18:01 Status: Chronic Assessment and plan: A1C 6.4 on metformin as outpatient. Hold metformin while inpatient. Cover with SSI. Carb consistent diet. (5) Hyperlipidemia: Start date: 06/06/21 Start time: 18:02 Status: Chronic Assessment and plan: Continue atorvastatin 80 mg (6) Essential hypertension: Start date: 06/06/21 Start time: 18:02 Status: Chronic Assessment and plan: Holding BP meds in light of permissive hypotension. (7) Alcohol abuse: Start date: 06/05/21 Start time: 11:30 Status: Chronic Assessment and plan: No evidence of EtOH withdrawal. Continue MVI, High dose thiamine due to comphrension changes Evidence of B12 and folate deficiencies - replete both. (8) B12 deficiency: Start date: 06/06/21 Start time: 18:03 Status: Acute Assessment and plan: Replete (9) Folate deficiency: Start date: 06/06/21 Start time: 18:03 Status: Acute Assessment and plan: replete (10) DVT prophylaxis: Start date: 06/06/21 Start time: 18:03 Status: Acute Assessment and plan: SC heparin (11) Discharge planning issues: Start date: 06/06/21 Start time: 18:03 Status: Acute Assessment and plan: Physical therapy recommends SNF on discharge Full code discussed with Subjective Subjective Patient reports: no new complaints Interval history since last seen: Sitting up in chair. He will be able to go to H/R tomorrow he has been cleared by neurology. He has been accepted. he will be on Plavix and asa for 30 days then stop asa after 30 days. Left arm flaccid. no dysarthria. Exam Narrative Exam Narrative: General: Pleasant elderly sitting up in chair, A&Ox3, following commands, not tremulous Neuro: L facial weakness, otherwise CN II-XII intact, 0/5 LUE strength, 3+/5 LLE strength, 5/5 RUE and RLE strength. Pronating drift to LLE HEENT: EOMI, MMM Heart: RRR, no m/r/g Lungs: CTAB Abdomen: soft, nontender, nondistended Extremities: no edema BLEs, pedal pulses x2 B Objective Last Vital Signs Temp 36.8 C 06/06/21 16:57 Pulse 54 L 06/06/21 16:57 Resp 18 06/06/21 16:57 BP 137/80 06/06/21 16:57 Pulse Ox 92 06/06/21 16:57
--- NOTE | 2021-06-06 19:09 | PCNE_ITS ---
Date of service: 06/06/21 Time of Service: 11:00 History of Present Illness History of Present Illness Chief Complaint: embolic stroke, goals of care, COLST Narrative: I met with Anoop in his room. He was alone. He is a , but has a significant other, Lea Price, who is a retired nurse. He spends most of his time with Jennifer and her family. His son Meet is his health care agent. Lea is his back-up. He admits to having very sedentary lifestyle. He always has. He has low stamina at baseline. He knows he has to go to rehab following this stroke. He wants to improve, get stronger and go home. He reports he had neurological symptoms for several days before Lea and her family persuaded him to come to the ER. He had been driving off to the left when he walked. He had several days of increased weakness on his left side. His LUE is basically paralyzed now, and his LLE is very weak. Over the weekend, nursing and CM report that he was confused. He seemed to have capacity and ability to make his own medical decisions today. 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 He worked in [employer] after he retired from the . He does not drink much. He says there was confusion about his drinking habits from the doctors here, as he was transported from the [facility] to the ER by ambulance. They assumed he was a regular at the [facility]. He has had no signs of withdrawal. He usually drinks 3 or 4 days per month, and never more than 2 drinks at a time. He is very surprised to have had a stroke. Only the women in his family have strokes, he said. Men have heart attacks. He's had 5 of them so far himself, the first when he was only 48 yo. Consults Consult date: 06/06/21 Requesting physician: Joan Parra Assessment and Plan Assessment and plan (1) DNI (do not intubate): Status: Acute Assessment and plan: Reviewed and filled out COLST form today. Scanned into chart; original to go home with him. Copy to be sent to Rehab. Needs to sign agent form at some point. (2) DNR (do not resuscitate): Status: Acute (3) Physician orders for life-sustaining treatment (POLST) form indicates patient wish for [id number] status: Status: Acute (4) Goals of care, counseling/discussion: Status: Acute Assessment and plan: Doesn't want to live permanently in SNF. Is [facility]. Would hire people in his home. Motivated to maintain his independence. Starting from low fitness level,however, even before his stroke. (5) Health care proxy on file: Status: Acute Review of Systems Narrative: Review of Systems Constitutional: negative Eyes: negative ENT: negative Cardiovascular: negative Respiratory: negative Gastrointestinal: negative : negative Musculoskeletal: negative Skin: negative Neurologic: Left-sided weakness, balance issues Psych: negative PFSH All Active Problems (Updated 06/09/21 @ 08:16 by Angie Thao MD) Health care proxy on file (Acute) yanely Price is alternate DNI (do not intubate) (Acute) DNR (do not resuscitate) (Acute) Physician orders for life-sustaining treatment (POLST) form indicates patient wish for [id number] status (Acute) Goals of care, counseling/discussion (Acute) Left hemiparesis (Acute) Folate deficiency (Acute) B12 deficiency (Acute) Dysarthria (Acute) Cognitive deficit as late effect of cerebrovascular accident (CVA) (Acute) Dysarthria as late effect of cerebrovascular accident (CVA) (Acute) Dysphagia as late effect of cerebrovascular accident (CVA) (Acute) Ischemic stroke (Acute) Weakness (Acute) Facial droop (Acute) Groin pain, chronic, right (Acute) Incidental lung nodule, > 3mm and < 8mm (Acute) 10/2020 CT 6-7mm KANIKA lobe; repeat 6 months 11/2020- pt refuses f/u CT Skin lesion (Acute) 11/2020- removed [facility] benign Diabetes type 2, controlled (Chronic) Essential hypertension (Chronic) Status post coronary artery stent placement (Acute) 10/2018 (most recent) now has a total of 5 ([facility]) NSTEMI (non-ST elevated myocardial infarction) (Acute) most recent 10/2018 [facility] Diarrhea (Acute) Gastroesophageal reflux disease (Acute 01/28/13) diet controlled CAD (coronary artery disease) (Chronic) Hyperlipidemia (Chronic) Obesity (Chronic) Erectile dysfunction (Chronic) Seasonal allergies (Chronic) Medical History Closed fracture of radius Depression resolved when taken off beta neftali History of tobacco use quit smoking age 48 Myocardial infarct, old a. 1994 Perforation of tympanic membrane Pilonidal cyst 2 surgeries in the past- stable Surgical History Cholecystectomy (~09/2013) History of Surgical Procedure a. Tonsillectomy. b. Pilonidal cysts removed. c. Stenting LAD 2001 d. vasectomy PROCEDURES EXCISION OF PILONID CYST INSERT 1 VASCULAR STENT, 12/14; HEART Status post cholecystectomy Status post tonsillectomy Status post vasectomy Tonsillectomy Vasectomy Family History Mother Hyperlipidemia Stroke Breast cancer Father , 59 Diabetes Essential hypertension Heart disease Hyperlipidemia Maternal Grandfather Essential hypertension Heart disease Paternal Grandfather No problems noted. Maternal Grandmother Stroke Paternal Grandmother No problems noted. Sister No problems noted. Son No problems noted. Daughter No problems noted. Social History (Updated 06/09/21 @ 08:21 by Angie Thao MD) Smoking/Tobacco Use Status: Former Tobacco Use tobacco type: cigarettes, pipe and cigars Quit Date: 02/12/93 Pack-years: 55 Tobacco: How many years used: 27 Second Hand Exposure: Yes Smoking risk assessment performed?: Yes Alcohol Intake: current Alcohol Intake frequency: a few times a week Alcohol type: beer, wine and hard liquor Counseling given: No Substance use type: marijuana Caregiver/Support person: Yes Household members: none Housing: house Number of Children: 2 Communication Needs: Hard of Hearing and Corrective Lenses Education Level: master's degree Do you need help understanding health information?: Rarely Pets and animals: No Sexually active: No Do you think of yourself as: straight/heterosexual Current gender identity: decline to answer What is your relationship status?: How often do you talk on the phone with friends or family?: three or more times per week How often do you get together with friends or relatives?: three or more times per week Do you belong to any clubs or organized social groups?: yes Panel score (0-1 are the most socially isolated patients): 2 What type of physical activity do you participate in: none and sedentary lifestyle Nery/Pentecostal: Latter-Day Special nery needs: No Seatbelt use: always Helmet use: Yes Helmet use: always Drive intox or ride w/intox cdl a driver: No Working smoke detector in home: Yes Fire extinguisher in home: Yes Do you feel safe at home: Yes Do you feel safe in your relationship?: Yes Additional Social history: after 46 years of marriage when his suddenly during an angiogram. Currently has female pleat taper, Lea Price. He spends a lot of time with her and her family. He's been living on his own since 2013. Son Meet is his health care agent and lives in [place]. Daughter Ingrid is in the midst of relocating from [place] to [place]. He recognizes that he will need acute rehab, but he wants to go home after that. [facility] involved. He would hire people to come in to his home if needed. Exam Narrative Exam Narrative: General: Pleasant elderly male sitting up in chair, A&Ox3, following commands, complete paralysis to KANIKA and LL extremities Neuro: L facial weakness, otherwise CN II-XII intact, 0/5 LUE strength, 0/5 LLE strength, 5/5 RUE and RLE strength. HEENT: EOMI, MMM Heart: RRR, no m/r/g Lungs: CTAB Abdomen: soft, nontender, nondistended Extremities: no edema BLEs, pedal pulses x2 B Psych Mental Status: mental status grossly normal Speech and Movement: slurred speech Mood: congruent mood Affect: normal affect Results Last Vital Signs Temp 98.2 F 06/06/21 16:57 Pulse 54 L 06/06/21 16:57 Resp 18 06/06/21 16:57 BP 137/80 06/06/21 16:57 Pulse Ox 92 06/06/21 16:57 Labs Result diagrams: 06/05/21 06:28 06/04/21 05:58
[2021-06-06] MEDS: Cyclobenzaprine 10 MG TAB PO (21:24)
[2021-06-07 03:20] VITALS: BP 165/81; PULSE 54; RESP 20; TEMP 36.2; O2SAT 97
[2021-06-07] MEDS: Heparin 5,000 UNITS/ML VIAL 5000 UNITS SC (03:28)
[2021-06-07] MEDS: THIAMINE 500 MG in Normal Saline 100 ML 200 MG IVPB (05:55)
[2021-06-07] MEDS: Normal Saline Flush 10 ML SYR IVP (05:58)
[2021-06-07] MEDS: Atorvastatin 40 MG TAB 80 MG PO (08:10)
[2021-06-07] MEDS: Multivitamin TAB 1 TAB PO (08:10)
[2021-06-07] MEDS: Magnesium Oxide 400 MG TAB PO (08:10)
[2021-06-07] MEDS: Folic Acid 1 MG TAB PO (08:10)
[2021-06-07] MEDS: Cyanocobalamin 500 MCG TAB 1000 MCG PO (08:10)
[2021-06-07] MEDS: Aspirin E.C. 81 MG TABEC PO (08:11)
[2021-06-07] MEDS: Clopidogrel 75 MG TAB PO (08:11)
[2021-06-07 08:38] VITALS: BP 128/78; PULSE 60; RESP 18; TEMP 36.7; O2SAT 94
--- NOTE | 2021-06-07 09:11 | DSE_ITS ---
Date of service: 06/07/21 Time of Service: 09:11 DS: Diagnosis Discharge Diagnosis (1) Right sided cerebral hemisphere cerebrovascular accident: Start date: 06/07/21 Start time: 09:13 Status: Acute Asessment and Plan: Patient admitted with left sided facial droop and now flaccid left arm with LLE now completely flaccid. He is unable to ambulate with LLE. MRI revealed: MRI with :?Subacute infarct right posterior parietal lobe with a mild amount of hemorrhagic transformation.? Infarcts also seen in the anterior right temporal lobe and right basal ganglia. Continue 80 mg atorvastatin as an outpatient per Neuro recommendation Allowed for permissive HTN. Now at this time he is out of the window and HTN meds can be resumed. Spoke with Dr. Momin from [facility] on Sunday he stated the hemorrhage is small enough to keep on dual antiplatelet therapy will use along with heparin subcu BID, Patient had declined over 24 hours and Repeat MRI was done yesterday revealed Slight progression of the right MCA distribution infarcts.? There has been slight increase in size in the infarct adjacent to the right lateral ventricle.? He was seen by Dr. Ivy yesterday. Recommends 30 days of both plavix and asa then d/c asa after 30 Event recorder for 30 days. Follow up with Dr. buckner as planned. He has been accepted to H/R will discharge to there today. (2) Dysarthria: Start date: 06/07/21 Start time: 10:02 Status: Acute Asessment and Plan: Waxes and wanes. Not heard by myself or speech yesterday, however very noticeable today. Slurred speech. No dysphagia, choking, can have a normal diet. (3) Left hemiparesis: Start date: 06/07/21 Start time: 10:18 Status: Acute Asessment and Plan: as above d/t above (4) Folate deficiency: Start date: 06/07/21 Start time: 10:30 Status: Acute Asessment and Plan: continue repletion (5) B12 deficiency: Start date: 06/07/21 Start time: 10:37 Status: Acute Asessment and Plan: continue repletion (6) Weakness: Start date: 06/07/21 Start time: 10:37 Status: Acute Asessment and Plan: due from above as above. discussed with Dr. Madden Discharge Plan Disposition Patient Disposition: SNF (LEVEL 1) [facility] Condition: Stable Discharge Details Reason For Visit: Subacute Right CVA Admit Date/Time: 06/02/21 22:33 Admit Provider: Edvin Castañeda Attending Provider: Edvin Castañeda Primary Care Provider: [facility] Course Hospital Course: 75 y.o male with PMH of HLD, GERD, CAD, DM admitted to [facility] after he was at the [facility] and they noticed that the patient was not acting right. MRI revealed that? Subacute infarct right posterior parietal lobe with a mild amount of hemorrhagic transformation.? Infarcts also seen in the anterior right temporal lobe and right basal ganglia. All anticoagulants held. Spoke with Dr. Momin from [facility] states the hemorrhage is small enough to keep on dual antiplatelet therapy will use along with heparin subcu BID. He declined over the weekend from being able to move his KANIKA arm not forearm or hand and LLE, to complete paralysis of the left side. Repeat MRI done revealing edema, echo revealed Normal left ventricular wall thickness and chamber size.? Estimated ejection fraction is 55 to 60%.? Wall motion is normal Right ventricle appears grossly normal in size and function Both atria are normal in size There is no structural or hemodynamically significant valvular disease No intracardiac shunting is identified with agitated saline injection Dr. Buckner saw patient yesterday and recommends to continue asa and plavix x 30 days then d/c asa, 30 day event recorder as well. he has been accepted to H/R and being transported via EMS. Home Meds and New Rx's Prescriptions: New clopidogrel 75 mg Tablet 75 mg PO DAILY Qty: 30 0RF magnesium oxide 400 mg (241.3 mg magnesium) Tablet 400 mg PO BID Qty: 20 0RF cyanocobalamin (vitamin B-12) [Vitamin B-12] 500 mcg Tablet 1,000 mcg PO DAILY Qty: 30 0RF folic acid 1 mg Tablet 1 mg PO DAILY Qty: 30 0RF Continued lisinopril 40 mg tablet 40 mg PO DAILY Qty: 90 4RF atenolol 25 mg tablet 25 mg PO DAILY Qty: 90 4RF metformin 500 mg tablet 500 mg PO BID Qty: 180 4RF sildenafil [Viagra] 50 mg tablet 50 mg PO PRN Qty: 10 3RF Rx Instructions: as directed, do not use within 24 hrs of Nitro cyclobenzaprine 10 mg tablet 10 mg PO HS Qty: 30 0RF multivitamin Tablet 1 tab PO DAILY 0RF nitroglycerin [Nitrostat] 0.4 mg tablet, sublingual 0.4 mg Sublingual PRN Qty: 25 3RF Rx Instructions: 1 TAB SL PRN chest pain hydrochlorothiazide 25 mg tablet 25 mg PO DAILY Qty: 90 4RF aspirin [Aspir-81] 81 MG tablet,delayed release (DR/EC) 81 mg PO DAILY 0RF atorvastatin 80 mg tablet 80 mg PO DAILY Qty: 90 4RF ipratropium bromide 42 mcg (0.06 %) spray,non-aerosol 2 spray ENRIQUE TID PRN (Reason: allergy symptoms) Qty: 15 11RF Rx Instructions: administer into each nostril amlodipine 10 mg tablet 10 mg PO DAILY Qty: 90 4RF Discharge Instructions Instructions: Ischemic Stroke (DC), Right Hemispheric Stroke (DC) Additional Instructions: Take aspirin and plavix for 30 days then stop aspirin after the 30 days Continue atorvastatin 80 mg Follow up with Dr. Buckner in 6 weeks Activity:: Activity as Tolerated Equipment/Supplies:: No Equipment Needed Diet:: Low Sodium Discharge Orders Discharge Orders: Discharge Order (Routine); Ordered 06/07/21 Ordered By: Batsheva Espinoza Other Ambulatory Orders: Cardiac Event Recorder (Routine) Timeframe: 1 Month Facility: [facility] - Location: Respiratory Therapy Ordered By: Batsheva Espinoza DS: Summary Time Spent with Patient providing and/or coordinating discharge services: Greater than 30 minutes Status at Discharge Functional status at discharge: bed bound Overall status at discharge: patient is not back to baseline Mental Status: mental status grossly normal Speech and Movement: slurred speech Mood: congruent mood Affect: normal affect Exam Narrative Exam Narrative: General: Pleasant elderly male sitting up in chair, A&Ox3, following commands, complete paralysis to KANIKA and LL extremities Neuro: L facial weakness, otherwise CN II-XII intact, 0/5 LUE strength, 0/5 LLE strength, 5/5 RUE and RLE strength. HEENT: EOMI, MMM Heart: RRR, no m/r/g Lungs: CTAB Abdomen: soft, nontender, nondistended Extremities: no edema BLEs, pedal pulses x2 B Psych Mental Status: mental status grossly normal Speech and Movement: slurred speech Mood: congruent mood Affect: normal affect DS: Data Vitals/I&O Vitals and I&O: Vital Signs Temperature 36.7 C 06/07/21 08:38 Temperature Source Tympanic 06/07/21 08:38 Pulse 60 06/07/21 08:38 Pulse Rhythm Regular 06/07/21 04:53 Pulse 63 06/02/21 23:30 Respiratory Rate 18 06/07/21 08:38 Respiratory Effort Non-Labored 06/07/21 04:53 Respiratory Depth Normal 06/07/21 04:53 Respiratory Pattern Normal 06/07/21 04:53 Blood Pressure 128/78 06/07/21 08:38 Blood Pressure Mean 72 06/02/21 23:01 Blood Pressure Position Supine 06/02/21 18:53 Pulse Oximetry 94 06/07/21 08:38 Oxygen Delivery Method Room Air 06/07/21 08:38 Oxygen Flow Rate 0 06/07/21 08:38 Pain Level 0 06/07/21 08:38 Comment 06/07/21 03:20 Intake & Output 06/06/21 06/06/21 06/07/21 11:59 23:59 11:59 Intake Total 355 / 1085 730 / 1085 105 / 105 Output Total 1075 / 1675 600 / 1675 600 / 600 Balance -720 / -590 130 / -590 -495 / -495 Weight 98.2 kg Intake: IV 105 / 335 230 / 335 105 / 105 Oral 250 / 750 500 / 750 Output: Urine 1075 / 1675 600 / 1675 600 / 600 Other: Urine Color Yellow Light Ingrid Yellow Straw Urine Appearance Cloudy Clear Clear Urine Odor Normal Comment Condom catheter in place at this time. Voiding Methods Urinal Data Completed and Pending Completed studies during hospitalization [Text1]: FINDINGS: Exam mildly limited by patient motion. VENTRICLES AND EXTRA AXIAL SPACES: Mild ventricular asymmetry due to mild edema related to right periventricular infarct. HEMORRHAGE: T1 weighted images show high signal peripherally in the gyri of the right posterior parietal lobe.? Susceptibility weighted images show a minimal amount of increased susceptibility artifact consistent with mild amount of hemorrhage. CEREBRAL PARENCHYMA: Areas of restricted diffusion seen in the right basal ganglia extending along the right lateral ventricle, worst at the region of the right parietal lobe as well as anterior aspect of the right temporal lobe.? Mild underlying atrophy and white matter changes of small vessel disease.? No space- occupying lesion identified. MIDLINE SHIFT: None. BRAINSTEM/CEREBELLUM: Normal. CALVARIUM: Normal. ENHANCEMENT: No suspicious enhancement identified. VISUALIZED PARANASAL SINUSES/MASTOIDS: Clear. OTHER FINDINGS: Decreased flow void distal right middle cerebral artery.? Partially empty sella. IMPRESSION: Subacute infarct right posterior parietal lobe with a mild amount of hemorrhagic transformation.? Infarcts also seen in the anterior right temporal lobe and right basal ganglia. Conclusion Normal left ventricular wall thickness and chamber size.? Estimated ejection fraction is 55 to 60%.? Wall motion is normal Right ventricle appears grossly normal in size and function Both atria are normal in size There is no structural or hemodynamically significant valvular disease No intracardiac shunting is identified with agitated saline injection FINDINGS: ?There is moderate generalized cerebral atrophy..? There are areas of apparent old infarction in right basal ganglia and temporoparietal region, unchanged from examination of June 02. No evidence of acute intracranial hemorrhage, mass effect, or midline shift. The orbital structures are unremarkable. The temporal bone structures appear intact. Calvarium: Normal. Visualized Paranasal sinuses/Mastoids: Clear. IMPRESSION: No no evidence of acute change.? Additional evaluation with MRI may be considered if clinically appropriate. FINDINGS: VENTRICLES AND EXTRA AXIAL SPACES: Normal in size and morphology for the patient's age. MIDLINE SHIFT: None. CEREBRAL PARENCHYMA: There again seen areas of restricted diffusion involving the right basal ganglia, right posterior parietal lobe and the right temporal lobe.? There has been slight increase in size of the area of restricted diffusion adjacent to the right lateral ventricle.? No other areas of restricted diffusion are seen.? There are hyperintense areas in the white matter on the T2 and FLAIR images most consistent with small vessel ischemic disease.? HEMORRHAGE: None. BRAINSTEM/CEREBELLUM: Normal. CALVARIUM: Normal.? VISUALIZED PARANASAL SINUSES/MASTOIDS:Clear. [place]: There is again seen lack of a flow void in branches of the right middle cerebral artery.? PITUITARY GLAND: There is a partially empty sella.? OTHER FINDINGS: None. IMPRESSION: Slight progression of the right MCA distribution infarcts.? There has been slight increase in size in the infarct adjacent to the right lateral ventricle.? PFSH All Active Problems Left hemiparesis (Acute) Folate deficiency (Acute) B12 deficiency (Acute) Dysarthria (Acute) Cognitive deficit as late effect of cerebrovascular accident (CVA) (Acute) Dysarthria as late effect of cerebrovascular accident (CVA) (Acute) Dysphagia as late effect of cerebrovascular accident (CVA) (Acute) Discharge planning issues (Acute) DVT prophylaxis (Acute) Alcohol abuse (Chronic) Right sided cerebral hemisphere cerebrovascular accident (Acute) Ischemic stroke (Acute) Weakness (Acute) Facial droop (Acute) Groin pain, chronic, right (Acute) Incidental lung nodule, > 3mm and < 8mm (Acute) 10/2020 CT 6-7mm KANIKA lobe; repeat 6 months 11/2020- pt refuses f/u CT Skin lesion (Acute) 11/2020- removed [facility] benign Diabetes type 2, controlled (Chronic) Essential hypertension (Chronic) Status post coronary artery stent placement (Acute) 10/2018 (most recent) now has a total of 5 ([facility]) NSTEMI (non-ST elevated myocardial infarction) (Acute) most recent 10/2018 [facility] Diarrhea (Acute) Gastroesophageal reflux disease (Acute 01/28/13) diet controlled CAD (coronary artery disease) (Chronic) Hyperlipidemia (Chronic) Obesity (Chronic) Erectile dysfunction (Chronic) Seasonal allergies (Chronic) Medical History Closed fracture of radius Depression resolved when taken off beta neftali History of tobacco use quit smoking age 48 Myocardial infarct, old a. 1994 Perforation of tympanic membrane Pilonidal cyst 2 surgeries in the past- stable Surgical History Cholecystectomy (~09/2013) History of Surgical Procedure a. Tonsillectomy. b. Pilonidal cysts removed. c. Stenting LAD 2001 d. vasectomy PROCEDURES EXCISION OF PILONID CYST INSERT 1 VASCULAR STENT, 12/14; HEART Status post cholecystectomy Status post tonsillectomy Status post vasectomy Tonsillectomy Vasectomy Family History Mother Hyperlipidemia Stroke Breast cancer Father , 59 Diabetes Essential hypertension Heart disease Hyperlipidemia Maternal Grandfather Essential hypertension Heart disease Paternal Grandfather No problems noted. Maternal Grandmother Stroke Paternal Grandmother No problems noted. Sister No problems noted. Son No problems noted. Daughter No problems noted. Social History Smoking/Tobacco Use Status: Former Tobacco Use tobacco type: cigarettes, pipe and cigars Tobacco: How many years used: 27 Second Hand Exposure: Yes Smoking risk assessment performed?: Yes Alcohol Intake: current Alcohol Intake frequency: a few times a week Alcohol type: beer, wine and hard liquor Substance use type: marijuana Caregiver/Support person: No Household members: none Housing: house Communication Needs: Hard of Hearing and Corrective Lenses Do you need help understanding health information?: Rarely Pets and animals: No Sexually active: No Current gender identity: decline to answer What is your relationship status?: How often do you talk on the phone with friends or family?: once per week How often do you get together with friends or relatives?: once per week How often do you attend mormon or baptism services?: decline to answer Do you belong to any clubs or organized social groups?: yes Panel score (0-1 are the most socially isolated patients): 1 What type of physical activity do you participate in: none Nery/Christianity: Pentecostal Special nery needs: No Seatbelt use: always Helmet use: Yes Helmet use: always Drive intox or ride w/intox patrol driver: No Do you feel safe at home: Yes Do you feel safe in your relationship?: Yes
--- NOTE | 2021-06-07 09:19 | OT.INDS ---
Date of service: 06/07/21 Occupational Therapy Notes Occupational Therapy Inpatient Discharge Summary Date: 06/07/21 Dates of Service: 06/06/21-06/07/21 Referring Doctor:Edvin Castañeda MD OT Orders: Non urgent Precautions: Fall, standard, DNR/DNI PATIENT PROFILE/ADMITTING DIAGNOSIS: Pt is a 75 year old male who was admitted to [facility] with a diagnosis of (L) hemiparesis, folate deficiency, dysarthria, cognitive deficit d/t CVA, alcohol abuse, ischemic stroke, weakness, facial droop, groin pain, skin lesion, essential HTN, NSTEMI, CAD, hyperlipidemia, and obesity. Past Medical History: All Active Problems?(Updated 06/03/21 @ 14:35 by Edvin Castañeda) Right sided cerebral hemisphere cerebrovascular accident (Acute) Ischemic stroke (Acute) Weakness (Acute) Facial droop (Acute) Groin pain, chronic, right (Acute) Incidental lung nodule, > 3mm and < 8mm (Acute) 10/2020 CT 6-7mm KANIKA lobe; repeat 6 months 11/2020- pt refuses f/u CTSkin lesion (Acute) 11/2020- removed [facility] benignDiabetes type 2, controlled (Chronic) Essential hypertension (Chronic) Status post coronary artery stent placement (Acute) 10/2018 (most recent) now has a total of 5 ([facility])NSTEMI (non-ST elevated myocardial infarction) (Acute) [facility]) Gastroesophageal reflux disease (Acute 01/28/13) diet controlledCAD (coronary artery disease) (Chronic) Hyperlipidemia (Chronic) Obesity (Chronic) Erectile dysfunction (Chronic) Seasonal allergies (Chronic) Medical History? Closed fracture of radius Depression resolved when taken off beta blockerHistory of tobacco use quit smoking age 48Myocardial infarct, old a.? 1995Perforation of tympanic membrane Pilonidal cyst 2 surgeries in the past- stable Surgical History? Cholecystectomy (~09/2013) History of Surgical Procedure a. Tonsillectomy. b. Pilonidal cysts removed. c. Stenting LAD 2001 d.? vasectomyPROCEDURES EXCISION OF PILONID CYST INSERT 1 VASCULAR STENT, 12/14;? HEART Status post cholecystectomy Status post tonsillectomy Status post vasectomy Tonsillectomy Vasectomy Social History/Home Situation: Pt states that he lives alone in a private home. He has steps to enter but also reports that he has steps inside his home. He reports that he was (I) at his baseline level of function. He states that he had no services or issues prior. Equipment owned/DME: Unable to assess SUBJECTIVE:??Pt states that he is not doing well today. OBJECTIVE:? General Observation: Giordano, facial droop, leg droop/weakness, flaccid (L) UE Mental Status: A&Ox2 Pain: no c/o pain ROM: RUE AROM WFL L UE Flaccid (L) UE minimal movement actively STRENGTH: RUE 4/5 throughout LUE no strength or able to assume accurate testing positions. FUNCTIONAL MOBILITY/ADLS:? Transfers with CGAx2 Supine-sit Max (A) x2 Sit-Stand Max (A) x2 Stand-sit Max (A) x2 Bed-Chair Standing had to bring the chair to pt because he was unable to go to chair Manual Therapy [id number]: OT performed PROM To pts (L) UE which today presents as a flaccid UE, he has no movement in her (L) UE, no strength and no functional use. OT and pt go over opening of hand, attempting to perform isometric strengthening, and use of his (R) UE for ADLs. BALANCE: Static sitting Good Dynamic Sitting Fair Static Standing Poor Dynamic Standing Poor ASSESSMENT:?? Patient is a? 75-year-old male referred to occupational therapy services with diagnosis of (L) hemiparesis, folate deficiency, dysarthria, cognitive deficit d/t CVA, alcohol abuse, ischemic stroke, weakness, facial droop, groin pain, skin lesion, essential HTN, NSTEMI, CAD, hyperlipidemia, obesity. Patient was discharged to SNF and medically cleared per MD. GOALS- Unable to assess 1.? Grooming- standing at this sink pt will be min (A) with oral hygiene 2.? Dressing- sitting in chair, pts will be (I) UE and mod (I) LE 3.? Bathing- sitting in chair with max (A) Set up (I) face and mod (A) LE 4.? Toileting- on commode (I) 5.? Eating- (I) PLAN OF CARE/TREATMENT PLAN: Discharged to SNF and medically cleared per MD. DISCHARGE RECOMMENDATIONS Based on pts current level of function and decline in functional mobility, OT recommends SNF for continued rehabilitation when pt is medically cleared per MD. TREATMENT TIME/MINUTES/CODES 43048, 10 minutes Venessa Pendleton OTR/L [facility]
--- NOTE | 2021-06-07 10:54 | CMDISCH_ITS ---
- If Service Date Differs Date of service: 06/07/21 Time of Service: 10:54 LACE Index Scoring Tool - Questions: Length of Stay (in days): 4 - 6 Acuity (Admit via E.D.?): Yes Comorbidities: Previous M.I., Cerebrovascular Disease, Diabetes w/o Complication E.D. Visits: 2 - Answers: Total Score: 12 Risk of Readmission: High Risk Care Management Discharge Reason for Hospitalization: CVA Discharge Plan: Anoop will discharge to [facility] for continued rehabilitation prior to returning home. He will transport via EMS and follow up with facility providers. Patient/Family Education Needs: Review of discharge instructions, follow up care, limitations, Ask Me Three Services Needed at Discharge: Half-Way Facility
[2021-06-07 11:50] VITALS: PULSE 58
--- NOTE | 2021-06-07 17:40 | PT.INDS ---
Date of service: 06/07/21 PT Notes Visit Reasons: Subacute Right CVA Physical Therapy Inpatient Discharge Summary Date: Dates of service: 06/03/2021 through 06/06/2021 This is a clinical summary of care provided for the duration of dates listed above. No charge was made in the completion of this documentation. Referring Doctor:? Edvin Castañeda MD PT Orders: PT CONSULT: Safety consult for D/C Precautions: Fall. Standard. Activity as tolerated. Patient Profile/Admitting Diagnosis: Anoop is a 75-year-old male who presented to the ED on 06/02/2021 due to weakness on the left hand and the left leg along with a left facial droop.? Patient was diagnosed with a right sided cerebral hemisphere cerebrovascular accident, essential hypertension, and type 2 diabetes mellitus. PMHX: All Active Problems?(Updated 06/02/21 @ 22:55 by Edvin Castañeda) Right sided cerebral hemisphere cerebrovascular accident (Acute) Ischemic stroke (Acute) Weakness (Acute) Facial droop (Acute) Groin pain, chronic, right (Acute) Incidental lung nodule, > 3mm and < 8mm (Acute) 10/2020 CT 6-7mm KANIKA lobe; repeat 6 months 11/2020- pt refuses f/u CTSkin lesion (Acute) 11/2020- removed [facility] benignDiabetes type 2, controlled (Acute) Essential hypertension (Acute) Status post coronary artery stent placement (Acute) 10/2018 (most recent) now has a total of 5 ([facility])NSTEMI (non-ST elevated myocardial infarction) (Acute) [facility]) Gastroesophageal reflux disease (Acute 01/28/13) diet controlled CAD (coronary artery disease) (Chronic) Hyperlipidemia (Chronic) Obesity (Chronic) Erectile dysfunction (Chronic) Seasonal allergies (Chronic) Medical History? Closed fracture of radius Depression resolved when taken off beta blockerHistory of tobacco use quit smoking age 48Myocardial infarct, old a.? 1995Perforation of tympanic membrane Pilonidal cyst 2 surgeries in the past- stable Surgical History? Cholecystectomy (~09/2013) History of Surgical Procedure a. Tonsillectomy. b. Pilonidal cysts removed. c. Stenting LAD 2001 d.? vasectomyPROCEDURES EXCISION OF PILONID CYST INSERT 1 VASCULAR STENT, 12/14;? HEART Status post cholecystectomy Status post tonsillectomy Status post vasectomy Tonsillectomy Vasectomy Social History/Home Situation: Lives alone in a private home with 4 steps to enter with rails on both sides.? He has another flight of steps to the second part of the house where his bedroom is.? Independent with all aspects of ADLs prior to admission.? 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 Equipment Owned/DME: [facility]PC Subjective: NT. See most recent [employer] notes. Objective: General Observation: NT. See most recent [employer] [facility] notes. Mental Status: NT. See most recent [employer] notes. Pain: NT. See most recent [employer] [facility] notes. Vital Signs: NT. See most recent [employer] [facility] notes. ROM: Right Upper Extremity: ? Shoulder Flexion allows 100 degrees. Shoulder abduction allows 90 degrees. Elbow flexion WFL. Wrist flexion WFL. Functional opening and closing of hand WFL. Left Upper Extremity:? Shoulder Flexion none. Shoulder abduction none. Elbow flexion none. Wrist flexion none. Functional opening and closing of hand unable. Right Lower Extremity: Hip flexion WFL. Hip abduction WFL. Knee flexion WFL. Ankle dorsiflexion WFL. Ankle plantarflexion WFL. Left Lower Extremity: Hip flexion lacks about 10 degrees from 90 degrees while seated at bed. Hip abduction allows 10 degrees.? Knee flexion -45 to 90 degrees.? Ankle dorsiflexion to neutral only. Ankle plantarflexion WFL. Strength: Right Upper Extremity: Shoulder flexors 3-/5. Shoulder abductors 3-/5. Elbow flexors 4-/5. Elbow extensors 4-/5. [employer] Program Director strong. Left Upper Extremity: Shoulder flexors 0/5. Shoulder abductors 0/5. Elbow flexors 0/5. Elbow extensors 0/5. Cable Television Program Director absent. Right Lower Extremity: Hip flexors 4-/5. Hip abductors 4-/5. Knee flexors 4-/5. Knee extensors 4-/5. Ankle dorsiflexors 4-/5. Ankle plantarflexors 4-/5. Left Lower Extremity: Hip flexors 3-/5. Hip abductors 3-/5. Knee flexors 3-/5. Knee extensors 3-/5. Ankle dorsiflexors 3-/5. Ankle plantarflexors 3-/5. Bed Mobility/Transfers: Rolling minimal assist Supine to sit minimal assist Sit to supine minimal assist Sit to stand moderate assist of 2 Stand to sit moderate assist of 2 Bed to bedside commode minimal assist of 2 Bedside commode to bedside chair minimal assist of 2 Gait: Unable to advance L LE due to to increasing weakness. Balance: Static Sitting: Fair Dynamic Sitting: Fair Static Standing: Poor Dynamic Standing: Poor ASSESSMENT: Increased need for physical assistance due to stroke evolution. L UE/LE weakness from right MCA thrombotic stroke, left UE more affected than left LE.? Functional mobility decline, dependent with transfers and ambulation tasks, impaired balance, increased risk for falls due to. Patient presents with clinical signs and symptoms consistent with current/admitting diagnoses that have resulted to mobility limitations, gait instability, generalized weakness, and overall ADL decline as demonstrated by the following impairment level findings: 1.? Decreased strength to L LUE /LE major muscle groups 2.? Impaired sitting/standing balance 3.? Impaired activity tolerance 4.? Limitation of joint range of motion in L L UE/LE 5.? Fatigue Impairments are contributing to the following functional limitations: 1.? Decline in bed mobility skills 2.? Decline in transfer skills 3.? Difficulty with ambulation without assistive device and physical assistance 4.? Increased completion time for mobility ADL performance 5.? Increased risk for falls 6.? Difficulty with managing steps alone safely Goals: Goals X1 week 1. Supine-Sit independent NOT MET 2. Sit-Supine independent NOT MET 3. Sit-Stand independent NOT MET 4. Stand-Sit independent with platform FWW NOT MET 5. Bed-Chair independent with platform FWW NOT MET 6. Chair-Bed independent with platform FWW NOT MET 7. Independent gait on level surface with use of with platform FWW for at least 100 feet without report of pain nor dyspnea NOT MET 8. Independent stair negotiation while holding onto B rails for at least 15 steps without report of pain nor dyspnea NOT MET DISCHARGE RECOMMENDATIONS: [] ? Home with no services [] [] ? Home with services [specify] [] ? Home with outpatient PT [] [X] ? SNF for continued rehabilitation.? Patient will benefit from detention facility placement for continued skilled physical therapy services in order to progress mobility level, strength, and balance in preparation for a safe discharge to home. [] ? [facility] [] [] ? SNF versus LTC based on ability to participate and progress [] TREATMENT CODE/TIME: NC Thank you for the opportunity to participate in the care of this patient. Tory Crisostomo PT, DPT, CLT [facility] [place], [place]
--- NOTE | 2021-06-10 13:01 | NUR.NOTE ---
Nursing Note: Accessed pt chart to cancel duplicate EKG order from the ED.
== END 2021-06-07 11:06 | disposition skilled nursing facility (03) | DRG 65 ==
LOC: ER 22:20 → MS 23:57
PROVIDERS: Emergency Medicine; Internal Medicine; Admitting Provider Family Medicine; Emergency Provider Student in an Organized Health Care Education/Training Program; PCP Nurse Practitioner; Visit Provider Family Medicine
DX: I63.311 Cerebral infarction due to thrombosis of right middle cerebral artery (principal); G81.04 Flaccid hemiplegia affecting left nondominant side; E11.9 Type 2 diabetes mellitus without complications; I10 Essential (primary) hypertension; R29.810 Facial weakness; R91.1 Solitary pulmonary nodule; Z95.5 Presence of coronary angioplasty implant and graft; I25.2 Old myocardial infarction; K21.9 Gastro-esophageal reflux disease without esophagitis; I25.10 Atherosclerotic heart disease of native coronary artery without angina pectoris; E78.5 Hyperlipidemia, unspecified; E66.9 Obesity, unspecified; Z87.891 Personal history of nicotine dependence; R47.1 Dysarthria and anarthria; F10.10 Alcohol abuse, uncomplicated; E53.8 Deficiency of other specified B group vitamins; Z68.32 Body mass index [BMI] 32.0-32.9, adult
CPT/HCPCS: 36415; 70496; 70498; 80048; 80053; 80061; 80307; 87635; 92526; 92610; 93005; 93306; 97110; 97140; 97162; 97167; 97530; 97535; 99223; 99285; J1650; 70450; 70551; 71045; 80320; 81003; 82607; 82746; 83036; 83735; 84443; 84484; 85025; 85049; 85610; 85730; 93010; 99232; 99233; 99239; J1644; J3480

== ENCOUNTER → 2021-06-06 08:06 | Outpatient (BNVA) | payer MEDICARE, OTHER, SELFPAY | PROVIDERS: PCP Nurse Practitioner; Referring Provider Nurse Practitioner; Visit Provider Psychiatry & Neurology Neurology | DX: R69 Illness, unspecified (principal) ==

== ENCOUNTER 2021-06-08 04:09 | Outpatient (CLI) | payer MEDICARE, OTHER, SELFPAY | END 2021-06-08 04:10 | disposition home or self-care (01) | PROVIDERS: PCP Nurse Practitioner; Visit Provider Nurse Practitioner ==

== ENCOUNTER 2021-06-12 20:42 | Outpatient (REF) | payer SELFPAY ==
[2021-06-12 21:22] LABS: Abs Immature Grans 0.04 10^3/uL (0.0-0.06); Absolute Monocyte Count 1.09 10^3/uL (0.1-0.8); Absolute Neutrophil Count 7.47 10^3/uL (1.2-6.7); Basophils % 0.9; Eosinophils % 1.7; HCT 45.7 % (40.0-50.0); HGB 14.7 g/dL (13.5-17.5); Immature Grans % 0.3; Lymphocytes % 23.5; MCH 30.1 pg (27.0-33.0); MCHC 32.2 % (32.0-36.0); MCV 94 fL (80-95); Monocytes % 9.4; Neutrophils % 64.2; Platelet Count 350 10^3/uL (130-400); RBC 4.88 10^6/uL (4.36-5.78); RDW 14.5 % (11.8-14.1); WBC 11.64 10^3/uL (4.4-10.8)
[2021-06-12 21:25] LABS: Absolute Lymphocyte Count 2.74 10^3/uL (1.2-3.4)
[2021-06-12 21:29] LABS: ALT 49 U/L (16-63); AST 24 U/L (15-37); Albumin 3.4 g/dL (3.4-5.0); Alkaline Phosphatase 73 U/L (46-116); Anion Gap 8.1 mmol/L (3-11); BUN 31 mg/dL (7-18); Bilirubin, Total 0.6 mg/dL (0.2-1.0); CO2 27.9 mmol/L (21.0-32.0); Calcium 10.7 mg/dL (8.5-10.1); Chloride 100 mmol/L (98-107); Glucose 109 mg/dL (74-106); Potassium 4.1 mmol/L (3.5-5.1); Sodium 136 mmol/L (136-145); Total Protein 6.3 g/dL (6.4-8.2)
[2021-06-12 21:54] LABS: Hemoglobin A1C 6.2 % (<5.7)
== END 2021-06-12 20:43 | disposition home or self-care (01) ==
LOC: LBN 20:42
PROVIDERS: PCP Nurse Practitioner; Visit Provider Family Medicine
DX: E11.9 Type 2 diabetes mellitus without complications (principal); I69.354 Hemiplegia and hemiparesis following cerebral infarction affecting left non-dominant side; I63.511 Cerebral infarction due to unspecified occlusion or stenosis of right middle cerebral artery
CPT/HCPCS: 80053; 83036; 85025

== ENCOUNTER 2021-06-15 07:40 | Outpatient (REF) | payer SELFPAY | END 2021-06-15 07:41 | disposition home or self-care (01) | LOC: LBN 07:40 | PROVIDERS: PCP Nurse Practitioner; Visit Provider Family Medicine | DX: I63.511 Cerebral infarction due to unspecified occlusion or stenosis of right middle cerebral artery (principal); R82.998 Other abnormal findings in urine | CPT/HCPCS: 87086 ==

== ENCOUNTER → 2021-07-18 09:46 | Outpatient (BNVA) | payer MEDICARE, OTHER, SELFPAY | PROVIDERS: PCP Nurse Practitioner; Referring Provider Nurse Practitioner; Visit Provider Psychiatry & Neurology Neurology | DX: I69.354 Hemiplegia and hemiparesis following cerebral infarction affecting left non-dominant side (principal); I69.322 Dysarthria following cerebral infarction; I95.9 Hypotension, unspecified; R45.3 Demoralization and apathy | CPT/HCPCS: 99215 ==

== ENCOUNTER 2021-08-06 14:00 | Inpatient (IN) | payer MEDICARE, OTHER, SELFPAY ==
--- NOTE | 2021-08-06 13:45 | RT.EKG_ITS ---
APPROVED REPORT Exam: Resting ECG Reason for Exam: nausea Patient Location: E HR:62 bpm ECG Measurements Heart Rate 62 AXIS NC 275 P 0 QRSd 177 QRS 232 QT 418 T 46 QTc 418 Conclusion Sinus rhythm...normal P axis, V-rate 60- 99 Atrial premature complexes...SV complexes w/ short R-R intvls Prolonged NC interval...NC >220, V-rate 50- 90 Nonspecific intraventricular conduction delay...QRSd >115mS, not LBBB/RBBB Consider anterior infarct...Q >30mS in V2-V5. Sinus. Widened QRS compared to previous. PACs. No STEMI. I have reviewed and interpreted ECG and agree with software generated interpretation.
--- NOTE | 2021-08-06 14:10 | W.ED.GENAD ---
Discharge Plan Disposition Patient Disposition: [facility] IN[facility]IENT Condition: Critical Discharge Details Clinical Impression: Comfort measures only status, Sepsis, Pneumonia, Acute kidney injury, Hyperkalemia Admit Date/Time: 08/06/21 16:36 Admit Provider: Joan Parra Attending Provider: Joan Parra Primary Care Provider: Renae Ferrer ED Provider: Trixie Acosta Discharge Data Discharge Date/Time-TO BE ENTERED AT DEPARTURE: 08/06/21 17:34 Medical Decision Making 75-year-old male who is DNR/DNI with a history of CHF, diabetes, GERD, hypertension, hyperlipidemia, [place], obesity, obstructive sleep apnea who is 2 months status post CVA with residual left-sided weakness currently [facility] presents with vomiting, decreased appetite and altered mental status for the past few days. Staff at [facility] and rehab reported that patient has been refusing transfer to the ED. Temp 101.1 rectal on arrival. Blood pressure 79/38. Oxygen saturation high 70s on nonrebreather. Respiratory paged. He has vomitus noted to the right side of his fontana. He has coarse breath sounds noted to the right chest. Foul-smelling urine with soiled depends. Patient was able to answer some questions and follow some commands. Differential diagnosis includes sepsis secondary to pneumonia, UTI, influenza, COVID, electrolyte abnormality, dehydration. Will provide IVF, obtain screening labs, portable chest x-ray, fluid, urinalysis. We will hold on BiPAP due to history of vomiting. We give IV Solu-Medrol and duo nebs. Labs and imaging reviewed. White blood cell count 10. Sodium 128. Potassium 7.4. Creatinine 8.8, was 1 in June 2021, Lipase normal. Fluvid negative. Chest x-ray notes multifocal pneumonia. Broad-spectrum antibiotics ordered. Oxygen saturation 96% on high flow nasal cannula which patient appears to be tolerating well. Patient remains hypotensive. Concern for sepsis with progression to septic shock and potential need for pressors. Son is now at bedside and after long discussion with son and patient -- Patient does not want transfer to another hospital, he does not not want dialysis, he does not want central line placement or pressors. Patient and son determined that he would like to be made comfort measures only. We will withdrawal all medications and invasive measures to keep patient comfortable. Case discussed with hospitalist who accepts patient for admission. Medical Records Medical records reviewed: Yes I reviewed the patient's medical records. Imaging Data Radiologic Study: Radiologist's impression: XR Chest Exam date and time: 08/06/2021 2:58 PM Age: 75 years old Clinical indication: Shortness of breath; Patient HX: Ams/loc, cough TECHNIQUE: Imaging protocol: Radiologic exam of the chest. Views: 1 view. Other technique: Portable exam. COMPARISON: XR PORTABLE CHEST AP 06/02/2021 7:05 PM FINDINGS: Lungs: The lungs are slightly hypoinflated. Overlying medical equipment obscures some detail. New lines there are some coarse airspace opacities in a slightly perihilar and lower lobe distribution. Pleural spaces: Unremarkable. No pleural effusion. No pneumothorax. Heart/Mediastinum: Unremarkable. No cardiomegaly. Diaphragm: Mild elevation left hemidiaphragm. Bones/joints: Unremarkable. Soft tissues: The patient is slightly rotated to the left with mild overlying chin artifact. IMPRESSION: Patchy airspace disease. Consider multifocal pneumonia. Exam limitations as noted. Lab Data Lab results reviewed: Yes I reviewed the patient's lab results. Labs: Laboratory Tests Range/Units 08/06/21 08/06/21 08/06/21 14:35 14:35 14:35 WBC (4.4-10.8) 10^3/uL 10.74 RBC (4.36-5.78) 10^6/uL 5.09 Hgb (13.5-17.5) g/dL 15.3 Hct (40.0-50.0) % 46.8 MCV (80-95) fL 92 MCH (27.0-33.0) pg 30.1 MCHC (32.0-36.0) % 32.7 RDW (11.8-14.1) % 14.2 H Plt Count (130-400) 10^3/uL 296 MPV (8.0-11.0) fL 11.0 Immature Gran % 0.1 Neutrophils % 83.2 Lymphocytes % 9.1 Monocytes % 7.3 Eosinophils % 0.0 Basophils % 0.3 Nucleated RBC % (0.0-0.3) % 0.0 Absolute Neutrophils (1.2-6.7) 10^3/uL 8.94 H Absolute Lymphocytes (1.2-3.4) 10^3/uL 0.98 L Absolute Monocytes (0.1-0.8) 10^3/uL 0.78 Absolute Eosinophils (0.0-0.7) 10^3/uL 0.00 Absolute Basophils (0.0-0.2) 10^3/uL 0.03 Sodium (136-145) mmol/L 128 L Potassium (3.5-5.1) mmol/L 7.4 H* Chloride (98-107) mmol/L 90 L Carbon Dioxide (21.0-32.0) mmol/L 21.0 Anion Gap (3-11) mmol/L 17.0 H BUN (7-18) mg/dL 177 H* Creatinine (0.70-1.30) mg/dL 8.8 H* Estimated GFR/1.73 m2 (mL/min/1.73m2) 5.89 Glucose (74-106) mg/dL 117 H Calcium (8.5-10.1) mg/dL 10.1 Total Bilirubin (0.2-1.0) mg/dL 0.7 AST (15-37) U/L 63 H ALT (16-63) U/L 167 H Alkaline Phosphatase (46-116) U/L 158 H Total Protein (6.4-8.2) g/dL 7.5 Albumin (3.4-5.0) g/dL 3.1 L Lipase (73-393) U/L COVID-19 Source Nasopharynx SARS-CoV-2 (PCR) (Negative) Negative Influenza Type A (PCR) (Negative) Negative Influenza Type B (PCR) (Negative) Negative RSV (PCR) (Negative) Negative Range/Units 08/06/21 14:35 WBC (4.4-10.8) 10^3/uL RBC (4.36-5.78) 10^6/uL Hgb (13.5-17.5) g/dL Hct (40.0-50.0) % MCV (80-95) fL MCH (27.0-33.0) pg MCHC (32.0-36.0) % RDW (11.8-14.1) % Plt Count (130-400) 10^3/uL MPV (8.0-11.0) fL Immature Gran % Neutrophils % Lymphocytes % Monocytes % Eosinophils % Basophils % Nucleated RBC % (0.0-0.3) % Absolute Neutrophils (1.2-6.7) 10^3/uL Absolute Lymphocytes (1.2-3.4) 10^3/uL Absolute Monocytes (0.1-0.8) 10^3/uL Absolute Eosinophils (0.0-0.7) 10^3/uL Absolute Basophils (0.0-0.2) 10^3/uL Sodium (136-145) mmol/L Potassium (3.5-5.1) mmol/L Chloride (98-107) mmol/L Carbon Dioxide (21.0-32.0) mmol/L Anion Gap (3-11) mmol/L BUN (7-18) mg/dL Creatinine (0.70-1.30) mg/dL Estimated GFR/1.73 m2 (mL/min/1.73m2) Glucose (74-106) mg/dL Calcium (8.5-10.1) mg/dL Total Bilirubin (0.2-1.0) mg/dL AST (15-37) U/L ALT (16-63) U/L Alkaline Phosphatase (46-116) U/L Total Protein (6.4-8.2) g/dL Albumin (3.4-5.0) g/dL Lipase (73-393) U/L 49 COVID-19 Source SARS-CoV-2 (PCR) (Negative) Influenza Type A (PCR) (Negative) Influenza Type B (PCR) (Negative) RSV (PCR) (Negative) ECG Data Attestation: I personally reviewed and interpreted this ECG (s) as follows: Interpretation: Rate of 62, sinus, widened QRS. PACs. No STEMI HPI General Mode of arrival: EMS. Date/Time Provider Initiated Documentation: 08/06/21 14:27. Limitations to Documentation: altered mental status and physical limitation. Information obtained by: patient. HPI Narrative: Patient is a 75-year-old male who is DNR/DNI with a history of CHF, diabetes, hypertension, hyperlipidemia, [place], obesity, obstructive sleep apnea who presents from [facility] for vomiting, poor appetite and altered mental status for the past few days. Patient sustained a stroke 2 months ago and has been at the health and rehab since then. He has chronic residual left-sided weakness. Son states he does ambulate at baseline with use of assistive device and is undergoing physical therapy. Son states he can be oriented at times but may not know the date. Health and rehab reports that patient has been refusing transfer to the ED for the past few days and has been refusing any care at the rehab. EMS reported a temp of 99.1, blood pressure 95/55, with oxygen saturation 77% on room air. Related Data Home Medications Medication Instructions Recorded Confirmed metformin 500 mg tablet 500 mg PO BID #180 tabs 08/05/20 08/06/21 atorvastatin 80 mg tablet 80 mg PO DAILY #90 tab-caps 08/31/20 08/06/21 amlodipine 10 mg tablet 10 mg PO DAILY #90 tabs 09/30/20 08/06/21 atenolol 25 mg tablet 25 mg PO DAILY #90 tabs 12/10/20 08/06/21 lisinopril 40 mg tablet 40 mg PO DAILY #90 tabs 12/10/20 08/06/21 cyclobenzaprine 10 mg tablet 10 mg PO HS #30 tabs 03/17/21 08/06/21 hydrochlorothiazide 25 mg tablet 25 mg PO DAILY #90 tabs 04/05/21 08/06/21 multivitamin 1 tab PO DAILY 04/05/21 08/06/21 nitroglycerin 0.4 mg sublingual 0.4 mg sublingual PRN #25 tabs 04/05/21 08/06/21 tablet (Nitrostat) clopidogrel 75 mg tablet 75 mg PO DAILY #30 tabs 06/07/21 08/06/21 cyanocobalamin (vitamin B-12) 500 1,000 mcg PO DAILY #30 tabs 06/07/21 08/06/21 mcg tablet (Vitamin B-12) folic acid 1 mg tablet 1 mg PO DAILY #30 tabs 06/07/21 08/06/21 magnesium oxide 400 mg (241.3 mg 400 mg PO BID #20 tabs 06/07/21 08/06/21 magnesium) tablet calcium carbonate 200 mg calcium 200 mg PO QID 07/14/21 08/06/21 (500 mg) chewable tablet (Tums) omeprazole 20 mg capsule,delayed 20 mg PO DAILY 07/14/21 08/06/21 release ondansetron 8 mg disintegrating 8 mg PO Q12H 07/14/21 08/06/21 tablet acetaminophen 325 mg capsule 650 mg PO Q6H 07/18/21 08/06/21 (Tylenol) saliva substitute combo no.9 15 ml mucous membrane BID-QID PRN 07/18/21 08/06/21 (Biotene Dry Mouth Oral Rinse mouthwash) prochlorperazine maleate 5 mg 5 mg PO TID PRN nausea and 07/19/21 08/06/21 tablet (Compazine) vomiting #14 tabs bisacodyl 10 mg rectal suppository 10 mg KS DAILY PRN 08/01/21 08/06/21 ipratropium bromide 21 mcg (0.03 2 spray intranasal BID 08/01/21 08/06/21 %) nasal spray sildenafil 50 mg tablet 50 mg PO DAILY PRN 08/01/21 08/06/21 sodium phosphates 19 gram-7 118 ml KS ONCE 08/01/21 08/06/21 gram/197 mL enema (Fleet Enema Extra) morphine concentrate 100 mg/5 mL 10 mg (0.5 mL) PO Q3H PRN pain #30 08/03/21 08/06/21 (20 mg/mL) oral solution mL Previous Rx's Medication Instructions Recorded metformin 500 mg tablet 500 mg PO BID #180 tabs 08/05/20 atorvastatin 80 mg tablet 80 mg PO DAILY #90 tab-caps 08/31/20 amlodipine 10 mg tablet 10 mg PO DAILY #90 tabs 09/30/20 atenolol 25 mg tablet 25 mg PO DAILY #90 tabs 12/10/20 lisinopril 40 mg tablet 40 mg PO DAILY #90 tabs 12/10/20 cyclobenzaprine 10 mg tablet 10 mg PO HS #30 tabs 03/17/21 hydrochlorothiazide 25 mg tablet 25 mg PO DAILY #90 tabs 04/05/21 nitroglycerin 0.4 mg sublingual 0.4 mg sublingual PRN #25 tabs 04/05/21 tablet (Nitrostat) clopidogrel 75 mg tablet 75 mg PO DAILY #30 tabs 06/07/21 cyanocobalamin (vitamin B-12) 500 1,000 mcg PO DAILY #30 tabs 06/07/21 mcg tablet (Vitamin B-12) folic acid 1 mg tablet 1 mg PO DAILY #30 tabs 06/07/21 magnesium oxide 400 mg (241.3 mg 400 mg PO BID #20 tabs 06/07/21 magnesium) tablet prochlorperazine maleate 5 mg 5 mg PO TID PRN nausea and 07/19/21 tablet (Compazine) vomiting #14 tabs morphine concentrate 100 mg/5 mL 10 mg (0.5 mL) PO Q3H PRN pain #30 08/03/21 (20 mg/mL) oral solution mL Allergies Allergy/AdvReac Type Severity Reaction Status Date / Time No Known Drug Allergies Allergy Verified 07/18/21 09:52 General Stated Complaint: GenMedical YANELIS: 2 Review of Systems Unobtainable due to mental status Constitutional Constitutional: Denies chills, Denies excessive sweating, Denies fatigue, Denies fever(s), Denies weakness and Denies weight loss Eyes Eyes: Reports system reviewed and no additional complaints, except as documented and Denies blurry vision ENT Ears, Nose, Mouth, and Throat: Denies vertigo, Denies dizziness, Denies otalgia, Denies nasal congestion, Denies sore throat and Denies throat swelling Cardiovascular Cardiovascular: Denies chest pain, Denies syncope, Denies rapid heart rate and Denies dyspnea Respiratory Respiratory: Denies chest congestion, Denies cough, Denies pain on inspiration and Denies dyspnea Gastrointestinal Gastrointestinal: Denies abdominal pain, Denies diarrhea and Denies vomiting Genitourinary Genitourinary: Denies hematuria, Denies dysuria and Denies flank pain Musculoskeletal Musculoskeletal: Denies back pain and Denies joint swelling Integumentary/Breasts Skin/Breast: Denies lesions and Denies rash Neurologic Neurologic: Denies behavioral changes, Denies confusion, Denies vertigo, Denies dizziness, Denies syncope, Denies localized weakness and Denies weakness Psychiatric Psychiatric: Denies behavioral changes, Denies confusion and Denies depression Endocrine Endocrine: Denies excessive sweating and Denies fatigue Hematologic/Lymphatic Hematologic/Lymphatic: Denies easy bruising and Denies lymphadenopathy Allergic/Immunologic Allergic/Immunologic: Denies throat swelling PFSH All Active Problems Comfort measures only status (Acute) Sepsis (Acute) Pneumonia (Acute) Acute kidney injury (Acute) Hyperkalemia (Acute) Cerebral infarction due to unspecified occlusion or stenosis of right middle cerebral artery (Acute) Goal LDL <70. Goal SBP ~130. Goal A1c <7. Apathy (Acute) Hypotension (Acute) Decreased activities of daily living (ADL) (Acute) Nausea (Acute) Weight loss (Acute) Comfort measures only status (Acute) Health care proxy on file (Acute) son Anoop Price is alternate DNI (do not intubate) (Acute) DNR (do not resuscitate) (Acute) Physician orders for life-sustaining treatment (POLST) form indicates patient wish for [id number] status (Acute) Goals of care, counseling/discussion (Acute) Left hemiparesis (Acute) Folate deficiency (Acute) B12 deficiency (Acute) Dysarthria (Acute) Cognitive deficit as late effect of cerebrovascular accident (CVA) (Acute) Dysarthria as late effect of cerebrovascular accident (CVA) (Acute) Dysphagia as late effect of cerebrovascular accident (CVA) (Acute) Ischemic stroke (Acute) Weakness (Acute) Facial droop (Acute) Groin pain, chronic, right (Acute) Incidental lung nodule, > 3mm and < 8mm (Acute) 10/2020 CT 6-7mm KANIKA lobe; repeat 6 months 11/2020- pt refuses f/u CT Skin lesion (Acute) 11/2020- [place] [facility] [place] benign Diabetes type 2, controlled (Chronic) Essential hypertension (Chronic) Status post coronary artery stent placement (Acute) 10/2018 (most recent) now has a total of 5 ([facility] [place] NSTEMI (non-ST elevated myocardial infarction) (Acute) most recent 10/2018 [facility] [place] Diarrhea (Acute) Gastroesophageal reflux disease (Acute 01/28/13) diet controlled CAD (coronary artery disease) (Chronic) Hyperlipidemia (Chronic) Obesity (Chronic) Erectile dysfunction (Chronic) Seasonal allergies (Chronic) Medical History Alcohol abuse Allergic rhinitis Atherosclerotic heart disease of [place] coronary artery without angina pectoris Closed fracture of radius Depression resolved when taken off beta neftali Discharge planning issues DVT prophylaxis Dysarthria and anarthria Dysphagia, oropharyngeal phase Facial weakness following cerebral infarction History of tobacco use quit smoking age 48 Muscle weakness Myocardial infarct, old a. 1994 Other symbolic dysfunction Perforation of tympanic membrane Pilonidal cyst 2 surgeries in the past- stable Right sided cerebral hemisphere cerebrovascular accident Subsequent non-ST elevation (NSTEMI) myocardial infarction Unspecified abnormalities of gait and mobility Unspecified symptoms and signs involving cognitive functions following cerebral infarction Surgical History Cholecystectomy (~09/2013) History of Surgical Procedure a. Tonsillectomy. b. Pilonidal cysts removed. c. Stenting LAD 2001 d. vasectomy PROCEDURES EXCISION OF PILONID CYST INSERT 1 VASCULAR STENT, 12/14; HEART Status post cholecystectomy Status post tonsillectomy Status post vasectomy Tonsillectomy Vasectomy Family History Mother Hyperlipidemia Stroke Breast cancer Father , 59 Diabetes Essential hypertension Heart disease Hyperlipidemia Maternal Grandfather Essential hypertension Heart disease Paternal Grandfather No problems noted. Maternal Grandmother Stroke Paternal Grandmother No problems noted. Sister No problems noted. Son No problems noted. Daughter No problems noted. Social History Smoking/Tobacco Use Status: Former Tobacco Use tobacco type: cigarettes, pipe and cigars Quit Date: 02/12/93 Pack-years: 53 Tobacco: How many years used: 27 Second Hand Exposure: Yes Smoking risk assessment performed?: Yes Alcohol Intake: current Alcohol Intake frequency: a few times a week Alcohol type: beer, wine and hard liquor Counseling given: No Substance use type: marijuana Caregiver/Support person: Yes Household members: none Housing: house Number of Children: 2 Communication Needs: Hard of Hearing and Corrective Lenses Education Level: master's degree Do you need help understanding health information?: Rarely Pets and animals: No Sexually active: No Do you think of yourself as: straight/heterosexual Current gender identity: decline to answer What is your relationship status?: How often do you talk on the phone with friends or family?: three or more times per week How often do you get together with friends or relatives?: three or more times per week Do you belong to any clubs or organized social groups?: yes Panel score (0-1 are the most socially isolated patients): 2 What type of physical activity do you participate in: none and sedentary lifestyle Nery/Sikh: Pentecostal Special nery needs: No Seatbelt use: always Helmet use: Yes Helmet use: always Drive intox or ride w/intox recycling collections driver: No Working smoke detector in home: Yes Fire extinguisher in home: Yes Do you feel safe at home: Yes Do you feel safe in your relationship?: Yes Additional Social history: after 46 years of marriage when his suddenly during an angiogram. 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 He spends a lot of time with her and her family. He's been living on his own since 2013. Son Meet is his health care agent and lives in [place]. Daughter Ingrid is in the midst of relocating from [place] to [place]. He recognizes that he will need acute rehab, but he wants to go home after that. [facility] involved. He would hire people to come in to his home if needed. Exam Const General: cooperative, disheveled and ill appearing chronically Orientation: awake HENLA Head: normal to inspection Ears: hearing grossly normal bilaterally and external ears normal Other: Vomitus noted on right side of the ear Eyes General: appearance normal, both eyes and all related structures Eyelids: eyelids normal Pupils: PERRL EOM: EOM intact bilaterally Neck Neck: normal visual inspection Lymphatic: no lymphadenopathy noted Chest Chest: normal inspection of the chest Resp Effort & Inspection: normal respiratory effort Other: Diminished breath sounds throughout with coarse breath sounds noted in right-sided Cardio Rate: regular rate Rhythm: regular rhythm GI Inspection: normal to inspection Palpation: soft, not firm, no guarding, no hepatosplenomegaly, no masses and nontender Auscultation: hypoactive bowel sounds Male General Exam: Yes normal external exam Other: soiled diaper Neuro General: patient alert and patient awake Cognition: normal cognition Speech: speech normal Extrem Other: Left-sided weakness status post CVA Psych Appearance: grossly normal Mental Status: mental status grossly normal Speech and Movement: speech and movement normal Affect: normal affect Thought Process: normal
[2021-08-06 14:34] VITALS: PULSE 67; RESP 31; RESP 8
[2021-08-06] MEDS: Albuterol/Ipratropium 3 ML UPD VIAL (14:34)
[2021-08-06] MEDS: methylPREDNISolone SUCC 125 MG VIAL IVP (14:35)
[2021-08-06 14:43] LABS: Abs Immature Grans 0.01 10^3/uL (0.0-0.06); Absolute Basophil Count 0.03 10^3/uL (0.0-0.2); Absolute Lymphocyte Count 0.98 10^3/uL (1.2-3.4); Absolute Monocyte Count 0.78 10^3/uL (0.1-0.8); Absolute Neutrophil Count 8.94 10^3/uL (1.2-6.7); Basophils % 0.3; HCT 46.8 % (40.0-50.0); HGB 15.3 g/dL (13.5-17.5); Immature Grans % 0.1; Lymphocytes % 9.1; MCH 30.1 pg (27.0-33.0); MCHC 32.7 % (32.0-36.0); MCV 92 fL (80-95); Monocytes % 7.3; Neutrophils % 83.2; Platelet Count 296 10^3/uL (130-400); RBC 5.09 10^6/uL (4.36-5.78); RDW 14.2 % (11.8-14.1); RDW-SD 47.7 fL; WBC 10.74 10^3/uL (4.4-10.8)
[2021-08-06] MEDS: ACETAMINOPHEN 1,000 MG/100 ML BTL 400 MG IVPB (14:49)
[2021-08-06 14:50] VITALS: BP 79/38; PULSE 59; RESP 27; TEMP 38.4; O2SAT 94
[2021-08-06] MEDS: Normal Saline 1,000 ML 1000 ML IV (15:00)
[2021-08-06 15:02] LABS: Lipase 49 U/L (73-393)
[2021-08-06 15:04] LABS: ALT 167 U/L (16-63); AST 63 U/L (15-37); Albumin 3.1 g/dL (3.4-5.0); Alkaline Phosphatase 158 U/L (46-116); Bilirubin, Total 0.7 mg/dL (0.2-1.0); Calcium 10.1 mg/dL (8.5-10.1); Chloride 90 mmol/L (98-107); Estimated GFR 5.89 (mL/min/1.73m2); Glucose 117 mg/dL (74-106); Sodium 128 mmol/L (136-145); Total Protein 7.5 g/dL (6.4-8.2)
[2021-08-06 15:07] LABS: BUN 177 mg/dL (7-18); CREATININE 8.8 mg/dL (0.70-1.30); Potassium 7.4 mmol/L (3.5-5.1)
--- NOTE | 2021-08-06 15:15 | DI.RAD_ITS ---
Exam(s) XR PORTABLE CHEST AP EXAM: XR PORTABLE CHEST AP CLINICAL HISTORY: hypoxic, r/o acute disease. TECHNIQUE: 2D digital imaging was performed. COMPARISON: CR,XR XR PORTABLE CHEST AP from 06/02/2021 FINDINGS: Single AP portable view. Subcutaneous cardiac loop detector now evident. Heart size is upper normal. The mediastinum is not widened. Patchy infiltrates now noted in both lung maki. No obvious pleural effusions. IMPRESSION: Patchy infiltrates bilaterally. No obvious pleural effusions. DATA REPOSITORY: RADIATION DOSE DELIVERED: All CT scans at this facility use at least one of these dose optimization techniques: automated exposure control; mA and/or kV adjustment per patient size (includes targeted e xams where dose is matched to clinical indication); or iterative reconstruction.
[2021-08-06 15:20] LABS: COVID-19 PCR Negative (Negative); Influenza A PCR Negative (Negative); Influenza B PCR Negative (Negative); RSV PCR Negative (Negative)
[2021-08-06 15:21] LABS: Source Nasopharynx
[2021-08-06 15:25] VITALS: RESP 8
[2021-08-06] MEDS: Albuterol 2.5 MG/3 ML INH SOLN VIAL 5 MG UPD (15:25)
--- NOTE | 2021-08-06 15:50 | DI.VRAD_ITS ---
PROCEDURE INFORMATION: Exam: XR Chest Exam date and time: 08/06/2021 2:58 PM Age: 75 years old Clinical indication: Shortness of breath; Patient HX: Ams/loc, cough TECHNIQUE: Imaging protocol: Radiologic exam of the chest. Views: 1 view. Other technique: Portable exam. COMPARISON: XR PORTABLE CHEST AP 06/02/2021 7:05 PM FINDINGS: Lungs: The lungs are slightly hypoinflated. Overlying medical equipment obscures some detail. New lines there are some coarse airspace opacities in a slightly perihilar and lower lobe distribution. Pleural spaces: Unremarkable. No pleural effusion. No pneumothorax. Heart/Mediastinum: Unremarkable. No cardiomegaly. Diaphragm: Mild elevation left hemidiaphragm. Bones/joints: Unremarkable. Soft tissues: The patient is slightly rotated to the left with mild overlying chin artifact. IMPRESSION: Patchy airspace disease. Consider multifocal pneumonia. Exam limitations as noted. Dictated and Authenticated by: Yana Keita MD. Ordering:VIVEK Marcum MD
[2021-08-06] MEDS: Ondansetron 4 MG/2 ML VIAL IVP (15:56)
[2021-08-06] MEDS: PIPERACILLIN/TAZO 3.375 GM in Normal Saline 50 ML IVPB (16:16)
[2021-08-06] MEDS: Scopolamine 1 MG/3 DAYS PATCH TD (18:06)
--- NOTE | 2021-08-06 18:19 | W.PM.HP.N ---
Date of service: 08/06/21 Time of Service: 18:19 Assessment and Plan Assessment and plan (1) Septic shock: Status: Acute (2) Multifocal pneumonia: Status: Acute (3) Acute kidney injury: Status: Acute (4) Hyperkalemia: Status: Acute Assessment and plan: Comfort measures only (5) Comfort measures only status: Status: Acute Assessment and plan: Comfort measures only - plan is to keep him comfortable, morphine and other comfort meds/measures. History of Present Illness History of Present Illness Chief Complaint: Fever, vomiting, altered mental status Narrative: 75-year-old male who is DNR/DNI with a history of CAD s/p UT, chronic diastolic CHF, NIDDM2, GERD, hypertension, hyperlipidemia, obesity, obstructive sleep apnea and is 2 months status post CVA with residual left-sided weakness currently residing at the [facility] who presents with vomiting, decreased appetite and altered mental status for the past few days.? Staff at [facility] reported that patient has been refusing transfer to the ED. He arrived via EMS to the [facility] ED: Temp was 101.1 rectal on arrival.?The patient was Hypotensive; arrival blood pressure was 79/38.? Oxygen saturation was in high 70s on nonrebreather.? He has coarse breath sounds noted to the right chest.?Labs and imaging reviewed.? White blood cell count 10.? Sodium 128.? Potassium 7.4.? Creatinine 8.8, was 1 in June 2021, Lipase normal. Fluvid negative.? Chest x-ray notes multifocal pneumonia.? Son came to the bedside in the ED and after long discussion with the ED MD, the patient would like to have comfort measures only.? We will withdraw all medications and invasive measures to keep the patient comfortable. He was admitted to the medical surgical floor with high flow nasal cannula oxygen. We will start morphine, medication for nausea and anxiety. Family is in agreement with his wishes. Review of Systems All systems reviewed & are unremarkable except as noted in HPI and below PFSH All Active Problems (Updated 08/07/21 @ 15:03 by Vonda Tejada NP) Multifocal pneumonia (Acute) Septic shock (Acute) Comfort measures only status (Acute) Sepsis (Acute) Pneumonia (Acute) Acute kidney injury (Acute) Hyperkalemia (Acute) Cerebral infarction due to unspecified occlusion or stenosis of right middle cerebral artery (Acute) Goal LDL <70. Goal SBP ~130. Goal A1c <7. Apathy (Acute) Hypotension (Acute) Decreased activities of daily living (ADL) (Acute) Nausea (Acute) Weight loss (Acute) Comfort measures only status (Acute) Health care proxy on file (Acute) son Anoop Price is alternate DNI (do not intubate) (Acute) DNR (do not resuscitate) (Acute) Physician orders for life-sustaining treatment (POLST) form indicates patient wish for [id number] status (Acute) Goals of care, counseling/discussion (Acute) Left hemiparesis (Acute) Folate deficiency (Acute) B12 deficiency (Acute) Dysarthria (Acute) Cognitive deficit as late effect of cerebrovascular accident (CVA) (Acute) Dysarthria as late effect of cerebrovascular accident (CVA) (Acute) Dysphagia as late effect of cerebrovascular accident (CVA) (Acute) Ischemic stroke (Acute) Weakness (Acute) Facial droop (Acute) Groin pain, chronic, right (Acute) Incidental lung nodule, > 3mm and < 8mm (Acute) 10/2020 CT 6-7mm KANIKA lobe; repeat 6 months 11/2020- pt refuses f/u CT Skin lesion (Acute) 11/2020- removed [facility] benign Diabetes type 2, controlled (Chronic) Essential hypertension (Chronic) Status post coronary artery stent placement (Acute) 10/2018 (most recent) now has a total of 5 ([facility]) NSTEMI (non-ST elevated myocardial infarction) (Acute) most recent 10/2018 [facility] Diarrhea (Acute) Gastroesophageal reflux disease (Acute 01/28/13) diet controlled CAD (coronary artery disease) (Chronic) Hyperlipidemia (Chronic) Obesity (Chronic) Erectile dysfunction (Chronic) Seasonal allergies (Chronic) Medical History Alcohol abuse Allergic rhinitis Atherosclerotic heart disease of [place] coronary artery without angina pectoris Closed fracture of radius Depression resolved when taken off beta neftali Discharge planning issues DVT prophylaxis Dysarthria and anarthria Dysphagia, oropharyngeal phase Facial weakness following cerebral infarction History of tobacco use quit smoking age 48 Muscle weakness Myocardial infarct, old a. 1994 Other symbolic dysfunction Perforation of tympanic membrane Pilonidal cyst 2 surgeries in the past- stable Right sided cerebral hemisphere cerebrovascular accident Subsequent non-ST elevation (NSTEMI) myocardial infarction Unspecified abnormalities of gait and mobility Unspecified symptoms and signs involving cognitive functions following cerebral infarction Surgical History Cholecystectomy (~09/2013) History of Surgical Procedure a. Tonsillectomy. b. Pilonidal cysts removed. c. Stenting LAD 2001 d. vasectomy PROCEDURES EXCISION OF PILONID CYST INSERT 1 VASCULAR STENT, 12/14; HEART Status post cholecystectomy Status post tonsillectomy Status post vasectomy Tonsillectomy Vasectomy Family History Mother Hyperlipidemia Stroke Breast cancer Father , 59 Diabetes Essential hypertension Heart disease Hyperlipidemia Maternal Grandfather Essential hypertension Heart disease Paternal Grandfather No problems noted. Maternal Grandmother Stroke Paternal Grandmother No problems noted. Sister No problems noted. Son No problems noted. Daughter No problems noted. Social History Smoking/Tobacco Use Status: Former Tobacco Use tobacco type: cigarettes, pipe and cigars Quit Date: 02/12/93 Pack-years: 55 Tobacco: How many years used: 27 Second Hand Exposure: Yes Smoking risk assessment performed?: Yes Alcohol Intake: current Alcohol Intake frequency: a few times a week Alcohol type: beer, wine and hard liquor Counseling given: No Substance use type: marijuana Caregiver/Support person: Yes Household members: none Housing: house Number of Children: 2 Communication Needs: Hard of Hearing and Corrective Lenses Education Level: master's degree Do you need help understanding health information?: Rarely Pets and animals: No Sexually active: No Do you think of yourself as: straight/heterosexual Current gender identity: decline to answer What is your relationship status?: How often do you talk on the phone with friends or family?: three or more times per week How often do you get together with friends or relatives?: three or more times per week Do you belong to any clubs or organized social groups?: yes Panel score (0-1 are the most socially isolated patients): 2 What type of physical activity do you participate in: none and sedentary lifestyle Nery/Yarsani: Uatsdin Special nery needs: No Seatbelt use: always Helmet use: Yes Helmet use: always Drive intox or ride w/intox rickshaw driver: No Working smoke detector in home: Yes Fire extinguisher in home: Yes Do you feel safe at home: Yes Do you feel safe in your relationship?: Yes Additional Social history: after 46 years of marriage when his suddenly during an angiogram. 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 He spends a lot of time with her and her family. He's been living on his own since 2013. Son Meet is his health care agent and lives in [place]. Daughter Ingrid is in the midst of relocating from [place] to [place]. He recognizes that he will need acute rehab, but he wants to go home after that. [facility] involved. He would hire people to come in to his home if needed. Meds Allergies and Home Medications Allergies Allergy/AdvReac Type Severity Reaction Status Date / Time No Known Drug Allergies Allergy Verified 07/18/21 09:52 Home Medications Medication Instructions Recorded Confirmed Type metformin 500 mg tablet 500 mg PO BID #180 tabs 08/05/20 08/06/21 Rx atorvastatin 80 mg tablet 80 mg PO DAILY #90 tab-caps 08/31/20 08/06/21 Rx amlodipine 10 mg tablet 10 mg PO DAILY #90 tabs 09/30/20 08/06/21 Rx atenolol 25 mg tablet 25 mg PO DAILY #90 tabs 12/10/20 08/06/21 Rx lisinopril 40 mg tablet 40 mg PO DAILY #90 tabs 12/10/20 08/06/21 Rx cyclobenzaprine 10 mg tablet 10 mg PO HS #30 tabs 03/17/21 08/06/21 Rx hydrochlorothiazide 25 mg tablet 25 mg PO DAILY #90 tabs 04/05/21 08/06/21 Rx multivitamin 1 tab PO DAILY 04/05/21 08/06/21 History nitroglycerin 0.4 mg sublingual 0.4 mg sublingual PRN #25 tabs 04/05/21 08/06/21 Rx tablet (Nitrostat) clopidogrel 75 mg tablet 75 mg PO DAILY #30 tabs 06/07/21 08/06/21 Rx cyanocobalamin (vitamin B-12) 500 1,000 mcg PO DAILY #30 tabs 06/07/21 08/06/21 Rx mcg tablet (Vitamin B-12) folic acid 1 mg tablet 1 mg PO DAILY #30 tabs 06/07/21 08/06/21 Rx magnesium oxide 400 mg (241.3 mg 400 mg PO BID #20 tabs 06/07/21 08/06/21 Rx magnesium) tablet calcium carbonate 200 mg calcium 200 mg PO QID 07/14/21 08/06/21 History (500 mg) chewable tablet (Tums) omeprazole 20 mg capsule,delayed 20 mg PO DAILY 07/14/21 08/06/21 History release ondansetron 8 mg disintegrating 8 mg PO Q12H 07/14/21 08/06/21 History tablet acetaminophen 325 mg capsule 650 mg PO Q6H 07/18/21 08/06/21 History (Tylenol) saliva substitute combo no.9 15 ml mucous membrane BID-QID PRN 07/18/21 08/06/21 History (Biotene Dry Mouth Oral Rinse mouthwash) prochlorperazine maleate 5 mg 5 mg PO TID PRN nausea and 07/19/21 08/06/21 Rx tablet (Compazine) vomiting #14 tabs bisacodyl 10 mg rectal suppository 10 mg LA DAILY PRN 08/01/21 08/06/21 History ipratropium bromide 21 mcg (0.03 2 spray intranasal BID 08/01/21 08/06/21 History %) nasal spray sildenafil 50 mg tablet 50 mg PO DAILY PRN 08/01/21 08/06/21 History sodium phosphates 19 gram-7 118 ml LA ONCE 08/01/21 08/06/21 History gram/197 mL enema (Fleet Enema Extra) morphine concentrate 100 mg/5 mL 10 mg (0.5 mL) PO Q3H PRN pain #30 08/03/21 08/06/21 Rx (20 mg/mL) oral solution mL Exam Narrative Exam Narrative: Anoop is supine in bed, HOB 20 degree, he appears comfortable. Reg respiration, RR 20 He arrives with highflow nasal cannula on, it was removed. Const General: cooperative, disheveled and ill appearing chronically Orientation: asleep, decreased LOC HENMT Head: normal to inspection Ears: Other: Eyes General: appearance normal, both eyes and all related structures Eyelids: eyelids normal Pupils: PERRL EOM: EOM intact bilaterally Neck Neck: normal visual inspection Lymphatic: no lymphadenopathy noted Chest Chest: normal inspection of the chest Resp Effort & Inspection: normal respiratory effort Other: Diminished breath sounds throughout with coarse breath sounds on the right Cardio Rate: regular rate Rhythm: regular rhythm GI Inspection: normal to inspection Palpation: soft, not firm, no guarding, no hepatosplenomegaly, no masses and nontender Auscultation: hypoactive bowel sounds Other: Neuro General: asleep Cognition: normal cognition Speech: speech normal Extrem Other: Left-sided weakness status post CVA Psych Appearance: grossly normal Mental Status: mental status grossly normal Speech and Movement: Affect: Thought Process: Skin - pressure wound noted to coccyx Const General: frail appearing and ill appearing Nutritional Appearance: cachectic, thin and underweight Orientation: obtunded HENMT Head: normal to inspection Eyes General: appearance normal, both eyes and all related structures Neck Neck: normal visual inspection Chest Chest: normal inspection of the chest and normal palpation of entire chest wall Resp Effort & Inspection: normal respiratory effort Auscultation: bronchial breath sounds Results Labs Result diagrams: 08/06/21 14:35 08/06/21 14:35 Labs: Laboratory Results - last 24 hr 08/06/21 08/06/21 08/06/21 14:35 14:35 14:35 WBC 10.74 RBC 5.09 Hgb 15.3 Hct 46.8 MCV 92 MCH 30.1 MCHC 32.7 RDW 14.2 H Plt Count 296 MPV 11.0 Immature Gran % 0.1 Neutrophils % 83.2 Lymphocytes % 9.1 Monocytes % 7.3 Eosinophils % 0.0 Basophils % 0.3 Nucleated RBC % 0.0 Absolute Neutrophils 8.94 H Absolute Lymphocytes 0.98 L Absolute Monocytes 0.78 Absolute Eosinophils 0.00 Absolute Basophils 0.03 Sodium 128 L Potassium 7.4 H* Chloride 90 L Carbon Dioxide 21.0 Anion Gap 17.0 H BUN 177 H* Creatinine 8.8 H* Estimated GFR/1.73 m2 5.89 Glucose 117 H Calcium 10.1 Total Bilirubin 0.7 AST 63 H ALT 167 H Alkaline Phosphatase 158 H Total Protein 7.5 Albumin 3.1 L Lipase COVID-19 Source Nasopharynx SARS-CoV-2 (PCR) Negative Influenza Type A (PCR) Negative Influenza Type B (PCR) Negative RSV (PCR) Negative 08/06/21 14:35 WBC RBC Hgb Hct MCV MCH MCHC RDW Plt Count MPV Immature Gran % Neutrophils % Lymphocytes % Monocytes % Eosinophils % Basophils % Nucleated RBC % Absolute Neutrophils Absolute Lymphocytes Absolute Monocytes Absolute Eosinophils Absolute Basophils Sodium Potassium Chloride Carbon Dioxide Anion Gap BUN Creatinine Estimated GFR/1.73 m2 Glucose Calcium Total Bilirubin AST ALT Alkaline Phosphatase Total Protein Albumin Lipase 49 COVID-19 Source SARS-CoV-2 (PCR) Influenza Type A (PCR) Influenza Type B (PCR) RSV (PCR) Last Vital Signs Temp 38.4 C H 08/06/21 14:50 Pulse 59 L 08/06/21 14:50 Resp 27 H 08/06/21 14:50 BP 79/38 L 08/06/21 14:50 Pulse Ox 94 08/06/21 14:50
[2021-08-06] MEDS: MORPHine 4 MG/ML SYR IV/SC ×2 (19:57→23:41)
--- NOTE | 2021-08-06 21:47 | NUR.NOTE ---
Nursing Note: Patient is asleep, resting comfortably. Respirations are even, non labored. No signs of distress to note. PRN Morphine given at 19:57 has been effective for now. Family asked to notify staff, if they notice a change in patients comfort. So we can provide optimal comfort measures. WIll continue to monitor patient closely.
[2021-08-06 21:55] VITALS: TEMP 36.9
[2021-08-06 23:57] VITALS: RESP 20
--- NOTE | 2021-08-06 23:57 | NUR.NOTE ---
Nursing Note: PRN 2mg Morphine given for increased signs of pain/ restlessness.
[2021-08-07] MEDS: Haloperidol 5 MG/ML VIAL IM ×2 (00:41→01:38)
--- NOTE | 2021-08-07 00:48 | NUR.NOTE ---
Nursing Note: PRN IM Haldol given for Hiccups, also for increased agitation. Oral cares and moisturizer also performed.
[2021-08-07] MEDS: MORPHine 4 MG/ML SYR IV/SC ×4 (01:38→14:36)
[2021-08-07] MEDS: Ondansetron 4 MG/2 ML VIAL IVP (11:04)
[2021-08-07] MEDS: Normal Saline Flush 10 ML SYR IVP ×3 (11:05→14:37)
--- NOTE | 2021-08-07 11:37 | NUR.NOTE ---
Nursing Note: Patient was verbally responsive with care. He acknowledged pain and nausea. He was treated with MS and Zofran. care was provided including inc care and oral care. He was made comfortable. Will monitor for effect
[2021-08-07] MEDS: Hyoscyamine 0.125 MG SL/ORAL/CHEW SL ×2 (14:33→21:58)
[2021-08-07] MEDS: MORPHine 1,000 MG in CADD PUMP CASSETTE 1 EACH, Normal Saline 80 ML 0.2 MG SC INF (15:22)
--- NOTE | 2021-08-07 15:24 | PGE_ITS ---
Date of Service Date of service: 08/07/21 Time of Service: 15:25 Assessment and Plan Assessment and plan (1) Septic shock: Status: Acute (2) Multifocal pneumonia: Status: Acute (3) Acute kidney injury: Status: Acute (4) Hyperkalemia: Status: Acute Assessment and plan: Comfort measures only (5) Comfort measures only status: Status: Acute Assessment and plan: Comfort measures only - plan is to keep him comfortable, morphine and other c omfort meds/measures. Initiated morphine CADD pump, giving hyoscyomine for secretions, in addition to scopalamine patch. Appears more comfortable, brow is not longer furrowed, respirations are steady and no increase in work of breathing. Discussed with Dr Parra Subjective Subjective Patient reports: no new complaints Interval history since last seen: Anoop is mostly sleeping - he opens his eyes occasionally - he is grimacing and a bit figety Exam Narrative Exam Narrative: Anoop is supine in bed, HOB 20 degree, he appears comfortable. Reg respiration, RR 20 He arrives with highflow nasal cannula on, it was removed. Const General: cooperative, disheveled and ill appearing chronically Orientation: asleep, decreased LOC HENMT Head: normal to inspection Ears: Other: Eyes General: appearance normal, both eyes and all related structures Eyelids: eyelids normal Pupils: PERRL EOM: EOM intact bilaterally Neck Neck: normal visual inspection Lymphatic: no lymphadenopathy noted Chest Chest: normal inspection of the chest Resp Effort & Inspection: normal respiratory effort Other: Diminished breath sounds throughout with coarse breath sounds on the right Cardio Rate: regular rate Rhythm: regular rhythm GI Inspection: normal to inspection Palpation: soft, not firm, no guarding, no hepatosplenomegaly, no masses and nontender Auscultation: hypoactive bowel sounds Other: Neuro General: asleep Cognition: normal cognition Speech: speech normal Extrem Other: Left-sided weakness status post CVA Psych Appearance: grossly normal Mental Status: mental status grossly normal Speech and Movement: Affect: Thought Process: Skin - pressure wound noted to coccyx Const General: frail appearing and ill appearing Nutritional Appearance: cachectic, thin and underweight Orientation: obtunded HENMT Head: normal to inspection Eyes General: appearance normal, both eyes and all related structures Neck Neck: normal visual inspection Chest Chest: normal inspection of the chest and normal palpation of entire chest wall Resp Effort & Inspection: decreased respiratory effort Auscultation: bronchial breath sounds Other: terminal secretions Cardio Jugular venous pressure: no JVD GI Inspection: normal to inspection and non-distended Skin Full body images: 1. Coccyx, unstageable pressure ulcer Objective Last Vital Signs Temp 36.9 C 08/06/21 21:55 Pulse 59 L 08/06/21 14:50 Resp 20 08/06/21 23:57 BP 79/38 L 08/06/21 14:50 Pulse Ox 94 08/06/21 14:50 Reviewed Pertinent PMH: No
--- NOTE | 2021-08-07 16:30 | PDOC.CMIN ---
- If Service Date Differs Date of service: 08/07/21 Time of Service: 16:30 Care Management Initial Assess REASON FOR HOSPITALIZATION:: Septic shock, multifocal PNA, TANI. PAST MEDICAL HISTORY/PAST SURGICAL HISTORY:: All Active Problems: Multifocal pneumonia (Acute), Septic shock (Acute),. Comfort measures only status (Acute), Sepsis (Acute), Pneumonia (Acute), Acute kidney injury (Acute), Hyperkalemia (Acute), Cerebral infarction due to unspecified occlusion or stenosis of right middle cerebral artery (Acute) - Goal LDL <70. Goal SBP ~130. Goal A1c <7., Apathy (Acute), Hypotension (Acute), Decreased activities of daily living (ADL) (Acute), Nausea (Acute), Weight loss (Acute), Comfort measures only status (Acute), Health care proxy on file (Acute) - son Lea Larson is alternate, DNI (do not intubate) (Acute), DNR (do not resuscitate) (Acute), Physician orders for life-sustaining treatment (POLST) form indicates patient wish for [id number] status (Acute), Goals of care, counseling/discussion (Acute), Left hemiparesis (Acute), Folate deficiency (Acute), B12 deficiency (Acute), Dysarthria (Acute), Cognitive deficit as late effect of cerebrovascular accident (CVA) (Acute), Dysarthria as late effect of cerebrovascular accident (CVA) (Acute), Dysphagia as late effect of cerebrovascular accident (CVA) (Acute), Ischemic stroke (Acute), Weakness (Acute), Facial droop (Acute), Groin pain, chronic, right (Acute), Incidental lung nodule, > 3mm and < 8mm (Acute) - 10/2020 CT 6-7mm KANIKA lobe; repeat 6 months - 11/2020- pt refuses f/u CT, Skin lesion (Acute) - 11/2020- removed [facility] benign, Diabetes type 2, controlled (Chronic), Essential hypertension (Chronic), Status post coronary artery stent placement (Acute) - 10/2018 (most recent) now has a total of 5 ([facility]), NSTEMI (non-ST elevated myocardial infarction) (Acute) - most recent 10/2018 [facility], Diarrhea (Acute), Gastroesophageal reflux disease (Acute 01/28/13) - diet controlled, CAD (coronary artery disease) (Chronic), Hyperlipidemia (Chronic), Obesity (Chronic), Erectile dysfunction (Chronic), and Seasonal allergies (Chronic). Medical History: Alcohol abuse, Allergic rhinitis, Atherosclerotic heart disease of [place] coronary artery without angina pectoris, Closed fracture of radius, Depression - resolved when taken off beta neftali, Discharge planning issues, DVT prophylaxis, Dysarthria and anarthria, Dysphagia, oropharyngeal phase, Facial weakness following cerebral infarction, History of tobacco use - quit smoking age 48, Muscle weakness, Myocardial infarct, old - a. 1994, Other symbolic dysfunction, Perforation of tympanic membrane, Pilonidal cyst - 2 surgeries in the past- stable, Right sided cerebral hemisphere cerebrovascular accident, Subsequent non-ST elevation (NSTEMI) myocardial infarction, Unspecified abnormalities of gait and mobility, and Unspecified symptoms and signs involving cognitive functions following cerebral infarction. Surgical History: Cholecystectomy (~09/2013), History of Surgical Procedure - a. Tonsillectomy. b. Pilonidal cysts removed. c. Stenting LAD 2001. d. vasectomy, PROCEDURES - EXCISION OF PILONID CYST, INSERT 1 VASCULAR STENT, 12/14; HEART, Status post cholecystectomy, Status post tonsillectomy, Status post vasectomy, Tonsillectomy, and Vasectomy. PREVIOUS FUNCTIONAL STATUS/SOCIAL/FAMILY SUPPORTS:: Since May of 2021, Anoop has resided at [facility]. 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 He has 2 adult children who are supportive of him. CURRENT FUNCTIONAL STATUS:: Anopo is asleep when CM comes to meet with him. He is on comfort measures and a morphine CADD pump has been initiated to keep him comfortable. CM will continue to follow. ADVANCE DIRECTIVES:: On file; adult children Kel Arrieta and Ingrid Arrieta are appointed as Health Care Agents. Has patient been provided with info about the portal/API?: Yes Did the patient sign up for the portal?: Yes (Previously enrolled.) CODE STATUS:: DNR/DNI INSURANCE COVERAGE / FINANCIAL ISSUES:: for Life and Medicare. CURRENT HOME/COMMUNITY SERVICES/EQUIPMENT:: Palliative Care. PRIMARY CARE PHYSICIAN:: Renae Ferrer, Ph.D. ([facility]). PLAN:: Anoop is at [facility] for end of life care. He will be closely monitored to ensure his pain is under good control. will continue to support Anoop and his family during this difficult time.
[2021-08-08 00:06] VITALS: RESP 18
--- NOTE | 2021-08-08 02:00 | NUR.NOTE ---
Nursing Note: Patient has been resting comfortably, CAAD Pump Morphine appears to be effective. PRN medication given for secretions. Patients son at bedside, did not think patient is in need of any additional PRN Meds at this time. This blog writer agrees, patient does appear to be comfortable. Work of breathing remains the same, non labored. but Irregular. Patient has been clean and dry at this point tonight. Patient family at bedside, requested patient to not be turned or disrupted from his current position in bed right now. Nursing judgment, patient will be left alone to rest per families wishes and will re-evaluate turning/ repositioning in another two hours. Patients family has been instructed to inform this blog writer of ANY needs patient may have or if they notice any signs of comfort being compromised. Will continue monitoring closely.
--- NOTE | 2021-08-08 10:02 | W.PALLCONSUL ---
Date of service: 08/08/21 Time of Service: 08:45 History of Present Illness Narrative: Mr. Parkinson is a 75 y/oM currently inpt at [facility] 2/2 PNA, on ROUTER OPERATOR PIN, transferred from H/R; PMHx sig for CVA w/cognitive deficit, dysarthria, dysphagia, weakness; DM, HTN, s/p CAD w/coronary artery stent(total 5, last 2018), NSTEMI, GERD; Patient presented from health and rehab over the weekend with multifactorial pneumonia, preference to be on ROUTER OPERATOR PIN, reviewed with bolivar Dsouza sitting at bedside today. Patient has been nonresponsive for previous day, appears comfortable, no acute distress, no grimacing or groaning. Bolivar Dsouza has no questions at this time, feels patient has been ready for transition, denies mold setter services at this time. Reports sister knows the plans for arrangements, believes it will be the same as his mother, [place] Assessment and Plan Assessment and plan (1) Multifocal pneumonia: Status: Acute (2) Comfort measures only status: Status: Acute Assessment and plan: pt appears comfortable, NAD; continue ROUTER OPERATOR PIN meds as ordered; pt has hours to days until EOL pt will remain inpatient thru EOL at [facility], hospitalists to consult PC PRN for care concerns Back Filler Operator services offered, may request at any time [facility] home (3) Health care proxy on file: Status: Acute Assessment and plan: bolivar Dsouza [facility] sitting at bedside, no questions at this time Review of Systems Constitutional Constitutional: Reports as per HPI [facility] All Active Problems Multifocal pneumonia (Acute) Septic shock (Acute) Comfort measures only status (Acute) Sepsis (Acute) Pneumonia (Acute) Acute kidney injury (Acute) Hyperkalemia (Acute) Cerebral infarction due to unspecified occlusion or stenosis of right middle cerebral artery (Acute) Goal LDL <70. Goal SBP ~130. Goal A1c <7. Apathy (Acute) Hypotension (Acute) Decreased activities of daily living (ADL) (Acute) Nausea (Acute) Weight loss (Acute) Comfort measures only status (Acute) Health care proxy on file (Acute) bolivar Dsouza Berny Price is alternate DNI (do not intubate) (Acute) DNR (do not resuscitate) (Acute) Physician orders for life-sustaining treatment (POLST) form indicates patient wish for kn-uwr-wxaqcrkhvie status (Acute) Goals of care, counseling/discussion (Acute) Left hemiparesis (Acute) Folate deficiency (Acute) B12 deficiency (Acute) Dysarthria (Acute) Cognitive deficit as late effect of cerebrovascular accident (CVA) (Acute) Dysarthria as late effect of cerebrovascular accident (CVA) (Acute) Dysphagia as late effect of cerebrovascular accident (CVA) (Acute) Ischemic stroke (Acute) Weakness (Acute) Facial droop (Acute) Groin pain, chronic, right (Acute) Incidental lung nodule, > 3mm and < 8mm (Acute) 10/2020 CT 6-7mm KANIKA lobe; repeat 6 months 11/2020- pt refuses f/u CT Skin lesion (Acute) 11/2020- removed [facility] [place] benign Diabetes type 2, controlled (Chronic) Essential hypertension (Chronic) Status post coronary artery stent placement (Acute) 10/2018 (most recent) now has a total of 5 ([facility] [place] NSTEMI (non-ST elevated myocardial infarction) (Acute) most recent 10/2018 [facility] [place] Diarrhea (Acute) Gastroesophageal reflux disease (Acute 01/28/13) diet controlled CAD (coronary artery disease) (Chronic) Hyperlipidemia (Chronic) Obesity (Chronic) Erectile dysfunction (Chronic) Seasonal allergies (Chronic) Medical History Alcohol abuse Allergic rhinitis Atherosclerotic heart disease of [place] coronary artery without angina pectoris Closed fracture of radius Depression resolved when taken off beta neftali Discharge planning issues DVT prophylaxis Dysarthria and anarthria Dysphagia, oropharyngeal phase Facial weakness following cerebral infarction History of tobacco use quit smoking age 48 Muscle weakness Myocardial infarct, old a. 1994 Other symbolic dysfunction Perforation of tympanic membrane Pilonidal cyst 2 surgeries in the past- stable Right sided cerebral hemisphere cerebrovascular accident Subsequent non-ST elevation (NSTEMI) myocardial infarction Unspecified abnormalities of gait and mobility Unspecified symptoms and signs involving cognitive functions following cerebral infarction Surgical History Cholecystectomy (~09/2013) History of Surgical Procedure a. Tonsillectomy. b. Pilonidal cysts removed. c. Stenting LAD 2001 d. vasectomy PROCEDURES EXCISION OF PILONID CYST INSERT 1 VASCULAR STENT, 12/14; HEART Status post cholecystectomy Status post tonsillectomy Status post vasectomy Tonsillectomy Vasectomy Family History Mother Hyperlipidemia Stroke Breast cancer Father , 59 Diabetes Essential hypertension Heart disease Hyperlipidemia Maternal Grandfather Essential hypertension Heart disease Paternal Grandfather No problems noted. Maternal Grandmother Stroke Paternal Grandmother No problems noted. Sister No problems noted. Son No problems noted. Daughter No problems noted. Social History Smoking/Tobacco Use Status: Former Tobacco Use tobacco type: cigarettes, pipe and cigars Quit Date: 02/12/93 Pack-years: 55 Tobacco: How many years used: 27 Second Hand Exposure: Yes Smoking risk assessment performed?: Yes Alcohol Intake: current Alcohol Intake frequency: a few times a week Alcohol type: beer, wine and hard liquor Counseling given: No Substance use type: marijuana Caregiver/Support person: Yes Household members: none Housing: house Number of Children: 2 Communication Needs: Hard of Hearing and Corrective Lenses Education Level: master's degree Do you need help understanding health information?: Rarely Pets and animals: No Sexually active: No Do you think of yourself as: straight/heterosexual Current gender identity: decline to answer What is your relationship status?: How often do you talk on the phone with friends or family?: three or more times per week How often do you get together with friends or relatives?: three or more times per week Do you belong to any clubs or organized social groups?: yes Panel score (0-1 are the most socially isolated patients): 2 What type of physical activity do you participate in: none and sedentary lifestyle Nery/Evangelical: Confucianist Special nery needs: No Seatbelt use: always Helmet use: Yes Helmet use: always Drive intox or ride w/intox customer service driver: No Working smoke detector in home: Yes Fire extinguisher in home: Yes Do you feel safe at home: Yes Do you feel safe in your relationship?: Yes Additional Social history: after 46 years of marriage when his suddenly during an angiogram. Currently has female orthotics prosthetics assistant, Lea Price. He spends a lot of time with her and her family. He's been living on his own since 2013. Son Meet is his health care agent and lives in [place]. Daughter Ingrid is in the midst of relocating from [place] to [place]. He recognizes that he will need acute rehab, but he wants to go home after that. [facility] involved. He would hire people to come in to his home if needed. Exam Narrative Exam Narrative: Anoop is supine in bed, HOB 20 degree, he appears comfortable. Reg respiration, RR 20 He arrives with highflow nasal cannula on, it was removed. Const General: cooperative, disheveled and ill appearing chronically Orientation: asleep, decreased LOC HENMT Head: normal to inspection Ears: Other: Eyes General: appearance normal, both eyes and all related structures Eyelids: eyelids normal Pupils: PERRL EOM: EOM intact bilaterally Neck Neck: normal visual inspection Lymphatic: no lymphadenopathy noted Chest Chest: normal inspection of the chest Resp Effort & Inspection: normal respiratory effort Other: Diminished breath sounds throughout with coarse breath sounds on the right Cardio Rate: regular rate Rhythm: regular rhythm GI Inspection: normal to inspection Palpation: soft, not firm, no guarding, no hepatosplenomegaly, no masses and nontender Auscultation: hypoactive bowel sounds Other: Neuro General: asleep Cognition: normal cognition Speech: speech normal Extrem Other: Left-sided weakness status post CVA Psych Appearance: grossly normal Mental Status: mental status grossly normal Speech and Movement: Affect: Thought Process: Skin - pressure wound noted to coccyx Const General: comfortable and no acute distress Nutritional Appearance: cachectic, thin and underweight HENMT Head: normal to inspection Neck Neck: normal visual inspection Resp Effort & Inspection: decreased respiratory effort and other (Maulik-Cuevas respiration pattern) Auscultation: bronchial breath sounds Other: terminal secretions Cardio Jugular venous pressure: no JVD GI Inspection: normal to inspection and non-distended Psych Other: pt unresponsive, comfortable Results Last Vital Signs Temp 98.4 F 08/06/21 21:55 Pulse 59 L 08/06/21 14:50 Resp 18 08/08/21 00:06 BP 79/38 L 08/06/21 14:50 Pulse Ox 94 08/06/21 14:50 Labs Result diagrams: 08/06/21 14:35 08/06/21 14:35
--- NOTE | 2021-08-08 12:59 | CMPROGNOTE_ITS ---
- If Service Date Differs Date of service: 08/08/21 Time of Service: 12:59 Care Management Progress Note S/O: Anoop was lying in bed, appearing comfortable when CM visited. His family was in the room visiting. CM discussed final arrangements, and his son stated that his sister had all of the information, but that it would be [facility] who would take care of the final arrangements. Rox, Palliative Care, visited the family earlier today as well. It is expected that Anoop will remain at [facility] for end of life care. CM will continue to support Anoop and his family during this difficult time. A: Anoop is a 75 year old male admitted to [facility] on 08/06/21 for septic shock, PNA, TANI. P: Anoop will remain at [facility] for end of life care. He will be closely monitored to ensure his pain is under good control. His final arrangements will be through [facility]. CM will continue to support Anoop and his family during this difficult time.
--- NOTE | 2021-08-08 20:58 | NUR.NOTE ---
Nursing Note: Pt arrived from ICU to room 225 at 1700. Assisted by RT and nursing supervisor film processing. Patient is alert and oriented, lung sounds crackles/diminished. Denies pain. Has potassium and NS bolus in left hand, noted infiltrate, IV removed, other IV site leaking and had to be removed. Patient assisted to the chair. No skin issues noted. Patient was given dinner from ICU.
[2021-08-08 21:40] VITALS: RESP 14
--- NOTE | 2021-08-09 12:32 | PDOC.CMPRO ---
- If Service Date Differs Date of service: 08/09/21 Time of Service: 12:33 Care Management Progress Note S/O: Anoop appears comfortable with family by his bedside continuously today. He was visited by the Welding Teacher who provided support to the family. CM will continue to support Anoop and his family during this difficult time. A: Anoop is a 75 year old male admitted to [facility] on 08/06/21 for septic shock, PNA, TANI. P: Anoop will remain at [facility] for end of life care. He will be closely monitored to ensure his pain is under good control. His final arrangements will be through [facility]. CM will continue to support Anoop and his family during this difficult time.
--- NOTE | 2021-08-09 15:40 | CHAPLAIN ---
Anoop is on comfort measures. His sister from [place] is with him, and his son, who lives 3 hours away. Anoop has not been responsive for three days, according to other notes. Palliative Care notes, from Rox Lunsford NP, stated that Anoop, and his family, are not interested flare worker visits. I didn't read this until after I had visited.
[2021-08-09] MEDS: Scopolamine 1 MG/3 DAYS PATCH TD (17:09)
--- NOTE | 2021-08-09 23:53 | W.PM.PROGNOT ---
Date of Service Date of service: 08/08/21 Time of Service: 10:00 Assessment and Plan Assessment and plan (1) Multifocal pneumonia: Status: Acute Assessment and plan: WIRE MILL OPERATOR - no treatment (2) Comfort measures only status: Status: Acute Assessment and plan: pt appears comfortable, NAD; continue WIRE MILL OPERATOR meds as ordered; pt has hours to days until EOL pt will remain inpatient thru EOL at [facility] Used Car Renovator services offered (3) Health care proxy on file: Status: Acute Assessment and plan: yanely WHITMORE sitting at bedside, no questions at this time (4) Discharge planning issues: Assessment and plan: [facility] Subjective Subjective Patient reports: no new complaints Interval history since last seen: Resting comfortably, unresponsive Exam Narrative Exam Narrative: Anoop is supine in bed, HOB 20 degree, he appears comfortable. Reg respiration, RR 20 General: unresponsive, disheveled and ill appearing chronically Orientation: asleep, decreased LOC HENMT Head: normal to inspection Ears: Other: Eyes General: appearance normal, both eyes and all related structures Eyelids: eyelids normal Pupils: PERRL EOM: EOM intact bilaterally Neck Neck: normal visual inspection Lymphatic: no lymphadenopathy noted Chest Chest: normal inspection of the chest Resp Effort & Inspection: normal respiratory effort Other: Diminished breath sounds throughout with coarse breath sounds on the right Cardio Rate: regular rate Rhythm: regular rhythm GI Inspection: normal to inspection Palpation: soft, not firm, no guarding, no hepatosplenomegaly, no masses and nontender Auscultation: hypoactive bowel sounds Other: Neuro General: asleep Cognition: normal cognition Speech: Extrem Other: Psych Appearance: grossly normal Mental Status: Speech and Movement: Affect: Thought Process: Skin - pressure wound noted to coccyx Const General: comfortable and no acute distress Nutritional Appearance: cachectic, thin and underweight HENMT Head: normal to inspection Neck Neck: normal visual inspection Resp Effort & Inspection: decreased respiratory effort and other (Maulik-Cuevas respiration pattern) Auscultation: bronchial breath sounds Other: terminal secretions Cardio Jugular venous pressure: no JVD GI Inspection: normal to inspection and non-distended Psych Other: pt unresponsive, comfortable Objective Last Vital Signs Temp 36.9 C 08/06/21 21:55 Pulse 59 L 08/06/21 14:50 Resp 14 08/08/21 21:40 BP 79/38 L 08/06/21 14:50 Pulse Ox 94 08/06/21 14:50
--- NOTE | 2021-08-10 | W.PM.PROGNOT ---
Date of Service Date of service: 08/10/21 Time of Service: 10:30 Assessment and Plan Assessment and plan (1) Multifocal pneumonia: Status: Acute Assessment and plan: CLEARANCE REP - no treatment (2) Comfort measures only status: Status: Acute Assessment and plan: pt appears comfortable, NAD; continue CLEARANCE REP meds as ordered; pt has hours to days until EOL pt will remain inpatient thru EOL at [facility] Welfare Worker services offered (3) Health care proxy on file: Status: Acute Assessment and plan: yanely WHITMORE sitting at bedside, no questions at this time (4) Discharge planning issues: Assessment and plan: [facility] Subjective Subjective Patient reports: no new complaints Interval history since last seen: Virtually unchanged Exam Narrative Exam Narrative: Anoop is supine in bed, HOB 30 degrees, he appears comfortable. Reg respiration, RR 20, occasional pauses General: unresponsive, disheveled and ill appearing chronically Orientation: asleep, decreased LOC HENMT Head: normal to inspection Ears: Other: Eyes General: appearance normal, both eyes and all related structures Eyelids: eyelids normal Pupils: PERRL EOM: EOM intact bilaterally Neck Neck: normal visual inspection Lymphatic: no lymphadenopathy noted Chest Chest: normal inspection of the chest Resp Effort & Inspection: normal respiratory effort Other: Diminished breath sounds throughout with coarse breath sounds on the right Cardio Rate: regular rate Rhythm: regular rhythm GI Inspection: normal to inspection Palpation: soft, not firm, no guarding, no hepatosplenomegaly, no masses and nontender Auscultation: hypoactive bowel sounds Other: Neuro General: asleep Cognition: normal cognition Speech: Extrem Other: Psych Appearance: grossly normal Mental Status: Speech and Movement: Affect: Thought Process: Skin - pressure wound noted to coccyx Const General: comfortable and no acute distress Nutritional Appearance: cachectic, thin and underweight HENMT Head: normal to inspection Neck Neck: normal visual inspection Resp Effort & Inspection: decreased respiratory effort and other (Maulik-Cuevas respiration pattern) Auscultation: bronchial breath sounds Other: terminal secretions Cardio Jugular venous pressure: no JVD GI Inspection: normal to inspection and non-distended Psych Other: pt unresponsive, comfortable Objective Last Vital Signs Temp 36.9 C 08/06/21 21:55 Pulse 59 L 08/06/21 14:50 Resp 14 08/08/21 21:40 BP 79/38 L 08/06/21 14:50 Pulse Ox 94 08/06/21 14:50
--- NOTE | 2021-08-10 10:32 | CMPROGNOTE_ITS ---
- If Service Date Differs Date of service: 08/10/21 Time of Service: 10:32 Care Management Progress Note S/O: Anoop today surrounded by family. His final arrangements have been made through [facility]. A: Anoop is a 75 year old male admitted to [facility] on 08/06/21 for septic shock, PNA, TANI. P: Anoop will remain at [facility] for end of life care. He will be closely monitored to ensure his pain is under good control. His final arrangements will be through [facility]. will continue to support Anoop and his family during this difficult time.
--- NOTE | 2021-08-10 10:32 | PDOC.CMPRO ---
- If Service Date Differs Date of service: 08/10/21 Time of Service: 10:32 Care Management Progress Note S/O: Anoop today surrounded by family. His final arrangements have been made through [facility]. A: Anoop is a 75 year old male admitted to [facility] on 08/06/21 for septic shock, PNA, TANI. P: Anoop will remain at [facility] for end of life care. He will be closely monitored to ensure his pain is under good control. His final arrangements will be through [facility]. will continue to support Anoop and his family during this difficult time.
--- NOTE | 2021-08-10 14:22 | W.PM.DDS ---
Date of service: 08/10/21 Time of Service: 14:22 Discharge Sum: Diag Contributing Factors (1) Multifocal pneumonia: (2) Comfort measures only status: (3) Health care proxy on file: (4) Discharge planning issues:
--- NOTE | 2021-08-17 23:24 | W.PM.PROGNOT ---
Date of Service Date of service: 08/08/21 Time of Service: 12:30 Assessment and Plan Assessment and plan (1) Multifocal pneumonia: Status: Acute Assessment and plan: DISTRICT MANAGER PRIMARY CARE SALES (2) Comfort measures only status: Status: Acute Assessment and plan: pt appears comfortable, NAD; continue DISTRICT MANAGER PRIMARY CARE SALES meds as ordered; pt has hours to days until EOL pt will remain inpatient thru EOL at [facility] (3) Health care proxy on file: Status: Acute Assessment and plan: son is with him, sitting at bedside, no questions at this time (4) Discharge planning issues: Assessment and plan: [facility] Subjective Subjective Patient reports: no new complaints Interval history since last seen: Appears to be resting comfortably Exam Narrative Exam Narrative: Anoop continues to be supine in bed, HOB 30 degrees, appears comfortable. Reg respiration, RR 18, occasional pauses General: unresponsive, disheveled and ill appearing chronically Orientation: asleep, decreased LOC HENMT Head: normal to inspection Ears: Other: Eyes General: appearance normal, both eyes and all related structures Eyelids: eyelids normal Pupils: PERRL EOM: EOM intact bilaterally Neck Neck: normal visual inspection Lymphatic: no lymphadenopathy noted Chest Chest: normal inspection of the chest Resp Effort & Inspection: normal respiratory effort Other: Diminished breath sounds throughout with coarse breath sounds on the right Cardio Rate: regular rate Rhythm: regular rhythm GI Inspection: normal to inspection Palpation: soft, not firm, no guarding, no hepatosplenomegaly, no masses and nontender Auscultation: hypoactive bowel sounds Other: Neuro General: asleep Cognition: normal cognition Speech: Extrem Other: Psych Appearance: grossly normal Mental Status: Speech and Movement: Affect: Thought Process: Skin - pressure wound noted to coccyx Const General: comfortable and no acute distress Nutritional Appearance: cachectic, thin and underweight HENMT Head: normal to inspection Neck Neck: normal visual inspection Resp Effort & Inspection: decreased respiratory effort and other (Maulik-Cuevas respiration pattern) Auscultation: bronchial breath sounds Other: terminal secretions Cardio Jugular venous pressure: no JVD GI Inspection: normal to inspection and non-distended Psych Other: pt unresponsive, comfortable Objective Last Vital Signs Temp 36.9 C 08/06/21 21:55 Pulse 59 L 08/06/21 14:50 Resp 14 08/08/21 21:40 BP 79/38 L 08/06/21 14:50 Pulse Ox 94 08/06/21 14:50
== END 2021-08-10 11:25 | disposition expired | DRG 871 ==
LOC: ER 16:50 → MS 17:35
PROVIDERS: Admitting Provider Internal Medicine; Emergency Provider Physician Assistant; PCP Nurse Practitioner; Visit Provider Internal Medicine
DX: A41.9 Sepsis, unspecified organism (principal); R65.21 Severe sepsis with septic shock; J18.9 Pneumonia, unspecified organism; N17.9 Acute kidney failure, unspecified; I69.354 Hemiplegia and hemiparesis following cerebral infarction affecting left non-dominant side; I50.32 Chronic diastolic (congestive) heart failure; E87.5 Hyperkalemia; Z51.5 Encounter for palliative care; Z66 Do not resuscitate; E11.9 Type 2 diabetes mellitus without complications; K21.9 Gastro-esophageal reflux disease without esophagitis; I11.0 Hypertensive heart disease with heart failure; E78.5 Hyperlipidemia, unspecified; G47.33 Obstructive sleep apnea (adult) (pediatric); E53.8 Deficiency of other specified B group vitamins; I69.322 Dysarthria following cerebral infarction; I69.391 Dysphagia following cerebral infarction; R13.19 Other dysphagia; G89.29 Other chronic pain; R91.1 Solitary pulmonary nodule; R53.1 Weakness; Z95.5 Presence of coronary angioplasty implant and graft; I25.2 Old myocardial infarction; I25.10 Atherosclerotic heart disease of native coronary artery without angina pectoris; Z87.891 Personal history of nicotine dependence; Z79.84 Long term (current) use of oral hypoglycemic drugs; L89.150 Pressure ulcer of sacral region, unstageable
CPT/HCPCS: 36415; 80053; 83690; 87637; 93005; 96361; 96365; 96375; 99285; 71045; 85025; 93010; 94640; 99222; 99232; 99238; J0131; J1630; J2270; J2405; J2543; J2930; J3490; J7613; J7620